=== PATIENT | female | born 1930 | race Caucasian/White ===

== ENCOUNTER 2016-09-23 15:21 | Inpatient (IN) | payer MEDICARE, BC ==
[~2016-09-23] VITALS: Ht 165.1 cm; Wt 73.9 kg
[~2016-09-23 15:21] MED LIST: AMLO10TA4 PO; ATOR20TA PO; CHOL20004 PO; HYDR-3326 PO; LISI10TA5 PO; METO50TA7 PO; PANT40TA2 PO; PROP150T2 PO; RIVA10TA PO; SITA50TA PO
[2016-09-23] MEDS ORDERED: LEVEMIR INSULIN (15:37)
[2016-09-23] MEDS ORDERED: SIMV40TA5 PO (15:37)
[2016-09-23] MEDS ORDERED: magnesium PO (15:37)
[2016-09-23] MEDS ORDERED: ALLO300T2 PO (15:37)
--- NOTE | 2016-09-23 15:40 | NUR ---
NEW ADMISSION TO ROOM 212. PATIENT ALERT AND ORIENTED IN NO ACUTE DISTRESS. NO C/O PAIN AT THIS TIME. ADMISSION ORDERS RECEIVED FROM DR. BLANCA.
[2016-09-23 15:52] LABS: BASOPHILS # (AUTO) 0.3 K/uL (0.0-0.2); BASOPHILS % (AUTO) 1.5 % (0.0-2.0); EOSINOPHILS % (AUTO) 0.1 % (0.0-7.0); HEMATOCRIT 38.8 % (37.0-47.0); HEMOGLOBIN 12.5 g/dL (12.0-16.0); LYMPHOCYTES # (AUTO) 0.6 K/uL (0.8-4.8); LYMPHOCYTES % (AUTO) 2.8 % (20.5-51.5); MEAN CORPUSCULAR HEMOGLOBIN 28.8 uug (27.0-31.0); MEAN CORPUSCULAR HGB CONC 32 g/dL (32.0-37.0); MEAN CORPUSCULAR VOLUME 89.4 fL (81.0-99.0); MONOCYTES # (AUTO) 0.5 K/uL (0.1-1.30); MONOCYTES % (AUTO) 2.4 % (0.0-11.0); NEUTROPHILS % (AUTO) 93.2 % (38.5-71.5); PLATELET COUNT (AUTO) 297 K/uL (150-450); RED BLOOD CELL COUNT(AUTO) 4.34 MIL/uL (4.20-5.40); RED CELL DISTRIBUTION WIDTH 16.2 % (11.5-14.5); WHITE BLOOD COUNT (AUTO) 20.4 K/uL (4.0-11.2)
[2016-09-23] MEDS ORDERED: CEFTRIAXONE 1 G VIAL IM SCH (16:00)
[2016-09-23 16:22] LABS: CALCIUM 8.4 mg/dL (8.5-10.1); POTASSIUM 4.1 mmol/L (3.5-5.1)
[2016-09-23 16:24] LABS: CREATININE 1.4 mg/dL (0.6-1.3)
[2016-09-23 16:26] LABS: ACANTHOCYTES 1+; ANISOCYTOSIS 1+; BAND % (MANUAL) 5 % (0-10); LYMPHOCYTES % (MANUAL) 3 % (20-40); MONOCYTES % (MANUAL) 3 % (2-10); NEUTROPHILS % (MANUAL) 89 % (42-75); PLATELET ESTIMATE ADEQUATE
[2016-09-23] MEDS ORDERED: IV NORMAL SALINE 1000 ML BAG IV ONE (16:30)
[2016-09-23] MEDS ORDERED: CEFTRIAXONE 1 G in IV DEXTROSE 5% 50 ML IV ONE (16:45)
[2016-09-23] MEDS ORDERED: CEFTRIAXONE 1 G VIAL ONE (17:02)
--- NOTE | 2016-09-23 17:20 | NUR ---
Urine collection endorsed to Cadd Instructor. Unable to collect in ER , patient refused during attempt
[2016-09-23 17:25] LABS: LACTIC ACID 2.1 mmol/L (0.4-2.0)
--- NOTE | 2016-09-23 17:25 | NUR ---
Pt. admitted to Med Surg , under care of . Dx : Leukocytosis/UTI Belongs List completed.
[2016-09-23 18:00] VITALS: BP 156/62
[2016-09-23] MEDS ORDERED: CEFTRIAXONE 1 G in IV DEXTROSE 5% 50 ML IV SCH (18:00)
[2016-09-23] MEDS ORDERED: IV D5/ 0.9% NACL 1,000 ML IV PRN (18:00)
[2016-09-23] MEDS: IV D5/ 0.9% NACL 1,000 ML IV PRN (19:09)
--- NOTE | 2016-09-23 19:39 | NUR ---
END OF SHIFT NOTE: PATIENT IN NO ACUTE DISTRESS THROUGHOUT SHIFT. DENIED PAIN. VSS. IVF RUNNING AT THIS TIME. HAD A BM . IVF RUNNING. FALL PRECAUTIONS IN PLACE. UNABLE TO COLLECT URINE ENDORSED TO RN AND SBAR REPORT GIVEN TO YOUSUF MART.
[2016-09-23 19:52] LABS: BILIRUBIN,DIRECT 0.1 mg/dL (0.0-0.2); BILIRUBIN,TOTAL 0.3 mg/dL (0.2-1.0)
[2016-09-23 20:00] VITALS: BP 132/42
[2016-09-23] MEDS ORDERED: SIMVASTATIN 40 MG TABLET PO SCH (21:00)
[2016-09-23] MEDS: RIVAROXABAN 15 MG TABLET PO SCH (23:51)
[2016-09-24] MEDS: MORPHINE SULFATE 2 MG/1 ML DISP.SYRIN IV PRN ×2 (00:09→09:36)
[2016-09-24] MEDS ORDERED: MORPHINE SULFATE 2 MG/1 ML DISP.SYRIN ONE (00:09)
[2016-09-24 04:07] VITALS: BP 141/55
[2016-09-24] MEDS: IV D5/ 0.9% NACL 1,000 ML IV PRN (07:43)
--- NOTE | 2016-09-24 08:00 | NUR ---
SEEN BY DR QUINN MADE AWARE OF LAB RESULTS SO WITH URINE, AND ELEVATED GLUCOSE WITH ORDER
[2016-09-24 08:08] LABS: BASOPHILS # (AUTO) 0.2 K/uL (0.0-0.2); BASOPHILS % (AUTO) 0.6 % (0.0-2.0); HEMOGLOBIN 11.6 g/dL (12.0-16.0); LYMPHOCYTES # (AUTO) 1.1 K/uL (0.8-4.8); LYMPHOCYTES % (AUTO) 4.2 % (20.5-51.5); MEAN CORPUSCULAR HEMOGLOBIN 29.7 uug (27.0-31.0); MEAN CORPUSCULAR HGB CONC 33 g/dL (32.0-37.0); MEAN CORPUSCULAR VOLUME 89.7 fL (81.0-99.0); MONOCYTES # (AUTO) 0.7 K/uL (0.1-1.30); MONOCYTES % (AUTO) 2.7 % (0.0-11.0); NEUTROPHILS # (AUTO) 24.4 K/uL (1.8-8.9); NEUTROPHILS % (AUTO) 92.5 % (38.5-71.5); PLATELET COUNT (AUTO) 311 K/uL (150-450); RED CELL DISTRIBUTION WIDTH 15.9 % (11.5-14.5); WHITE BLOOD COUNT (AUTO) 26.4 K/uL (4.0-11.2)
[2016-09-24 08:19] LABS: CALCIUM 7.5 mg/dL (8.5-10.1); POTASSIUM 3.2 mmol/L (3.5-5.1)
[2016-09-24 08:40] LABS: *BLOOD, URINE NEGATIVE (NEGATIVE); *CLARITY,URINE CLOUDY (CLEAR); *COLOR,URINE YELLOW (YELLOW); *KETONES,URINE TRACE (NEGATIVE); *UROBILINOGEN,URINE 0.2 E.U./dl (NORMAL); NITRITE, URINE NEGATIVE (NEGATIVE); UGLUCOSE NEGATIVE (NEGATIVE)
[2016-09-24 08:46] LABS: CREATININE 1.4 mg/dL (0.6-1.3)
[2016-09-24 08:54] LABS: *BILIRUBIN,URIN 1+ (NEGATIVE); *PROTEIN,URINE 3+ (NEGATIVE); LEUKOCYTE ESTERASE ,URINE TRACE (NEGATIVE)
[2016-09-24 08:56] LABS: ICTOTEST POSITIVE (NEGATIVE)
[2016-09-24 08:59] LABS: BACTERIA,URINE MA /HPF (NONE SEEN); RBC,URINE NONE SEEN /HPF (0-3); SQUAMOUS EPITHELIAL CELL,UR FEW /HPF (NONE SEEN)
[2016-09-24] MEDS ORDERED: DEXTROSE 50% 50 ML DISP.SYRIN IV PRN ×2 (09:00)
[2016-09-24] MEDS ORDERED: INSULIN REGULAR, HUMAN 300 UNIT/3 ML VIAL SQ PRN (09:00)
[2016-09-24] MEDS ORDERED: SITAGLIPTIN PHOSPHATE 50 MG TABLET PO SCH (09:00)
[2016-09-24] MEDS ORDERED: POTASSIUM CHLORIDE 10 MEQ CAPSULE.SA PO ONE (09:00)
[2016-09-24] MEDS ORDERED: INSULIN DETEMIR 300 UNIT/3 ML CARTRIDGE SQ SCH (09:00)
[2016-09-24] MEDS ORDERED: INSULIN REGULAR, HUMAN 300 UNITS/3 ML VIAL SQ PRN (09:00)
[2016-09-24] MEDS: MAGNESIUM OXIDE 250 MG TABLET PO SCH (09:30)
[2016-09-24] MEDS: PROPAFENONE HCL 150 MG TABLET PO SCH ×2 (09:31→17:32)
[2016-09-24] MEDS: METOPROLOL SUCCINATE XL 50 MG TAB.SR.24H PO SCH (09:31)
[2016-09-24] MEDS: CHOLECALCIFEROL 1,000 UNIT TABLET PO SCH (09:31)
[2016-09-24] MEDS: AMLODIPINE 10 MG TABLET PO SCH (09:31)
[2016-09-24] MEDS: LISINOPRIL 10 MG TABLET PO SCH (09:32)
[2016-09-24] MEDS: ONDANSETRON 4 MG/2 ML VIAL IV PRN ×2 (09:36→17:38)
[2016-09-24] MEDS: SITAGLIPTIN PHOSPHATE 50 MG TABLET PO SCH (09:47)
[2016-09-24] MEDS ORDERED: BLOOD SUGAR DIAGNOSTIC 1 EACH STRIP VI SCH (11:30)
[2016-09-24 11:47] VITALS: BP 141/53
[2016-09-24] MEDS: BLOOD SUGAR DIAGNOSTIC 1 EACH STRIP VI SCH ×3 (11:59→21:20)
[2016-09-24] MEDS: INSULIN REGULAR, HUMAN 300 UNIT/3 ML VIAL SQ PRN (12:02)
--- NOTE | 2016-09-24 12:29 | NUR ---
RESTING WITH EYES CLOSED NO SIGNS OF PAIN OR DISTRESS. REFUSED TO EAT LUNCH. CONTINUE WITH IVF AT 80ML/HR
--- NOTE | 2016-09-24 13:40 | NUR ---
CLINICAL PHARMACY NOTE: VANCOMYCIN DOSING Request for vancomycin dosing on 86 y/o female 5'5" 134lbs for sepsis Temp 98.2 BUN 35 Scr 1.4 WBC 26.4 also on Zosyn Give vancomycin 1gm ivpb today will dose by levels. Random vancomycin level ordered 24hours post dose. Will continue to monitor
[2016-09-24] MEDS ORDERED: IV NORMAL SALINE 250 ML IV ONE (13:49)
[2016-09-24] MEDS ORDERED: IOHEXOL 300MG/ML 100 ML INFUS..BTL ONE (13:49)
[2016-09-24] MEDS ORDERED: METRONIDAZOLE 500 MG/NS 100ML 500 MG in PREMIXED 1 EACH IV SCH (14:00)
[2016-09-24] MEDS: PIPERACILLIN/TAZOBACTAM/D5W 2.25 G in PREMIXED 1 EACH IV SCH ×2 (14:17→20:28)
[2016-09-24] MEDS ORDERED: VANCOMYCIN IV 1 G in PREMIXED 0 EACH IV ONE (15:00)
[2016-09-24 15:14] VITALS: BP 130/49
--- NOTE | 2016-09-24 16:43 | NUR ---
PATIENT GOING TO NUCLEAR MEDICINE FOR CT SCAN NOW
[2016-09-24] MEDS ORDERED: CEFTRIAXONE 1 G in IV DEXTROSE 5% 50 ML IV SCH (17:00)
[2016-09-24] MEDS: RIVAROXABAN 15 MG TABLET PO SCH (17:34)
[2016-09-24] MEDS ORDERED: RIVAROXABAN 15 MG TABLET PO SCH (18:00)
[2016-09-24] MEDS ORDERED: RIVAROXABAN 10 MG TABLET PO SCH (18:00)
[2016-09-24] MEDS ORDERED: ALLOPURINOL 300 MG TABLET PO SCH (18:00)
--- NOTE | 2016-09-24 18:23 | NUR ---
URINE NOTED CLOUDY WITH FOUL ODOR.
--- NOTE | 2016-09-24 19:25 | NUR ---
nsg: pt received awake. has severe generalized edema. on 2L O2 via nc saturating at 95%. f/c draining cloudy colored urine, with foul odor. HOB elevated 35 degrees. bue elevated on pillows. denies n /v and abd pain at this time. cont to monitor.
--- NOTE | 2016-09-24 20:30 | NUR ---
Dr. Govea, radiologist, called regarding result of ct abd/pelvis. per md, pt has diverticulitis and renal lesion, and to notify sweet potato disintegrator. will call Dr. Levy.
--- NOTE | 2016-09-24 20:40 | NUR ---
nsg: paged Dr. Levy to notify regarding ct abd/pelvis result and also, concern that pt is more edematous than this morning. awaiting call back.
[2016-09-24 20:43] VITALS: BP 130/52
[2016-09-24] MEDS ORDERED: ATORVASTATIN 20 MG TABLET PO SCH (21:00)
--- NOTE | 2016-09-25 | NUR ---
nsg: no change in condition.
[2016-09-25] MEDS: IV D5/ 0.9% NACL 1,000 ML IV PRN (01:49)
[2016-09-25] MEDS: PIPERACILLIN/TAZOBACTAM/D5W 2.25 G in PREMIXED 1 EACH IV SCH ×5 (03:20→19:30)
[2016-09-25 05:21] VITALS: BP 115/49
--- NOTE | 2016-09-25 05:51 | NUR ---
nsg: pt more edematous compared fr last night. stopped ivf and will notify md. unable to obtain blood for blood draw bec pt is severely edematous. will cont to monitor.
--- NOTE | 2016-09-25 05:55 | NUR ---
nsg: DR. Levy never called back. pt is severely edematous. will notify .
[2016-09-25] MEDS: BLOOD SUGAR DIAGNOSTIC 1 EACH STRIP VI SCH ×4 (06:30→20:57)
--- NOTE | 2016-09-25 07:45 | NUR ---
INFORMED THE PATIENT THAT HER BLOOD SUGAR RESULT CALLS FOR INSULIN COVERAGE AND THAT SHE NEEDED TO TRY AND EAT HER BREAKFAST BUT SHE STATED THAT SHE WAS NOT HUNGRY AND WILL NOT EAT SO I DID NOT GIVE HER THE DUE INSULIN FOR FEAR OF HYPOGLYCEMIA.
--- NOTE | 2016-09-25 08:15 | NUR ---
PATIENT REFUSED TO EAT HER BREAKFAST REQUESTED FOR JELLO AND TOOK COSMO TWO SPOONS OF THE JELLO AND REFUSED THE REST.
--- NOTE | 2016-09-25 08:30 | NUR ---
PATIENT HAS EDEMA OF THE ENTIRE BODY ESPECIALLY THE UPPER AND LOWE EXTREMITIES ELEVATED ON PILLOWS TO FACILITATE THE DRAINAGE OF THE EDEMA.SHE IS ON FIRST STEP MATTRASS NOTED REDNESS OF THE SACRAL AREA DR BLANCA NOTIFIED WITH ORDERS.PATIENT TURNED AND REPOSITIONED Q2H MADE COMFORTABLE.
[2016-09-25] MEDS: SITAGLIPTIN PHOSPHATE 50 MG TABLET PO SCH (08:51)
[2016-09-25] MEDS: METOPROLOL SUCCINATE XL 50 MG TAB.SR.24H PO SCH (08:51)
[2016-09-25] MEDS: AMLODIPINE 10 MG TABLET PO SCH (08:51)
[2016-09-25] MEDS: PROPAFENONE HCL 150 MG TABLET PO SCH ×2 (08:51→16:43)
[2016-09-25] MEDS: LISINOPRIL 10 MG TABLET PO SCH (08:58)
[2016-09-25] MEDS: CHOLECALCIFEROL 1,000 UNIT TABLET PO SCH (08:58)
[2016-09-25] MEDS: MAGNESIUM OXIDE 250 MG TABLET PO SCH (09:06)
[2016-09-25] MEDS: Z GUARD REMEDY PASTE 57 GM TUBE TOP SCH ×2 (09:30→19:35)
--- NOTE | 2016-09-25 11:10 | NUR ---
DR QUINN HERE TO SEE AND EXAMINE PATIENT AND HE IS AWARE OF GENERALISED EDEMA OF THE ENTIRE BODY ESPECIALLY BILATERAL UPPER AND LOWER EXTREMITIES WITH NEW ORDERS AND NOTED.
[2016-09-25] MEDS ORDERED: BUMETANIDE INJ 4 MG in IV DEXTROSE 5% 24 ML IV ONE (11:15)
[2016-09-25 11:33] VITALS: BP 135/48
[2016-09-25] MEDS: POTASSIUM CHLORIDE 50 ML IV SCH ×2 (11:37→12:49)
[2016-09-25] MEDS: INSULIN REGULAR, HUMAN 300 UNIT/3 ML VIAL SQ PRN ×2 (11:41→21:04)
--- NOTE | 2016-09-25 12:41 | NUR ---
RECEIVED RESULT FROM [email or web address] PATIENT IS POSITIVE FOR C DIFF IN STOOL PAGED DR QUINN AWAITING FOR RETURN CALL.PATIENT IS ALREADY ON ISOLATION AT THIS TIME.
[2016-09-25 15:41] VITALS: BP 123/51
[2016-09-25 15:45] VITALS: BP 123/51
--- NOTE | 2016-09-25 15:45 | NUR ---
DR JOSE MARTIN BROWN RETURNED CALL NOTIFIED HER OF POSITIVE C DIFF IN THE STOOL WITH NEW ORDERS AND NOTED.
--- NOTE | 2016-09-25 16:30 | NUR ---
MID LINE INSERTED TO HER LEFT UPPER ARM BY DR ZORAN KIM AND PATIENT TOLERATED PROCEDURE WELL REMAIN ON BUMEX DRIP ORDERED.
--- NOTE | 2016-09-25 16:37 | NUR ---
Discharge Plan: The patient might be needing group home care once medically cleared. She only has Medicare and no secondary insurance. She and her family are aware but she does not qualify for [facility] and will have a co-pay at the SNF. Spoke at length with her brother, Jarett [ ], and caregiver, Clover [ ] about the discharge and they both stated that they might hire an extra caregiver at home. Dr. Levy is aware and will look at different facilities that can accommodate her needs and work with her co-pay. CM/SW will follow-up.
[2016-09-25 17:03] LABS: BILIRUBIN,TOTAL 0.3 mg/dL (0.2-1.0); CALCIUM 7.4 mg/dL (8.5-10.1); MAGNESIUM 1.3 mg/dL (1.8-2.4); PHOSPHOROUS 3.1 mg/dL (2.5-4.9); POTASSIUM 3.4 mmol/L (3.5-5.1); TOTAL PROTEIN, SERUM 4.5 g/dL (6.4-8.2)
[2016-09-25 17:09] LABS: CREATININE 1.7 mg/dL (0.6-1.3)
[2016-09-25] MEDS ORDERED: VANCOMYCIN IV 1 G in PREMIXED 0 EACH IV ONE ×2 (17:15→18:30)
--- NOTE | 2016-09-25 17:15 | NUR ---
RECEIVED RESULT FROM THE LAB ALBUMIN LEVEL IS 1.[address] IN[address] JOSE MARTIN BROWN WITH NO NEW ORDERS AT THIS TIME.
[2016-09-25 17:16] LABS: ALBUMIN 1.2 g/dL (3.4-5.0)
--- NOTE | 2016-09-25 17:17 | NUR ---
CLINICAL PHARMACY NOTE: VANCOMYCIN DOSING Request for vancomycin dosing on 86 y/o female 5'5" 134lbs for sepsis Temp 98.2 BUN 36 Scr 1.7 WBC 26.4 (09/24) also on Zosyn Random: 10 @1700 09/25 today Will continue to dose by fall off levels as Scr increased and advanced age. Random drawn late today, dosed another 1gm vanco x 1 based off random level when received. Another random vancomycin level ordered 24hours post dose (due tomorrow 09/26 @1700). Will continue to monitor and re-dose as appropriate. Addendum: 09/25/16 at 1728 by LORENA JOE ADM PT ONLY HAS ONE IV LINE, IS SEVERELY EDEMATOUS AND ON BUMEX DRIP, ENDING 1829. RESCHEDULED VANCO FOR 1829 UNABLE TO ADMINISTER
[2016-09-25] MEDS: RIVAROXABAN 15 MG TABLET PO SCH (17:47)
[2016-09-25 19:00] VITALS: BP 136/45
--- NOTE | 2016-09-25 21:41 | NUR ---
Tarry small liquid stool noted, stool sample sent to lab for stool culture. Perianal care provided. Kept comfortable.
[2016-09-25] MEDS: METRONIDAZOLE 500 MG/NS 100ML 500 MG in PREMIXED 1 EACH IV SCH (23:09)
[2016-09-25] MEDS: MORPHINE SULFATE 2 MG/1 ML DISP.SYRIN IV PRN (23:13)
[2016-09-25] MEDS: ONDANSETRON 4 MG/2 ML VIAL IV PRN (23:13)
[2016-09-26] MEDS: PIPERACILLIN/TAZOBACTAM/D5W 2.25 G in PREMIXED 1 EACH IV SCH ×4 (01:41→19:51)
[2016-09-26 04:43] VITALS: BP 153/57
[2016-09-26] MEDS: METRONIDAZOLE 500 MG/NS 100ML 500 MG in PREMIXED 1 EACH IV SCH ×3 (05:01→21:16)
[2016-09-26 06:00] LABS: BILIRUBIN,TOTAL 0.4 mg/dL (0.2-1.0); CALCIUM 6.9 mg/dL (8.5-10.1); PHOSPHOROUS 3.1 mg/dL (2.5-4.9); POTASSIUM 2.9 mmol/L (3.5-5.1)
[2016-09-26 06:07] LABS: CREATININE 1.6 mg/dL (0.6-1.3)
[2016-09-26 06:08] LABS: MAGNESIUM 1.1 mg/dL (1.8-2.4)
[2016-09-26] MEDS: BLOOD SUGAR DIAGNOSTIC 1 EACH STRIP VI SCH ×4 (06:40→21:00)
[2016-09-26] MEDS: IV D5/ 0.9% NACL 1,000 ML IV PRN ×2 (06:50→19:00)
--- NOTE | 2016-09-26 07:00 | NUR ---
Kept comfortable. No acute resp distress.
[2016-09-26] MEDS: PROPAFENONE HCL 150 MG TABLET PO SCH ×2 (08:01→16:47)
[2016-09-26] MEDS: METOPROLOL SUCCINATE XL 50 MG TAB.SR.24H PO SCH (08:02)
[2016-09-26] MEDS: AMLODIPINE 10 MG TABLET PO SCH (08:02)
[2016-09-26] MEDS: CHOLECALCIFEROL 1,000 UNIT TABLET PO SCH (08:02)
[2016-09-26] MEDS: LISINOPRIL 10 MG TABLET PO SCH (08:02)
[2016-09-26] MEDS: Z GUARD REMEDY PASTE 57 GM TUBE TOP SCH ×2 (08:03→20:00)
[2016-09-26 08:27] LABS: HEMATOCRIT 30.8 % (37.0-47.0); HEMOGLOBIN 9.9 g/dL (12.0-16.0); MEAN CORPUSCULAR HEMOGLOBIN 29.5 uug (27.0-31.0); MEAN CORPUSCULAR VOLUME 91.8 fL (81.0-99.0); RED BLOOD CELL COUNT(AUTO) 3.36 MIL/uL (4.20-5.40); WHITE BLOOD COUNT (AUTO) 38.1 K/uL (4.0-11.2)
[2016-09-26 08:28] LABS: EOSINOPHILS % (AUTO) 0.1 % (0.0-7.0); LYMPHOCYTES # (AUTO) 0.7 K/uL (0.8-4.8); LYMPHOCYTES % (AUTO) 1.9 % (20.5-51.5); MEAN CORPUSCULAR HGB CONC 32 g/dL (32.0-37.0); MONOCYTES % (AUTO) 2.6 % (0.0-11.0); NEUTROPHILS # (AUTO) 36.4 K/uL (1.8-8.9); NEUTROPHILS % (AUTO) 95.4 % (38.5-71.5); PLATELET COUNT (AUTO) 270 K/uL (150-450); RED CELL DISTRIBUTION WIDTH 18.1 % (11.5-14.5)
--- NOTE | 2016-09-26 09:00 | NUR ---
Dr Levy notified of elevated WBC 38,000, K2.9, Albumin 1.0, H/H 9.9/30.8, MG 1.1 new orders received and carried out. Notified Dr Howe of elevated WBC 3800 Urine sent out and blood culture done as ordered
[2016-09-26] MEDS: POTASSIUM CHLORIDE 50 ML IV SCH ×8 (09:37→23:02)
--- NOTE | 2016-09-26 10:00 | NUR ---
Pt alert and oriented x 4. Clarified with pt code status on what she wants full code or no code secondary to computer charting states full code and kardex paper written DNR. Pt states that she wants to be full code.
[2016-09-26 10:16] LABS: BAND % (MANUAL) 6 % (0-10); LYMPHOCYTES % (MANUAL) 5 % (20-40); NEUTROPHILS % (MANUAL) 89 % (42-75)
[2016-09-26 10:19] LABS: ANISOCYTOSIS 1+; OVALOCYTES 1+; PLATELET ESTIMATE ADEQUATE; TARGET CELLS 1+
[2016-09-26] MEDS ORDERED: METOLAZONE 2.5 MG TABLET PO ONE (11:15)
[2016-09-26 12:00] VITALS: BP 105/35
[2016-09-26] MEDS ORDERED: BUMETANIDE INJ 3 MG in IV DEXTROSE 5% 48 ML IV ONE (12:00)
--- NOTE | 2016-09-26 12:00 | NUR ---
Spoke with Pharmacist about second K ordered by DR paulino. Plan and recommendation will be to finish giving first K40meq order, give MAG to help with cardiac function then Give plasmanate then GIVE BUMEX DRIP then recheck K then give the 2nd K40meq ordered by DR PAULINO.
[2016-09-26] MEDS: MAGNESIUM SULFATE/D5W 100 ML IV SCH ×2 (12:13→14:00)
[2016-09-26] MEDS: ALBUMIN HUMAN 25% 25 GM in PREMIXED 1 EACH IV SCH ×2 (12:15→17:02)
[2016-09-26] MEDS: VANCOMYCIN FOR PO/GT/NG USE PO SCH ×2 (12:30→17:11)
--- NOTE | 2016-09-26 12:39 | NUR ---
CLINICAL PHARMACY NOTE: VANCOMYCIN DOSING Subjective: Continue vancomycin dosing on 86 y/o female 5'5" 134lbs for sepsis Objective Temp 97.7 BUN 34 Scr 1.6 WBC 38.1 Plan: Will continue to dose by fall off levels as Scr increased and advanced age. Patient received vancomycin 1gm IVPB x1 yesterday at 1830 for vancomycin random level of 10 mcg/ml. Will check random vancomycin level ordered for today at 1700 for further dosing. Will continue to monitor and re-dose as appropriate. Addendum: 09/26/16 at 1814 by WILLIAM JUDGE RANDOM LEVEL 17 ORDER VANCOMYCIN 1GM X 1 IVPB RANDOM LEVEL TOMORROW EVENING
[2016-09-26 16:00] VITALS: BP 129/45
[2016-09-26] MEDS: INSULIN REGULAR, HUMAN 300 UNIT/3 ML VIAL SQ PRN ×2 (16:56→21:06)
[2016-09-26] MEDS: RIVAROXABAN 15 MG TABLET PO SCH (17:11)
[2016-09-26 17:40] LABS: CALCIUM 7.1 mg/dL (8.5-10.1)
[2016-09-26 17:45] LABS: CREATININE 1.9 mg/dL (0.6-1.3)
[2016-09-26] MEDS ORDERED: VANCOMYCIN IV 1 G in PREMIXED 0 EACH IV ONE (18:00)
--- NOTE | 2016-09-26 18:30 | NUR ---
Got 200 cc urine out from bumex drip. Repeat K 3.0. 1900 Report Given to Silvia from CCU. Notified of second set of 40 meq KCl bags to be still given and Vanco IV to finish.
--- NOTE | 2016-09-26 19:00 | NUR ---
Patient transferred to CCU-5 under [facility] status. Received patient; A/Ox4, cooperative, controlled a-fib on bedside monitor, hemodynamically stable, SpO2 and RR WNL on 2L O2 via nasal cannula. Elizondo in place and draining. On 1st step mattress. Patient settled in room, unit orientation provided. Call light within reach. SBAR received from Algersarah Gilman RN. Will continue plan of care
[2016-09-26 19:10] VITALS: BP 134/64
[2016-09-26 20:00] VITALS: BP 138/54
[2016-09-26] MEDS: ONDANSETRON 4 MG/2 ML VIAL IV PRN (21:30)
[2016-09-27] VITALS: BP 140/55
[2016-09-27] MEDS: VANCOMYCIN FOR PO/GT/NG USE PO SCH ×5 (00:26→23:55)
[2016-09-27] MEDS: ALBUMIN HUMAN 25% 25 GM in PREMIXED 1 EACH IV SCH ×2 (00:30→05:49)
--- NOTE | 2016-09-27 00:31 | NUR ---
Noted emesis x4, total <100 mL. First episode, dark brown in color, about 25 mL. Afterwards, emesis color was clear and thin
[2016-09-27] MEDS: PIPERACILLIN/TAZOBACTAM/D5W 2.25 G in PREMIXED 1 EACH IV SCH ×4 (02:08→20:35)
[2016-09-27 04:00] VITALS: BP 133/57
[2016-09-27] MEDS: ONDANSETRON 4 MG/2 ML VIAL IV PRN ×3 (04:38→20:36)
[2016-09-27] MEDS: MORPHINE SULFATE 2 MG/1 ML DISP.SYRIN IV PRN (04:39)
[2016-09-27] MEDS: METRONIDAZOLE 500 MG/NS 100ML 500 MG in PREMIXED 1 EACH IV SCH ×3 (05:46→22:04)
[2016-09-27 05:50] LABS: BASOPHILS % (AUTO) 0.1 % (0.0-2.0); EOSINOPHILS # (AUTO) 0.1 K/uL (0.0-0.7); EOSINOPHILS % (AUTO) 0.3 % (0.0-7.0); HEMATOCRIT 23.7 % (37.0-47.0); HEMOGLOBIN 7.8 g/dL (12.0-16.0); LYMPHOCYTES # (AUTO) 0.7 K/uL (0.8-4.8); MEAN CORPUSCULAR HEMOGLOBIN 29.8 uug (27.0-31.0); MEAN CORPUSCULAR HGB CONC 33 g/dL (32.0-37.0); MEAN CORPUSCULAR VOLUME 90.9 fL (81.0-99.0); MONOCYTES # (AUTO) 0.7 K/uL (0.1-1.30); MONOCYTES % (AUTO) 1.9 % (0.0-11.0); NEUTROPHILS # (AUTO) 33.6 K/uL (1.8-8.9); NEUTROPHILS % (AUTO) 95.7 % (38.5-71.5); PLATELET COUNT (AUTO) 184 K/uL (150-450); RED BLOOD CELL COUNT(AUTO) 2.61 MIL/uL (4.20-5.40); RED CELL DISTRIBUTION WIDTH 16.5 % (11.5-14.5)
[2016-09-27 05:51] LABS: WHITE BLOOD COUNT (AUTO) 35.1 K/uL (4.0-11.2)
[2016-09-27 05:55] LABS: ALBUMIN 2.7 g/dL (3.4-5.0); BILIRUBIN,TOTAL 0.6 mg/dL (0.2-1.0); CALCIUM 7.1 mg/dL (8.5-10.1); MAGNESIUM 1.4 mg/dL (1.8-2.4); PHOSPHOROUS 2.5 mg/dL (2.5-4.9); POTASSIUM 2.9 mmol/L (3.5-5.1); TOTAL PROTEIN, SERUM 4.7 g/dL (6.4-8.2)
[2016-09-27 05:56] LABS: CREATININE 1.9 mg/dL (0.6-1.3)
--- NOTE | 2016-09-27 06:00 | NUR ---
Patient refused PO Vancomycin due to nausea and vomiting after previous dose was given. Teaching provided of risks/benefits. Continues to refuse.
[2016-09-27 06:03] LABS: BAND % (MANUAL) 2 % (0-10); LYMPHOCYTES % (MANUAL) 3 % (20-40); MONOCYTES % (MANUAL) 2 % (2-10); NEUTROPHILS % (MANUAL) 92 % (42-75); PLATELET ESTIMATE ADEQUATE
[2016-09-27 06:05] LABS: ANISOCYTOSIS 1+; OVALOCYTES 1+; TARGET CELLS 1+
--- NOTE | 2016-09-27 06:05 | NUR ---
Dark brown emesis x2, approximately 15 mL each time.
--- NOTE | 2016-09-27 06:17 | NUR ---
Patient is resting in bed. Complains of abdominal pain and noted nausea/vomiting dark brown emesis. No other events throughout night. Hemodynamically stable, controlled A-fib. Weaned patient off supplemental O2, oxygen saturation WNL on room air, RR WNL. Afebrile. Elizondo draining well, total of 550 mL urinary output. No bowel movement. Contact isolation maintained. Skin care provided. Frequent turning and 1st step mattress. Needs attended to. Call light within reach.
[2016-09-27] MEDS: BLOOD SUGAR DIAGNOSTIC 1 EACH STRIP VI SCH ×4 (07:34→20:35)
[2016-09-27 08:00] VITALS: BP 139/56
[2016-09-27] MEDS: PROPAFENONE HCL 150 MG TABLET PO SCH ×2 (08:01→17:02)
[2016-09-27] MEDS: METOPROLOL SUCCINATE XL 50 MG TAB.SR.24H PO SCH (08:01)
[2016-09-27] MEDS: AMLODIPINE 10 MG TABLET PO SCH (08:01)
[2016-09-27] MEDS: LISINOPRIL 10 MG TABLET PO SCH (08:02)
[2016-09-27] MEDS: Z GUARD REMEDY PASTE 57 GM TUBE TOP SCH ×2 (08:03→20:35)
[2016-09-27] MEDS: CHOLECALCIFEROL 1,000 UNIT TABLET PO SCH (08:06)
[2016-09-27] MEDS ORDERED: MAGNESIUM SULFATE/D5W 100 ML IV SCH (09:15)
[2016-09-27] MEDS: POTASSIUM CHLORIDE 50 ML IV SCH ×4 (09:42→12:39)
[2016-09-27] MEDS: INSULIN REGULAR, HUMAN 300 UNIT/3 ML VIAL SQ PRN ×2 (11:37→17:06)
[2016-09-27 12:00] VITALS: BP 141/63
[2016-09-27] MEDS: IV D5/ 0.9% NACL 1,000 ML IV PRN (14:39)
--- NOTE | 2016-09-27 15:08 | NUR ---
Spoke with Dr. Levy on the telephone regarding pt's low blood count H/H for today. stated that no blood transfusion is needed at this time.
--- NOTE | 2016-09-27 15:35 | NUR ---
Full telephone SBAR report given to RN [place] 2nd floor.
--- NOTE | 2016-09-27 16:15 | NUR ---
Pt transferred to 2nd floor room 212-TD via bed with Resource RN and MASTER MERCHANDISER. athletic monitor applied during the trip. All belongings reviewed and returned with the pt. Pt stable and nad noted upon transfer.
[2016-09-27 16:20] VITALS: BP 127/49
--- NOTE | 2016-09-27 16:30 | NUR ---
PT is in no acute distress. Call light is within reach. BAM UE edema +4, Bam LE edema +4 Lung sounds diminished on lower lobes. IV on mid sternum 20 guauge intact. Mid line on left arm flushing well. Pt denies any Nausea and denies pain.
[2016-09-27] MEDS: RIVAROXABAN 15 MG TABLET PO SCH (17:02)
--- NOTE | 2016-09-27 20:00 | NUR ---
PATIENT AWAKE, ALERT,ORIENTED X2,AFEBRILE, SLIGHTLY NAUSEA NOTED,CONTINUE O2 AT 2L/M VIA N/C, URINE OUT PUT ADEQUATE,CLEAR, YELLOWISH ,TURN AND REPOSITION,ON FIRST STEP AIR MATTRESS,FAMILY AT BEDSIDE
[2016-09-27 20:15] VITALS: BP 147/57
--- NOTE | 2016-09-27 20:35 | NUR ---
ZOFRAN 4 MG IV ADMIN FOR C/O NAUSEA.
[2016-09-28 00:30] VITALS: BP 151/64
--- NOTE | 2016-09-28 00:30 | NUR ---
PATIENT REFUSED VANCOMYCIN PO DUE TO FEELING NAUSEA,VOMITING SMALL AMOUNT OF BROWNISH LIQUID , ZOFRAN 4 MG IV GIVEN ATC, NEEDED.HOB ELEVATED,CLOSELY MONITOR.
[2016-09-28] MEDS: PIPERACILLIN/TAZOBACTAM/D5W 2.25 G in PREMIXED 1 EACH IV SCH ×4 (01:02→19:53)
[2016-09-28 04:00] VITALS: BP 118/63
[2016-09-28] MEDS: ONDANSETRON 4 MG/2 ML VIAL IV PRN ×3 (04:43→17:05)
[2016-09-28] MEDS: PROPAFENONE HCL 150 MG TABLET PO SCH ×3 (04:53→21:50)
[2016-09-28 05:14] LABS: BASOPHILS # (AUTO) 0.1 K/uL (0.0-0.2); BASOPHILS % (AUTO) 0.2 % (0.0-2.0); EOSINOPHILS # (AUTO) 0.5 K/uL (0.0-0.7); EOSINOPHILS % (AUTO) 1.5 % (0.0-7.0); HEMATOCRIT 24.9 % (37.0-47.0); HEMOGLOBIN 8.4 g/dL (12.0-16.0); LYMPHOCYTES # (AUTO) 0.8 K/uL (0.8-4.8); LYMPHOCYTES % (AUTO) 2.3 % (20.5-51.5); MEAN CORPUSCULAR HEMOGLOBIN 30.1 uug (27.0-31.0); MEAN CORPUSCULAR HGB CONC 34 g/dL (32.0-37.0); MONOCYTES # (AUTO) 0.7 K/uL (0.1-1.30); MONOCYTES % (AUTO) 2.1 % (0.0-11.0); NEUTROPHILS # (AUTO) 30.8 K/uL (1.8-8.9); NEUTROPHILS % (AUTO) 93.9 % (38.5-71.5); PLATELET COUNT (AUTO) 189 K/uL (150-450); RED CELL DISTRIBUTION WIDTH 16.8 % (11.5-14.5)
[2016-09-28 05:18] LABS: WHITE BLOOD COUNT (AUTO) 32.9 K/uL (4.0-11.2)
--- NOTE | 2016-09-28 05:37 | NUR ---
PATIENT HAD EPISODE OF A FIB WITH RVR,RYTHMOL 150 MG PO ORDER SCHEDULED GIVEN,DR. HIGUERA NOTIFIED ,TO CONTINUE CLOSELY MONITOR.
[2016-09-28 05:40] LABS: BAND % (MANUAL) 3 % (0-10); LYMPHOCYTES % (MANUAL) 4 % (20-40); MONOCYTES % (MANUAL) 5 % (2-10); NEUTROPHILS % (MANUAL) 88 % (42-75)
[2016-09-28 05:41] LABS: ALBUMIN 2.4 g/dL (3.4-5.0); ANISOCYTOSIS 1+; BILIRUBIN,TOTAL 0.7 mg/dL (0.2-1.0); CALCIUM 7.6 mg/dL (8.5-10.1); MAGNESIUM 1.6 mg/dL (1.8-2.4); OVALOCYTES 1+; PHOSPHOROUS 2.5 mg/dL (2.5-4.9); PLATELET ESTIMATE ADEQUATE; POTASSIUM 3.1 mmol/L (3.5-5.1); TARGET CELLS 1+; TOTAL PROTEIN, SERUM 4.7 g/dL (6.4-8.2)
[2016-09-28 05:48] LABS: CREATININE 2.3 mg/dL (0.6-1.3)
--- NOTE | 2016-09-28 06:00 | NUR ---
PATIENT REMAINS ALERT,LETHARGIC,VERBALLY RESPONSE,GENERALIZED EDEMATOUS,TOTAL URINE OUT PUT 550 ML/12 HR SHIFT, AM LAB K=3.1,MG =1.6 REPLACEMENT PER MD ORDERED.
[2016-09-28] MEDS: METRONIDAZOLE 500 MG/NS 100ML 500 MG in PREMIXED 1 EACH IV SCH ×3 (06:10→21:49)
[2016-09-28] MEDS: MAGNESIUM SULFATE/D5W 100 ML IV SCH ×2 (06:10→08:01)
[2016-09-28] MEDS: VANCOMYCIN FOR PO/GT/NG USE PO SCH ×3 (06:11→17:00)
[2016-09-28] MEDS: BLOOD SUGAR DIAGNOSTIC 1 EACH STRIP VI SCH ×4 (06:12→21:04)
[2016-09-28] MEDS ORDERED: MAGNESIUM SULFATE/D5W 100 ML ONE (06:16)
[2016-09-28] MEDS ORDERED: POTASSIUM CHLORIDE 50 ML ONE (06:17)
[2016-09-28] MEDS: POTASSIUM CHLORIDE 50 ML IV SCH ×4 (07:01→11:06)
[2016-09-28 07:52] VITALS: BP 115/62
--- NOTE | 2016-09-28 08:10 | NUR ---
PATIENT RECEIVED IN ROOM RESTING ALERT AWAKE IN NO ACUTE DISTRESS. A. FIB, HR 106 ON DOWNSTREAM BIOMANUFACTURING TECHNICIAN. RESPIRATIONS EVEN AND UNLABORED. OXYGEN ON 3L/NC. HOB ELEVATED. C/O NAUSEA NO VOMITING NOTED. ZOFRAN GIVEN PRESCRIBED.
[2016-09-28] MEDS: METOPROLOL SUCCINATE XL 50 MG TAB.SR.24H PO SCH ×2 (08:24→09:00)
[2016-09-28] MEDS: CHOLECALCIFEROL 1,000 UNIT TABLET PO SCH ×2 (08:25→09:00)
[2016-09-28] MEDS: LISINOPRIL 10 MG TABLET PO SCH ×2 (08:25→09:00)
[2016-09-28] MEDS: AMLODIPINE 10 MG TABLET PO SCH ×2 (08:26→09:00)
[2016-09-28] MEDS: Z GUARD REMEDY PASTE 57 GM TUBE TOP SCH ×2 (08:37→20:41)
[2016-09-28] MEDS ORDERED: POTASSIUM PHOSPHATE MM 5 MMOL in IV DEXTROSE 5% 100 ML IV SCH (08:45)
[2016-09-28] MEDS ORDERED: MAGNESIUM SULFATE/D5W 100 ML IV SCH (08:45)
--- NOTE | 2016-09-28 08:55 | NUR ---
PATIENT SEEN BY DR. QUINN. DETAILED REPORT GIVEN. REPORTED PATIENT CONTINUES WITH C/O NAUSEA. NEW ORDERS RECEIVED TO HOLD PO MEDS AT THIS TIME.
--- NOTE | 2016-09-28 11:20 | NUR ---
PATIENT HAS X1 EPISODE OF VOMITING, HR DROPPED TO 40s NON SUSTAINED. PATIENT MEDICATED WITH ZOFRAN Q6HR PRN. HOB ELEVATED.
[2016-09-28 11:30] VITALS: BP 147/69
--- NOTE | 2016-09-28 12:11 | NUR ---
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 PT NOTED TO HAVE MULTIPLE CO-MORBIDITIES INCLUDING ACUTE RENAL FAILURE WITH GENERALIZED EDEMA, POOR ORAL INTAKE, SEPSIS, IMMOBILITY, C-DIF INFECTION WITH INCONTINENCE OF LOOSE STOOL. FURTHER SKIN BREAKDOWN MAY BE UNAVOIDABLE. PT ON FIRST STEP MATTRESS. ALL SKIN PROTECTION MEASURES IN PLACE. ALL SKIN AND WOUND RECOMMENDATIONS DISCUSSED WITH NURSING STAFF. IN AGREEMENT WITH PLAN OF CARE. Addendum: 09/28/16 at 1215 by EUN RETANA RN Amended: Links added. Addendum: 09/28/16 at 1216 by EUN RETANA RN SOME STAINING OF SKIN NOTED TO SACRAL/BUTTOCKS AREAS.
[2016-09-28] MEDS: INSULIN REGULAR, HUMAN 300 UNIT/3 ML VIAL SQ PRN (12:22)
--- NOTE | 2016-09-28 12:48 | NUR ---
PATIENT HAD AN EPISODE OF VOMITING AFTER VANCO PO GIVEN.
--- NOTE | 2016-09-28 12:49 | NUR ---
PATIENT PRESENTS WITH STAGE II ULCERS TO SACRUM AND RT BUTTOCK NOTED UPON ASSESSMENT. DR. QUINN NOTIFIED. NEW ORDERS FOR WOUND AND DIETARY CONSULT RECEIVED. Addendum: 09/28/16 at 1252 by TONNY KIMBALL RN INTERVENTION AT 0855
[2016-09-28 15:21] VITALS: BP 129/52
[2016-09-28] MEDS: RIVAROXABAN 15 MG TABLET PO SCH (17:01)
--- NOTE | 2016-09-28 18:20 | NUR ---
END OF SHIFT NOTE: PATIENT IN NO ACUTE DISTRESS THROUGHOUT SHIFT. DENIED PAIN. VSS. CONTROLLED A. FIB ON DRUG ABUSE RESISTANCE EDUCATION OFFICER. RESPIRATIONS EVEN AND UNLABORED. OXYGEN ON 2.5L/NC. PATIENT HAD X4 EPISODES OF VOMITING, KEPT NPO AND MEDICATED FOR NAUSEA ORDERED. NO BM TODAY. CONTINUES IN CONTACT ISOLATION FOR C-DIFF. WOUND TREATMENT DONE ORDERED. TURNED AND REPOSITIONED EVERY 2 HOURS AND PRN. DVT PUMPS AND FIRST STEP MATTRESS IN PLACE. NEEDS MET BY STAFF.
[2016-09-28 19:00] VITALS: BP 133/58
--- NOTE | 2016-09-28 19:15 | NUR ---
SPOKE TO DR. EUCEDA. DETAILED REPORT GIVEN OF PATIENT VOMITING EVEN AFTER ZOFRAN GIVEN ORDERED AND UNABLE TO TAKE ANYTHING PO, STATED WILL FOLLOW UP WITH DR. SAMANTHA MAYA.
[2016-09-28] MEDS: IV D5/ 0.9% NACL 1,000 ML IV PRN (20:40)
--- NOTE | 2016-09-28 21:00 | NUR ---
PATIENT AWAKE,ALERT,STILL FEELING NAUSEA EVEN ZOFRAN IV CONTINUE GIVEN,KEPT NPO, HOB ELEVATED, ASPIRATION PRECAUTION,MOUTH CARE GIVEN,NSR ON MONITOR,BP 133/58,ALL EXTREMITIES EDEMATOUS CLOSELY MONITOR URINE OUT PUT.NO SOB,CONT O2 AT 2L/M VIA N/C.
--- NOTE | 2016-09-28 21:05 | NUR ---
blood sugar 134,insulin not given due to patient not eating.
[2016-09-29 01:03] VITALS: BP 147/52
[2016-09-29] MEDS: PIPERACILLIN/TAZOBACTAM/D5W 2.25 G in PREMIXED 1 EACH IV SCH ×4 (01:30→20:47)
[2016-09-29 04:00] VITALS: BP 144/47
--- NOTE | 2016-09-29 05:52 | NUR ---
patient has large loose black tar stool,sent for repeat c-diff,patient remains feeling nausea,with small amount of emesis,greenish color,Zofran iv given.pt. has poor urine out put, will be notified.
[2016-09-29] MEDS: VANCOMYCIN FOR PO/GT/NG USE PO SCH ×4 (06:00→18:27)
[2016-09-29] MEDS: ONDANSETRON 4 MG/2 ML VIAL IV PRN ×2 (06:02→11:50)
[2016-09-29 06:23] LABS: BASOPHILS % (AUTO) 0.1 % (0.0-2.0); EOSINOPHILS # (AUTO) 0.1 K/uL (0.0-0.7); EOSINOPHILS % (AUTO) 0.6 % (0.0-7.0); HEMATOCRIT 24.8 % (37.0-47.0); HEMOGLOBIN 8.1 g/dL (12.0-16.0); LYMPHOCYTES # (AUTO) 0.9 K/uL (0.8-4.8); LYMPHOCYTES % (AUTO) 4.1 % (20.5-51.5); MEAN CORPUSCULAR HEMOGLOBIN 29.7 uug (27.0-31.0); MEAN CORPUSCULAR HGB CONC 33 g/dL (32.0-37.0); MEAN CORPUSCULAR VOLUME 90.7 fL (81.0-99.0); MONOCYTES # (AUTO) 0.8 K/uL (0.1-1.30); MONOCYTES % (AUTO) 3.8 % (0.0-11.0); NEUTROPHILS # (AUTO) 19.4 K/uL (1.8-8.9); NEUTROPHILS % (AUTO) 91.4 % (38.5-71.5); PLATELET COUNT (AUTO) 189 K/uL (150-450); RED BLOOD CELL COUNT(AUTO) 2.73 MIL/uL (4.20-5.40); RED CELL DISTRIBUTION WIDTH 17.2 % (11.5-14.5); WHITE BLOOD COUNT (AUTO) 21.2 K/uL (4.0-11.2)
[2016-09-29] MEDS: METRONIDAZOLE 500 MG/NS 100ML 500 MG in PREMIXED 1 EACH IV SCH ×3 (06:31→20:47)
[2016-09-29] MEDS: BLOOD SUGAR DIAGNOSTIC 1 EACH STRIP VI SCH ×4 (06:31→21:48)
[2016-09-29 07:04] LABS: ALBUMIN 1.9 g/dL (3.4-5.0); BILIRUBIN,TOTAL 0.5 mg/dL (0.2-1.0); CALCIUM 7.4 mg/dL (8.5-10.1); PHOSPHOROUS 2.4 mg/dL (2.5-4.9); POTASSIUM 3.4 mmol/L (3.5-5.1); TOTAL PROTEIN, SERUM 4.2 g/dL (6.4-8.2)
[2016-09-29 07:11] LABS: CREATININE 2.7 mg/dL (0.6-1.3)
--- NOTE | 2016-09-29 07:30 | NUR ---
PATIENT RECEIVED FROM MOVIE PRODUCER. PATIENT ASLEEP INTERMITTENTLY, ABLE TO AROUSE BUT SLEEPY. NO ACUTE DISTRESS NOTED. PATIENT HR 66 CONTROLLED ON TELE MONITOR. RESPIRATIONS EVEN AND UNLABORED, ON 3L/NC. LAUGHLIN CATHETER INTACT, URINE YELLOW AND CLEAR. IV FLUIDS RUNNING. FALL AND SAFETY MEASURES MAINTAINED.
[2016-09-29 07:32] VITALS: BP 129/52
[2016-09-29] MEDS: INSULIN REGULAR, HUMAN 300 UNIT/3 ML VIAL SQ PRN (07:56)
[2016-09-29] MEDS: AMLODIPINE 10 MG TABLET PO SCH (09:00)
[2016-09-29] MEDS: CHOLECALCIFEROL 1,000 UNIT TABLET PO SCH (09:00)
[2016-09-29] MEDS: PANTOPRAZOLE SODIUM 40 MG VIAL IV SCH ×2 (10:14→20:46)
[2016-09-29 11:27] VITALS: BP 132/48
[2016-09-29] MEDS: PROPAFENONE HCL 150 MG TABLET PO SCH ×2 (12:16→18:24)
[2016-09-29] MEDS: METOPROLOL SUCCINATE XL 50 MG TAB.SR.24H PO SCH (12:16)
[2016-09-29] MEDS: Z GUARD REMEDY PASTE 57 GM TUBE TOP SCH ×2 (12:17→20:48)
[2016-09-29] MEDS ORDERED: NEUTRA PHOS PACKET PO ONE (13:45)
--- NOTE | 2016-09-29 14:36 | NUR ---
PATIENT HAS NO EPISODES OF EMESIS AT THIS TIME. ABLE TO TOLERATE SMALL PORTIONS OF JELLO AND FLUIDS. NO COMPLAINTS OF PAIN, WILL CONTINUE TO MONITOR.
[2016-09-29 15:09] VITALS: BP 133/48
[2016-09-29] MEDS ORDERED: RIVAROXABAN 15 MG TABLET PO SCH (18:00)
--- NOTE | 2016-09-29 18:41 | NUR ---
END OF SHIFT: NO EPISODES OF VOMITING DURING SHIFT, DENIES NAUSEA AT THIS TIME. NO COMPLAINTS OF PAIN, VS STABLE. AAOx4, HR 60s ON TELE MONITOR, O2 3L/NC. PATIENT CONTINUES WITH DIARRHEA x4, LOOSE STOOLS. CONTACT ISOLATION MAINTAINED. LAUGHLIN CATHETER IN PLACE. TREATMENT TO SACRUM AND RIGHT BUTTOCKS ORDERED, MEPILEX IN PLACE. IV TO LEFT UPPER ARM, IVF RUNNING, NO REDNESS OR SWELLING, INTACT. TURNED AND REPOSITIONED Q2H PRN. HEELS ELEVATED ON PILLOWS DVT PUMPS AND 1ST STEP MATTRESS IN PLACE. SAFETY MEASURES MAINTAINED.
[2016-09-29 19:00] VITALS: BP 137/50
[2016-09-29] MEDS: IV D5/ 0.9% NACL 1,000 ML IV PRN (19:08)
[2016-09-30] VITALS: BP 121/44
--- NOTE | 2016-09-30 | NUR ---
SHIFT NOTE: 2000: PT AWAKE AND AAOX4, GOOD ROM,TRIES TO HELP IN POSITION CHANGE. V/SS AFEBRILE, NSR ON MONITOR DENIES ANY PAIN OR DISCOMFORT. CLEAR DIET, FALL AND ASPIRATION PRECAUTION. HAD ONE BM AT 2300. ON CONTACT ISOLATION FOR C.DIFF. STOOL COLOR GREEN/LOOSE STOOL. HAS STAGE 2 OH. ULCER ON SACRAL AREA. PM CARE,JOCELIN CARE, BACK AND SKIN CARE DONE. NEW MEPILEX DRESSING APPLIED. LAUGHLIN CARE DONE. 4+ EDEMA ON UPPER EXT. RIGHT > LEFT. NO SKIN BREAKDOWN NOTED ON EXT. ARMS ELEVATED ON PILLOWS. SCDs ON. NO ACUTE DISTRESS,CONTINUE TO MONITOR.
[2016-09-30] MEDS: VANCOMYCIN FOR PO/GT/NG USE PO SCH ×5 (00:39→23:40)
[2016-09-30] MEDS: PIPERACILLIN/TAZOBACTAM/D5W 2.25 G in PREMIXED 1 EACH IV SCH ×4 (01:14→20:36)
[2016-09-30 04:00] VITALS: BP 120/45
[2016-09-30] MEDS: METRONIDAZOLE 500 MG/NS 100ML 500 MG in PREMIXED 1 EACH IV SCH ×3 (06:32→22:16)
--- NOTE | 2016-09-30 06:42 | NUR ---
No changes. had uneventful night. no acute distress.
[2016-09-30 06:50] LABS: ALBUMIN 1.6 g/dL (3.4-5.0); BILIRUBIN,TOTAL 0.5 mg/dL (0.2-1.0); CALCIUM 7.1 mg/dL (8.5-10.1); MAGNESIUM 1.8 mg/dL (1.8-2.4); PHOSPHOROUS 3.5 mg/dL (2.5-4.9); POTASSIUM 3.6 mmol/L (3.5-5.1); TOTAL PROTEIN, SERUM 3.9 g/dL (6.4-8.2)
[2016-09-30 06:55] LABS: CREATININE 3.1 mg/dL (0.6-1.3)
[2016-09-30 07:29] VITALS: BP 114/45
[2016-09-30] MEDS: BLOOD SUGAR DIAGNOSTIC 1 EACH STRIP VI SCH ×4 (07:38→22:30)
[2016-09-30] MEDS: PANTOPRAZOLE SODIUM 40 MG VIAL IV SCH ×2 (08:01→20:36)
[2016-09-30] MEDS: CHOLECALCIFEROL 1,000 UNIT TABLET PO SCH (08:01)
[2016-09-30] MEDS: PROPAFENONE HCL 150 MG TABLET PO SCH ×2 (08:02→16:33)
[2016-09-30] MEDS: AMLODIPINE 10 MG TABLET PO SCH (08:02)
[2016-09-30] MEDS: METOPROLOL SUCCINATE XL 50 MG TAB.SR.24H PO SCH (08:02)
[2016-09-30] MEDS: Z GUARD REMEDY PASTE 57 GM TUBE TOP SCH ×2 (08:03→20:36)
[2016-09-30 09:03] LABS: BASOPHILS % (AUTO) 0.1 % (0.0-2.0); EOSINOPHILS # (AUTO) 0.2 K/uL (0.0-0.7); EOSINOPHILS % (AUTO) 1.4 % (0.0-7.0); HEMATOCRIT 24.5 % (37.0-47.0); HEMOGLOBIN 8.2 g/dL (12.0-16.0); LYMPHOCYTES # (AUTO) 0.8 K/uL (0.8-4.8); LYMPHOCYTES % (AUTO) 6.1 % (20.5-51.5); MEAN CORPUSCULAR HEMOGLOBIN 30.3 uug (27.0-31.0); MEAN CORPUSCULAR HGB CONC 34 g/dL (32.0-37.0); MEAN CORPUSCULAR VOLUME 90.3 fL (81.0-99.0); MONOCYTES # (AUTO) 0.8 K/uL (0.1-1.30); MONOCYTES % (AUTO) 5.8 % (0.0-11.0); NEUTROPHILS # (AUTO) 11.5 K/uL (1.8-8.9); NEUTROPHILS % (AUTO) 86.6 % (38.5-71.5); PLATELET COUNT (AUTO) 161 K/uL (150-450); RED BLOOD CELL COUNT(AUTO) 2.72 MIL/uL (4.20-5.40); RED CELL DISTRIBUTION WIDTH 17.2 % (11.5-14.5); WHITE BLOOD COUNT (AUTO) 13.3 K/uL (4.0-11.2)
--- NOTE | 2016-09-30 09:20 | NUR ---
Dr. Levy called to be informed of cross contamination results informed to him by charge operator. Awaiting call back. Patient redrawn. Addendum: 09/30/16 at 1430 by GRICEL ROBLERO RN and called to be informed of new results.
[2016-09-30 11:34] LABS: ANISOCYTOSIS 1+; EOSINOPHILS % (MANUAL) 3 % (0-8); LYMPHOCYTES % (MANUAL) 7 % (20-40); MONOCYTES % (MANUAL) 8 % (2-10); NEUTROPHILS % (MANUAL) 82 % (42-75); OVALOCYTES 1+; PLATELET ESTIMATE ADEQUATE
[2016-09-30 11:35] LABS: HYPOCHROMASIA 1+
[2016-09-30 11:37] LABS: TARGET CELLS 1+
[2016-09-30 11:43] VITALS: BP 117/54
[2016-09-30] MEDS: IV D5/ 0.9% NACL 1,000 ML IV PRN (12:16)
--- NOTE | 2016-09-30 14:23 | NUR ---
Dr. Carmona in the room and at this time she updated pt's of current condition including DNR status. As stated by pt's he will bring a copy of legal Advanced Directives.
--- NOTE | 2016-09-30 14:26 | NUR ---
Patient seen by ID. services.
[2016-09-30 15:06] VITALS: BP 108/50
--- NOTE | 2016-09-30 15:30 | NUR ---
A call back from Dr. Levy and informed of repeat HBG and HCt. results. No transfusion needed at this time as ordered.
[2016-09-30] MEDS ORDERED: RIVAROXABAN 15 MG TABLET PO SCH (18:00)
[2016-09-30 19:00] VITALS: BP 123/43
[2016-09-30] MEDS: MORPHINE SULFATE 2 MG/1 ML DISP.SYRIN IV PRN (20:33)
--- NOTE | 2016-09-30 22:00 | NUR ---
Patient in bed awake & alert no SOB denies chest pain, generalized edema noted. Complaining of back pain. 1st step mattress in use. Turned & repositioned. medicated w/ Morphine IVP. Effective result noted. Sinus oliver on the monitor.
[2016-10-01] VITALS (19 sets, daily range): BP systolic 104–131; BP diastolic 42–65
[2016-10-01] MEDS: PIPERACILLIN/TAZOBACTAM/D5W 2.25 G in PREMIXED 1 EACH IV SCH ×4 (00:31→20:50)
[2016-10-01] MEDS: METRONIDAZOLE 500 MG/NS 100ML 500 MG in PREMIXED 1 EACH IV SCH ×3 (05:21→22:25)
[2016-10-01] MEDS: VANCOMYCIN FOR PO/GT/NG USE PO SCH ×3 (05:21→18:13)
[2016-10-01] MEDS: MORPHINE SULFATE 2 MG/1 ML DISP.SYRIN IV PRN ×3 (05:48→23:04)
[2016-10-01] MEDS: IV D5/ 0.9% NACL 1,000 ML IV PRN (05:53)
[2016-10-01] MEDS: BLOOD SUGAR DIAGNOSTIC 1 EACH STRIP VI SCH ×4 (06:03→22:23)
[2016-10-01 06:18] LABS: BASOPHILS % (AUTO) 0.1 % (0.0-2.0); EOSINOPHILS # (AUTO) 0.1 K/uL (0.0-0.7); HEMATOCRIT 22.7 % (37.0-47.0); LYMPHOCYTES # (AUTO) 0.7 K/uL (0.8-4.8); LYMPHOCYTES % (AUTO) 6.8 % (20.5-51.5); MEAN CORPUSCULAR HEMOGLOBIN 29.2 uug (27.0-31.0); MEAN CORPUSCULAR HGB CONC 32 g/dL (32.0-37.0); MEAN CORPUSCULAR VOLUME 90.6 fL (81.0-99.0); MONOCYTES # (AUTO) 0.5 K/uL (0.1-1.30); MONOCYTES % (AUTO) 5.1 % (0.0-11.0); NEUTROPHILS # (AUTO) 9.2 K/uL (1.8-8.9); PLATELET COUNT (AUTO) 129 K/uL (150-450); RED CELL DISTRIBUTION WIDTH 17.7 % (11.5-14.5); WHITE BLOOD COUNT (AUTO) 10.5 K/uL (4.0-11.2)
[2016-10-01 06:23] LABS: HEMOGLOBIN 7.3 g/dL (12.0-16.0)
--- NOTE | 2016-10-01 06:49 | NUR ---
Patient's today H/H is 7.3 & 22.7. Epic show operations supervisor MD notified. Repeat CBC was ordered. Edger Operator current in patient's room. Blood specimen to be drawn peripherally. Vital signs are WNL.
[2016-10-01 07:20] LABS: BILIRUBIN,TOTAL 0.4 mg/dL (0.2-1.0); CALCIUM 7.3 mg/dL (8.5-10.1); MAGNESIUM 1.7 mg/dL (1.8-2.4); PHOSPHOROUS 4.1 mg/dL (2.5-4.9); POTASSIUM 3.3 mmol/L (3.5-5.1); TOTAL PROTEIN, SERUM 3.8 g/dL (6.4-8.2)
[2016-10-01 07:37] LABS: CREATININE 3.6 mg/dL (0.6-1.3)
[2016-10-01 07:39] LABS: ALBUMIN 1.5 g/dL (3.4-5.0)
--- NOTE | 2016-10-01 08:00 | NUR ---
SPOKE WITH REGARDING LOW MAGNISIUM,LOW H/H.NEW ORDERS RECEIVED.
[2016-10-01] MEDS ORDERED: MAGNESIUM SULFATE/D5W 100 ML IV SCH (09:00)
[2016-10-01 10:06] LABS: BAND % (MANUAL) 1 % (0-10); EOSINOPHILS % (MANUAL) 1 % (0-8); LYMPHOCYTES % (MANUAL) 7 % (20-40); MONOCYTES % (MANUAL) 5 % (2-10); NEUTROPHILS % (MANUAL) 86 % (42-75)
[2016-10-01 10:07] LABS: ANISOCYTOSIS 1+; HYPOCHROMASIA 1+; OVALOCYTES 1+; PLATELET ESTIMATE ADEQUATE
[2016-10-01 10:08] LABS: TARGET CELLS 1+
[2016-10-01] MEDS: POTASSIUM CHLORIDE 50 ML IV SCH ×2 (11:18→12:31)
[2016-10-01] MEDS: METOPROLOL SUCCINATE XL 50 MG TAB.SR.24H PO SCH (11:22)
[2016-10-01] MEDS: AMLODIPINE 10 MG TABLET PO SCH (11:22)
[2016-10-01] MEDS: CHOLECALCIFEROL 1,000 UNIT TABLET PO SCH (11:22)
[2016-10-01] MEDS: PANTOPRAZOLE SODIUM 40 MG VIAL IV SCH ×2 (11:22→20:45)
[2016-10-01] MEDS: PROPAFENONE HCL 150 MG TABLET PO SCH ×2 (11:23→18:12)
[2016-10-01] MEDS: Z GUARD REMEDY PASTE 57 GM TUBE TOP SCH ×2 (11:23→20:45)
--- NOTE | 2016-10-01 16:00 | NUR ---
pT REMAINS AWAKE,ALERT.1 UNIT OF BLOOD WAS TRANSFUSED.PT TOLERATED WELL.NO SOB NOTED.WILL CONTINUE TO MONITOR.
--- NOTE | 2016-10-01 16:30 | NUR ---
2ND UNIT OF PRBC STARTED.WILL CONTINUE TO MONITOR.
--- NOTE | 2016-10-01 20:00 | NUR ---
2 nd unit of prbc going on, patient tolerated well, vital signs remains stable. patient c/o can not breath,o2 sat 96% on o2 3l/n,urine out put in last 12 hour was [address] Levy was notified,orders Lasix 40 mg iv.
[2016-10-01] MEDS ORDERED: FUROSEMIDE 40 MG/4 ML VIAL IV ONE (20:15)
[2016-10-01] MEDS: INSULIN REGULAR, HUMAN 300 UNIT/3 ML VIAL SQ PRN (22:24)
[2016-10-02] VITALS (26 sets, daily range): BP systolic 90–153; BP diastolic 41–95
[2016-10-02] MEDS: VANCOMYCIN FOR PO/GT/NG USE PO SCH ×4 (00:45→17:04)
[2016-10-02] MEDS: PIPERACILLIN/TAZOBACTAM/D5W 2.25 G in PREMIXED 1 EACH IV SCH ×4 (02:10→19:14)
[2016-10-02] MEDS: MORPHINE SULFATE 2 MG/1 ML DISP.SYRIN IV PRN ×2 (02:39→08:59)
[2016-10-02] MEDS: METRONIDAZOLE 500 MG/NS 100ML 500 MG in PREMIXED 1 EACH IV SCH ×3 (05:41→21:40)
--- NOTE | 2016-10-02 06:00 | NUR ---
PATIENT TURN AND REPOSITION,SR/SB ON TELE MONITOR,ALERT,ORIENTED,LOW URINE OUT PUT/SHIFT.
--- NOTE | 2016-10-02 07:30 | NUR ---
SBAR REPORT REC.PT.IN BED A/A/OX2,DENIES ANY PAIN @ TIME,NO S/S OF DISTRESS.
[2016-10-02] MEDS: BLOOD SUGAR DIAGNOSTIC 1 EACH STRIP VI SCH ×4 (07:43→21:39)
[2016-10-02 07:54] LABS: BASOPHILS % (AUTO) 0.1 % (0.0-2.0); EOSINOPHILS # (AUTO) 0.1 K/uL (0.0-0.7); HEMATOCRIT 33.3 % (37.0-47.0); HEMOGLOBIN 11.3 g/dL (12.0-16.0); LYMPHOCYTES # (AUTO) 0.7 K/uL (0.8-4.8); LYMPHOCYTES % (AUTO) 4.6 % (20.5-51.5); MEAN CORPUSCULAR HEMOGLOBIN 30.1 uug (27.0-31.0); MEAN CORPUSCULAR HGB CONC 34 g/dL (32.0-37.0); MEAN CORPUSCULAR VOLUME 89.2 fL (81.0-99.0); MONOCYTES # (AUTO) 0.6 K/uL (0.1-1.30); NEUTROPHILS # (AUTO) 12.8 K/uL (1.8-8.9); NEUTROPHILS % (AUTO) 90.3 % (38.5-71.5); PLATELET COUNT (AUTO) 122 K/uL (150-450); RED BLOOD CELL COUNT(AUTO) 3.73 MIL/uL (4.20-5.40); RED CELL DISTRIBUTION WIDTH 17.3 % (11.5-14.5); WHITE BLOOD COUNT (AUTO) 14.2 K/uL (4.0-11.2)
[2016-10-02 08:17] LABS: ALBUMIN 1.6 g/dL (3.4-5.0); BILIRUBIN,TOTAL 0.8 mg/dL (0.2-1.0); CALCIUM 7.5 mg/dL (8.5-10.1); MAGNESIUM 1.9 mg/dL (1.8-2.4); PHOSPHOROUS 4.7 mg/dL (2.5-4.9); POTASSIUM 3.3 mmol/L (3.5-5.1); TOTAL PROTEIN, SERUM 4.2 g/dL (6.4-8.2)
[2016-10-02 08:30] LABS: CREATININE 3.9 mg/dL (0.6-1.3)
[2016-10-02] MEDS: CHOLECALCIFEROL 1,000 UNIT TABLET PO SCH (08:30)
[2016-10-02] MEDS: ONDANSETRON 4 MG/2 ML VIAL IV PRN (08:30)
[2016-10-02] MEDS: PANTOPRAZOLE SODIUM 40 MG VIAL IV SCH ×2 (08:30→19:16)
[2016-10-02] MEDS: PROPAFENONE HCL 150 MG TABLET PO SCH ×2 (08:30→17:00)
[2016-10-02] MEDS: METOPROLOL SUCCINATE XL 50 MG TAB.SR.24H PO SCH (08:31)
[2016-10-02] MEDS: AMLODIPINE 10 MG TABLET PO SCH (08:31)
[2016-10-02] MEDS: Z GUARD REMEDY PASTE 57 GM TUBE TOP SCH ×2 (08:32→21:39)
--- NOTE | 2016-10-02 10:00 | NUR ---
PT.WAS SEEN BY WITH NEW ORDERS.
[2016-10-02] MEDS: POTASSIUM CHLORIDE 50 ML IV SCH ×3 (10:22→22:52)
[2016-10-02] MEDS ORDERED: SODIUM BICARBONATE 8.4% 50 MEQ/50 ML DISP.SYRIN IV ONE ×3 (11:12→22:21)
[2016-10-02] MEDS ORDERED: CALCIUM CHLORIDE 1 GM/10 ML DISP.SYRIN IV ONE (11:12)
[2016-10-02] MEDS ORDERED: IV NORMAL SALINE 1000 ML BAG IV ONE (11:13)
[2016-10-02] MEDS: INSULIN REGULAR, HUMAN 300 UNIT/3 ML VIAL SQ PRN (11:41)
--- NOTE | 2016-10-02 12:09 | NUR ---
08:32 Spoke to the patient's step-son, Cas Arboleda [[phone]; [phone]], about the patient's Code Status. He is aware that she is currently Full Code because her verbalized that he wants her to be Full Code. Informed him that we can not change the Code Status unless we have her signed Advanced Directives. He understood and he will be calling the patient's caregiver, Clover, to see if she can help locate the signed Advanced Directives. He will also try to call her PCP to see if they have it in file. CM/SW will follow-up.
--- NOTE | 2016-10-02 15:10 | NUR ---
FAMILY AT BEDSIDE UPDATED WITH PT.CONDITION.
--- NOTE | 2016-10-02 15:15 | NUR ---
PT.WATCHING TV ,NO S/S OF DISTRESS OR PAIN NOTED.
--- NOTE | 2016-10-02 16:25 | NUR ---
PT.WATCHING TV ,NO S/S OF DISTRESS OR PAIN NOTED.
[2016-10-02] MEDS ORDERED: ETOMIDATE 20 MG/10 ML VIAL IV ONE (18:00)
--- NOTE | 2016-10-02 18:03 | NUR ---
ON FREELANCE RECRUITER NOTED THAT PT WENT TO BRADYCARDIA RATE OF 31/PT UNRESPONSIVE ,NO PALPABLE PULSE,CPR STARTED WITH AMBU BAGIN THE PT.CODE BLUE WAS CALL.[SEE CODE BLUE RECORD]
--- NOTE | 2016-10-02 18:05 | NUR ---
Gertrudis blue called to pt room 212.. Upon arrival with Richard CHAPMAN and ER , pt laying supine, with back board, chest compressions by Antron C.N.A, and rescue breathing with 15 Lpm via BVM by Skyler MART.. CPR stopped and checking for pulses corotid by Rod CHAPMAN and femoral by ER , pulse present, weak and oliver.. Very little spontaneous movement noticed, visible effort to breath by pt, shallow breathing, continued to assist pt breathing with BVM.. Pt intubated in rm 212 with ETT 7.5 by .. Good color change to CO2 detector, good breath sounds bilaterally.. ETT temporarily secured 22 at the lip with tape.. Pt immediately transferred to CCU by Hans MART, Jamee KAYN, Rod CHAPMAN and .. With pt on cardiac cath lab radiology technologist, and O2 from E-cylinder with BVM via ETT.. In CCU ETT secured with [place] Fast.. Vent: Marlow with settings: A/C 20, Vt 550, FiO2 100% placed on pt by Richard CHAPMAN see charting.. Post intubation xray ordered to confirm placement, transfer of care and report given to PM RT shift..
--- NOTE | 2016-10-02 18:30 | NUR ---
transferred from 212 [facility] patient post code blue for severe bradycardi, unresponsiveness and hypotension. dr Cotton in attendance. report received from Jocelyn MART. PLaced on external pacer. while waiting for vasopressors. place on dopamine drip and levophed drip.
--- NOTE | 2016-10-02 18:30 | NUR ---
PT.WAS TRANSFER TO CCU#2. AND FAMILY NOTIFIED.
--- NOTE | 2016-10-02 19:14 | NUR ---
Pt received orally intubated with a 7.5 ETT, secured at 22 cm at the lip with [place] Fast. Pt on Marlow vent with settings of AC 20, VT 550, FiO2 100%, SpO2 100% at this time. Post intubation ABG to be done @ 1930. Suctioned and lavaged pt with moderate amount of pale-whitish secretions. Ambu-bag at bedside. Vent alarms are set, functioning and audible. Will continue to monitor pt throughout shift.
[2016-10-02] MEDS: NOREPINEPHRINE BITARTRATE 16 MG in IV DEXTROSE 5% 500 ML IV PRN (19:19)
--- NOTE | 2016-10-02 19:23 | NUR ---
report given to Luis
[2016-10-02] MEDS: DOPamine IV DRIP 800 MG in IV DEXTROSE 5% 250 ML IV PRN (19:35)
[2016-10-02 19:47] LABS: ABG BASE EXCESS -13.7 mmol/L; ABG HCO3 11.6 mmol/L; ABG PCO2 25.7 mmHg (35.0-45.0); ABG PH 7.271 (7.350-7.450); ABG SITE RIGHT RADIAL; ABG TOTAL HEMOGLOBIN 11.2 G/dL (12.0-16.0); COHb 0.7 % (0.5-1.5); MetHb 0.3 % (0.0-1.5); O2Hb 98.2 % (94.0-97.0); VENT MODE VENT - A/C; VT, ABG 550 mL
--- NOTE | 2016-10-02 20:00 | NUR ---
Titrated FiO2 to 70% at this time, per ABG results. BRITTNY Storm notified and aware. Saturation is 100%. Post intubation ABG results reported to BRITTNY Storm, results crossed over to and can be viewed on [employer].
--- NOTE | 2016-10-02 20:00 | NUR ---
S/P Code Blue for symptomatic oliver. Intubated, on vent. Comfortable on current vent settings. External pacemaker intact, pacing well. On low dose Dopamine and Levophed. Completed NS liter bolus. Was restless, attempting to pull out ETT thus required bilateral mittens, circ checks adequate. Seen and evaluated by Joel Oconnor.
--- NOTE | 2016-10-02 20:30 | NUR ---
Family called in for update, appreciative of care and info.
[2016-10-02 21:40] LABS: BASOPHILS # (AUTO) 0.1 K/uL (0.0-0.2); BASOPHILS % (AUTO) 0.5 % (0.0-2.0); EOSINOPHILS % (AUTO) 0.2 % (0.0-7.0); HEMATOCRIT 34.4 % (37.0-47.0); HEMOGLOBIN 11.5 g/dL (12.0-16.0); LYMPHOCYTES # (AUTO) 0.4 K/uL (0.8-4.8); LYMPHOCYTES % (AUTO) 2.1 % (20.5-51.5); MEAN CORPUSCULAR HEMOGLOBIN 29.5 uug (27.0-31.0); MEAN CORPUSCULAR HGB CONC 33 g/dL (32.0-37.0); MEAN CORPUSCULAR VOLUME 88.4 fL (81.0-99.0); MONOCYTES # (AUTO) 0.1 K/uL (0.1-1.30); MONOCYTES % (AUTO) 0.3 % (0.0-11.0); NEUTROPHILS # (AUTO) 19.8 K/uL (1.8-8.9); NEUTROPHILS % (AUTO) 96.9 % (38.5-71.5); PLATELET COUNT (AUTO) 110 K/uL (150-450); RED BLOOD CELL COUNT(AUTO) 3.89 MIL/uL (4.20-5.40); RED CELL DISTRIBUTION WIDTH 17.4 % (11.5-14.5); WHITE BLOOD COUNT (AUTO) 20.4 K/uL (4.0-11.2)
--- NOTE | 2016-10-02 21:45 | NUR ---
Dr. Lee (call center director for Dr. Arvizu) called for pulmonary consult. ABG results reported, new orders received and carried out. Bicarb IVP 100 mEq given and placed on Bicarb drip.
[2016-10-02 21:47] LABS: CALCIUM 8.6 mg/dL (8.5-10.1); POTASSIUM 3.4 mmol/L (3.5-5.1)
[2016-10-02 21:51] LABS: CREATININE 4.2 mg/dL (0.6-1.3)
[2016-10-02 22:27] LABS: BAND % (MANUAL) 12 % (0-10); LYMPHOCYTES % (MANUAL) 1 % (20-40); MONOCYTES % (MANUAL) 2 % (2-10); NEUTROPHILS % (MANUAL) 85 % (42-75)
[2016-10-02 22:28] LABS: ANISOCYTOSIS 1+; OVALOCYTES FEW; PLATELET ESTIMATE SLIGHT DECREASED
--- NOTE | 2016-10-02 22:30 | NUR ---
Dr. Jay called for post code blue lab values; condition report given and new orders received. requested cardiology consult be called.
[2016-10-02] MEDS: SODIUM BICARBONATE 8.4% 100 MEQ in IV D5W 1000ML 1,000 ML IV PRN (22:49)
--- NOTE | 2016-10-02 23:00 | NUR ---
Dr. Light's exchange called for cardiology consult. Spoke to MD about pt condition and events that led to CCU transfer.
--- NOTE | 2016-10-02 23:45 | NUR ---
EKGs and rhythm strips sent to Dr. Light via text. plans to insert temporary transvenous pacer at bedside.
[2016-10-03] VITALS (37 sets, daily range): BP systolic 71–158; BP diastolic 38–88
--- NOTE | 2016-10-03 00:01 | NUR ---
Spoke with on phone for pacer insertion consent, witnessed by TRACIERIlir Londono. Dr. Light here and also spoke with Mr. Carson. Consented to said procedure.
[2016-10-03] MEDS: POTASSIUM CHLORIDE 50 ML IV SCH (00:17)
[2016-10-03] MEDS ORDERED: MIDAZOLAM HCL 2 MG/2 ML VIAL ONE ×2 (00:28→13:30)
[2016-10-03] MEDS ORDERED: MIDAZOLAM HCL 2 MG/2 ML VIAL IV PRN (00:30)
[2016-10-03] MEDS: PIPERACILLIN/TAZOBACTAM/D5W 2.25 G in PREMIXED 1 EACH IV SCH ×4 (02:00→19:01)
--- NOTE | 2016-10-03 02:00 | NUR ---
Successful insertion of transvenous pacer by Dr. Light at bedside. External pacer pads removed. Vasoactive drips weaned off and pt monitored closely.
--- NOTE | 2016-10-03 05:00 | NUR ---
Total bath/skin care rendered, procedure fairly tolerated well. Pt has wakeful moments, reaching for ETT; next time around is lethargic. Mittens maintained, circulation checks adequate. Rhythm Sinus oliver above 40. BP stable off vasoactive drips. Please see CCU flowsheet for trends and clinical data.
[2016-10-03 05:23] LABS: BASOPHILS % (AUTO) 0.1 % (0.0-2.0); EOSINOPHILS % (AUTO) 0.1 % (0.0-7.0); HEMATOCRIT 31.3 % (37.0-47.0); HEMOGLOBIN 10.5 g/dL (12.0-16.0); LYMPHOCYTES # (AUTO) 0.4 K/uL (0.8-4.8); MEAN CORPUSCULAR HEMOGLOBIN 29.9 uug (27.0-31.0); MEAN CORPUSCULAR HGB CONC 34 g/dL (32.0-37.0); MONOCYTES # (AUTO) 0.3 K/uL (0.1-1.30); MONOCYTES % (AUTO) 1.7 % (0.0-11.0); NEUTROPHILS # (AUTO) 19.4 K/uL (1.8-8.9); NEUTROPHILS % (AUTO) 96.1 % (38.5-71.5); PLATELET COUNT (AUTO) 72 K/uL (150-450); RED BLOOD CELL COUNT(AUTO) 3.51 MIL/uL (4.20-5.40); RED CELL DISTRIBUTION WIDTH 17.2 % (11.5-14.5); WHITE BLOOD COUNT (AUTO) 20.1 K/uL (4.0-11.2)
[2016-10-03 05:37] LABS: BILIRUBIN,TOTAL 0.6 mg/dL (0.2-1.0); CALCIUM 8.2 mg/dL (8.5-10.1); MAGNESIUM 1.8 mg/dL (1.8-2.4); PHOSPHOROUS 4.1 mg/dL (2.5-4.9); POTASSIUM 3.7 mmol/L (3.5-5.1); TOTAL PROTEIN, SERUM 3.7 g/dL (6.4-8.2)
[2016-10-03 05:38] LABS: CREATININE 4.1 mg/dL (0.6-1.3)
[2016-10-03 05:39] LABS: ALBUMIN 1.4 g/dL (3.4-5.0)
[2016-10-03 05:46] LABS: BAND % (MANUAL) 3 % (0-10); LYMPHOCYTES % (MANUAL) 5 % (20-40); MONOCYTES % (MANUAL) 6 % (2-10); NEUTROPHILS % (MANUAL) 85 % (42-75)
[2016-10-03 05:49] LABS: PLATELET ESTIMATE DECRE
[2016-10-03 05:50] LABS: ANISOCYTOSIS 1+
[2016-10-03] MEDS: VANCOMYCIN FOR PO/GT/NG USE PO SCH ×5 (06:00→23:18)
[2016-10-03] MEDS: METRONIDAZOLE 500 MG/NS 100ML 500 MG in PREMIXED 1 EACH IV SCH ×3 (06:07→21:23)
--- NOTE | 2016-10-03 07:15 | NUR ---
report received from Bailee. Patient 86 yr old female who was admitted on 09/23/16 for abd pain to [facility] , transferred to CCU post code blue on 10/02/16. Patient is awake, orally intubated. tv 550, ac 20 fio2 60%. has a transvenous pacer set at 40 ma 5 sensitivity 1. patient own rhythm is atrial fib rate 45/min. off pressors since 2am. main has no urine output. is receiving nahco3 drip at 75ml/hr. is hypothermic t 89/f. warming blanket applied. Addendum: 10/03/16 at 1054 by KEON BENITEZ RN Amended: Links added.
[2016-10-03] MEDS: CHOLECALCIFEROL 1,000 UNIT TABLET PO SCH (09:00)
[2016-10-03] MEDS: PROPAFENONE HCL 150 MG TABLET PO SCH ×2 (09:00→17:00)
[2016-10-03] MEDS: AMLODIPINE 10 MG TABLET PO SCH (09:00)
--- NOTE | 2016-10-03 09:00 | NUR ---
all po meds held . patient is intubated. will ask physician for ngt placement Addendum: 10/03/16 at 1643 by KEON BENITEZ RN Amended: Links added. Addendum: 10/03/16 at 1648 by KEON BENITEZ RN Amended: Links added. Addendum: 10/03/16 at 1649 by KEON BENITEZ RN Amended: Links added.
[2016-10-03] MEDS: PANTOPRAZOLE SODIUM 40 MG VIAL IV SCH ×2 (09:39→21:23)
[2016-10-03] MEDS: Z GUARD REMEDY PASTE 57 GM TUBE TOP SCH ×2 (09:39→21:25)
--- NOTE | 2016-10-03 09:50 | NUR ---
2 units humulin R given sq for bs 141, sliding scale changed to q6hrs. patient intubated and not eating. Addendum: 10/03/16 at 1648 by KEON BENITEZ RN Amended: Links added. Addendum: 10/03/16 at 1649 by KEON BENITEZ RN Amended: Links added.
[2016-10-03] MEDS: BLOOD SUGAR DIAGNOSTIC 1 EACH STRIP VI SCH ×4 (09:51→23:28)
[2016-10-03] MEDS: INSULIN REGULAR, HUMAN 300 UNIT/3 ML VIAL SQ PRN ×2 (09:55→12:16)
--- NOTE | 2016-10-03 11:30 | NUR ---
seen by dr gray. condition update given Addendum: 10/03/16 at 1525 by KEON BENITEZ RN Amended: Hermelinda gutiérrez. Addendum: 10/03/16 at 1526 by KEON BENITEZ RN Amended: Hermelinda gutiérrez.
--- NOTE | 2016-10-03 11:35 | NUR ---
PT RECEIVED ON ESPARZA VENT, CURRENT SETTINGS ARE AC 20, Vt 550, 35% FIO2. 7.5 ETT IS PATENT AND SECURED WITH ETT CARMONA AT APPROX 22CM AT THE LIP. DOING WELL ON CURRENT VENT SETTINGS WITH NO SOB NOTED. HAS MINIMAL AMOUNT OF SECRETIONS. BVM AT BEDSIDE. ALARMS ARE ON AND AUDIBLE. WILL CONTINUE TO MONITOR.
[2016-10-03] MEDS ORDERED: EPHEDRINE SULFATE 50 MG/ML AMPUL MC ONE (11:42)
[2016-10-03] MEDS ORDERED: IRR NORMAL SALINE IRRIGATION 1,000 ML BOTTLE IR ONE (11:42)
[2016-10-03] MEDS ORDERED: IV NORMAL SALINE 1000 ML BAG IV ONE (11:43)
--- NOTE | 2016-10-03 12:00 | NUR ---
seen by dr paulino. orders received Addendum: 10/03/16 at 1526 by KEON BENITEZ RN Amended: Links added.
--- NOTE | 2016-10-03 12:10 | NUR ---
2 units humulin R given sq for bs 134 Addendum: 10/03/16 at 1649 by KEON BENITEZ RN Amended: Links added.
[2016-10-03] MEDS ORDERED: BACITRACIN 50,000 UNITS VIAL ONE (12:53)
[2016-10-03] MEDS ORDERED: LIDOCAINE HCL 1% 20 ML VIAL ONE (12:53)
[2016-10-03] MEDS ORDERED: IOPAMIDOL 15 ML VIAL IT ONE (12:54)
--- NOTE | 2016-10-03 13:20 | NUR ---
to or for insertion of permanent pacer by Dr Dang Addendum: 10/03/16 at 1338 by KEON BENITEZ RN Amended: Links added.
[2016-10-03] MEDS: ALBUMIN HUMAN 25% 25 GM in PREMIXED 1 EACH IV SCH ×3 (13:25→23:22)
[2016-10-03] MEDS ORDERED: FENTANYL CITRATE 100 MCG/2 ML AMPUL ONE (13:30)
--- NOTE | 2016-10-03 13:50 | NUR ---
seen by dr bass. orders received. Addendum: 10/03/16 at 1641 by KEON BENITEZ RN Amended: Links added. Addendum: 10/03/16 at 1643 by KEON BENITEZ RN Amended: Hermelinda added. Addendum: 10/03/16 at 1648 by KEON BENITEZ RN Amended: Hermelinda added. Addendum: 10/03/16 at 1649 by KEON BENITEZ RN Amended: Hermelinda added.
[2016-10-03] MEDS ORDERED: BUMETANIDE INJ 8 MG in IV DEXTROSE 5% 48 ML IV ONE (14:30)
--- NOTE | 2016-10-03 16:30 | NUR ---
report received from Diana TAIL PULLER, patient is post permanent pacer insertion with the following setting ST Radha/ DDD 70/MIN. Patient is awake and responsive, Anesthesiologist reported unable to insert ngt secondary to bleeding. recovery phase times 1 hr per TAIL PULLER. sodium bicarb drip infusing at 75ml/hr. Bumex drip started . remains anuric. Cherry sump tube inserted orally. auscultated by 2 RNS and kub was ordered to confirm ogt placement Addendum: 10/03/16 at 1639 by KEON BENITEZ RN Amended: Links added.
[2016-10-03] MEDS: SODIUM BICARBONATE 8.4% 100 MEQ in IV D5W 1000ML 1,000 ML IV PRN (16:52)
--- NOTE | 2016-10-03 17:45 | NUR ---
Spoke with Dr. Lee (marketing analytics specialist) on the telephone. ABG results reported to the doctor. New orders received and carried out.
[2016-10-03] MEDS ORDERED: SODIUM BICARBONATE 8.4% 50 MEQ/50 ML DISP.SYRIN IV ONE (18:15)
[2016-10-03] MEDS: DOPamine IV DRIP 800 MG in IV DEXTROSE 5% 250 ML IV PRN (18:21)
--- NOTE | 2016-10-03 18:35 | NUR ---
started on dopamine drip for persistent hypotension at 2mcg/kg/min Addendum: 10/03/16 at 1835 by KEON BENITEZ RN Amended: Links added.
[2016-10-03] MEDS: IV NORMAL SALINE 250 ML IV PRN (18:55)
--- NOTE | 2016-10-03 19:10 | NUR ---
RECEIVED ON CONTINUOUS VENT AC 20 VT 550 FIO2 60%.ETT 7.5 SECURED AT 22 CM LIPLINE. SUCTION SMALL AMOUNT THIN WHITE SECRETIONS WITH BLOOD TINGE. ORAL CARE DONE. VENT CHECKED. ALARMS WORKING WELL AND AUDIBLE. BVM AT BEDSIDE.NO DISTRESS NOTED AT THIS TIME. WILL CONTINUE TO MONITOR Addendum: 10/03/16 at 2140 by OSIRIS SIFUENTES RT CORRECTION FIO2 35%.
--- NOTE | 2016-10-03 19:15 | NUR ---
bijal report given to Kevin RN Addendum: 10/03/16 at 2007 by KEON BENITEZ RN Amended: Links added.
[2016-10-03 20:47] LABS: ABG BASE EXCESS -7.7 mmol/L; ABG HCO3 14.5 mmol/L; ABG PCO2 21.3 mmHg (35.0-45.0); ABG PH 7.452 (7.350-7.450); ABG PO2 250.5 mmHg (75.0-100.0); ABG SITE RIGHT RADIAL; COHb 0.8 % (0.5-1.5); MetHb 0.3 % (0.0-1.5); O2Hb 98.5 % (94.0-97.0); VENT MODE VENT - A/C; VT, ABG 550 mL
[2016-10-03 20:47] LABS: ABG BASE EXCESS -12.2 mmol/L; ABG HCO3 12.6 mmol/L; ABG PCO2 25.5 mmHg (35.0-45.0); ABG PH 7.312 (7.350-7.450); ABG PO2 106.8 mmHg (75.0-100.0); ABG SITE RIGHT RADIAL; ABG TOTAL HEMOGLOBIN 9.5 G/dL (12.0-16.0); COHb 0.5 % (0.5-1.5); MetHb 0.5 % (0.0-1.5); O2Hb 96.2 % (94.0-97.0); VENT MODE VENT - A/C; VT, ABG 550 mL
[2016-10-03] MEDS: DEXTROSE 50% 50 ML DISP.SYRIN IV PRN (23:30)
[2016-10-04] VITALS (36 sets, daily range): BP systolic 60–142; BP diastolic 23–81
[2016-10-04] MEDS: PIPERACILLIN/TAZOBACTAM/D5W 2.25 G in PREMIXED 1 EACH IV SCH ×2 (01:59→06:52)
[2016-10-04] MEDS: SODIUM BICARBONATE 8.4% 100 MEQ in IV D5W 1000ML 1,000 ML IV PRN ×2 (03:57→17:34)
[2016-10-04] MEDS: MORPHINE SULFATE 2 MG/1 ML DISP.SYRIN IV PRN ×3 (04:19→14:23)
[2016-10-04] MEDS: ALBUMIN HUMAN 25% 25 GM in PREMIXED 1 EACH IV SCH (06:00)
[2016-10-04] MEDS: METRONIDAZOLE 500 MG/NS 100ML 500 MG in PREMIXED 1 EACH IV SCH (06:11)
[2016-10-04] MEDS: VANCOMYCIN FOR PO/GT/NG USE PO SCH ×3 (06:11→17:51)
[2016-10-04] MEDS: BLOOD SUGAR DIAGNOSTIC 1 EACH STRIP VI SCH ×3 (06:13→18:01)
--- NOTE | 2016-10-04 07:15 | NUR ---
report received from Laureen, Patient 86 yr old was transferred from [facility] to [facility] on 10/02/16 post code blue for bradycardia, hypotension and resp failure. Patient is s/p pacer insertion 10/03/16. remains intubated. ett to vent ac20, tv550, fio2 35%. on sodium bicarb drip at 75ml/hr via right ij cordis line. IV tko via right chest line. midline saline and right foot iv saline lock. remains anuric and edematous Addendum: 10/04/16 at 1557 by KEON BENITEZ RN Amended: Links added.
--- NOTE | 2016-10-04 07:30 | NUR ---
central line dressing done on right IJ cordis line and christina midline catheter. Addendum: 10/04/16 at 1534 by KEON BENITEZ RN Amended: Links added.
[2016-10-04 07:53] LABS: CALCIUM 7.7 mg/dL (8.5-10.1); MAGNESIUM 1.4 mg/dL (1.8-2.4); PHOSPHOROUS 4.2 mg/dL (2.5-4.9); POTASSIUM 3.5 mmol/L (3.5-5.1)
[2016-10-04 08:08] LABS: CREATININE 4.3 mg/dL (0.6-1.3)
[2016-10-04 08:22] LABS: ABG BASE EXCESS -10.7 mmol/L; ABG HCO3 13.2 mmol/L; ABG PCO2 22.4 mmHg (35.0-45.0); ABG PH 7.389 (7.350-7.450); ABG PO2 93.8 mmHg (75.0-100.0); ABG SITE RIGHT RADIAL; ABG TOTAL HEMOGLOBIN 6.7 G/dL (12.0-16.0); COHb 2.2 % (0.5-1.5); MetHb 0.8 % (0.0-1.5); O2Hb 93.4 % (94.0-97.0); VENT MODE VENT - A/C; VT, ABG 550 mL
[2016-10-04] MEDS: PANTOPRAZOLE SODIUM 40 MG VIAL IV SCH ×2 (08:44→20:58)
[2016-10-04] MEDS: AMLODIPINE 10 MG TABLET PO SCH (08:46)
[2016-10-04] MEDS: Z GUARD REMEDY PASTE 57 GM TUBE TOP SCH ×2 (08:46→20:58)
[2016-10-04] MEDS: CHOLECALCIFEROL 1,000 UNIT TABLET PO SCH (09:10)
[2016-10-04] MEDS: PROPAFENONE HCL 150 MG TABLET PO SCH ×2 (09:11→17:49)
[2016-10-04 09:27] LABS: WHITE BLOOD COUNT (AUTO) 24.2 K/uL (4.0-11.2)
[2016-10-04 09:31] LABS: HEMOGLOBIN 7.7 g/dL (12.0-16.0); RED BLOOD CELL COUNT(AUTO) 2.47 MIL/uL (4.20-5.40)
[2016-10-04 09:32] LABS: BASOPHILS % (AUTO) 0.4 % (0.0-2.0); EOSINOPHILS % (AUTO) 0.1 % (0.0-7.0); HEMATOCRIT 21.8 % (37.0-47.0); LYMPHOCYTES # (AUTO) 1.1 K/uL (0.8-4.8); LYMPHOCYTES % (AUTO) 4.5 % (20.5-51.5); MEAN CORPUSCULAR HEMOGLOBIN 31.3 uug (27.0-31.0); MEAN CORPUSCULAR HGB CONC 36 g/dL (32.0-37.0); MEAN CORPUSCULAR VOLUME 88.2 fL (81.0-99.0); MONOCYTES # (AUTO) 0.2 K/uL (0.1-1.30); MONOCYTES % (AUTO) 0.9 % (0.0-11.0); NEUTROPHILS # (AUTO) 22.8 K/uL (1.8-8.9); NEUTROPHILS % (AUTO) 94.1 % (38.5-71.5); PLATELET COUNT (AUTO) 60 K/uL (150-450); RED CELL DISTRIBUTION WIDTH 17.1 % (11.5-14.5)
[2016-10-04 09:33] LABS: BASOPHILS # (AUTO) 0.1 K/uL (0.0-0.2)
[2016-10-04 09:48] LABS: BAND % (MANUAL) 8 % (0-10); LYMPHOCYTES % (MANUAL) 6 % (20-40); METAMYELOCYTES % 1 % (0-1); MONOCYTES % (MANUAL) 1 % (2-10); MYELOCYTES % 1 % (0-0); NEUTROPHILS % (MANUAL) 83 % (42-75)
[2016-10-04 09:49] LABS: PLATELET ESTIMATE DECREASED
[2016-10-04 09:50] LABS: ANISOCYTOSIS 1+
[2016-10-04 09:53] LABS: TARGET CELLS 1+
--- NOTE | 2016-10-04 10:20 | NUR ---
seen by dr martinez with new orders. Addendum: 10/04/16 at 1532 by KEON BENITEZ RN Amended: Hermelinda added. Addendum: 10/04/16 at 1534 by KEON BENITEZ RN Amended: Hermelinda gutiérrez.
--- NOTE | 2016-10-04 10:44 | NUR ---
Received the patient 's DPOAHC from her friend and placed a copy in her chart. She added that the patient's step-daughter, Sharon House [[phone]], is also very concerned about the patient and is local but has her own in critical care so she is not physically able to visit. The DPOAHC states that the patient's main decision maker is her Keaton and her first alternative is her brother, Jarett [ ]. Updated the patient's RN, Abeba.
--- NOTE | 2016-10-04 12:00 | NUR ---
seen by dr dhaliwal with new orders. Addendum: 10/04/16 at 1506 by KEON BENITEZ RN Amended: Hermelinda added. Addendum: 10/04/16 at 1516 by KEON BENITEZ RN Amended: Hermelinda added. Addendum: 10/04/16 at 1532 by KEON BENITEZ RN Amended: Hermelinda added. Addendum: 10/04/16 at 1534 by KEON BENITEZ RN Amended: Hermelinda added.
--- NOTE | 2016-10-04 12:21 | NUR ---
Clinical Pharmacy Note: Vancomycin Dosing per Pharmacy Subjective: Vancomycin IV to start on this patient for worsening of sepsis (per ID note). Objective: BUN 41/Scr 4.3 (not HD WBC 24.2 Temperature 97.1 Assessment/Plan: Due to increased srcr & advanced age, will dose by fall off level. Will give vancomycin 1gm IVPB x1 dose today. Will check srcr in am & decide when to order next vancomycin random level for further dosing (if patient starts dialysis, will dose per dialysis protocol. No HD access yet). Will follow daily.
--- NOTE | 2016-10-04 12:30 | NUR ---
no insulin coverage for accucheck bs 69 Addendum: 10/04/16 at 1237 by KEON BENITEZ RN Amended: Links added.
[2016-10-04] MEDS: MICAFUNGIN SODIUM 100 MG in IV NORMAL SALINE 100 ML IV SCH (13:16)
[2016-10-04] MEDS: METRONIDAZOLE IV SCH ×2 (13:20→23:31)
[2016-10-04] MEDS: PREMIXED IV SCH ×2 (13:20→23:31)
[2016-10-04] MEDS: [UNRECOGNIZED DRUG - OTHER] IV SCH ×2 (13:20→23:31)
--- NOTE | 2016-10-04 13:45 | NUR ---
PT REMAINS ON CMV WITH ETT SECURED AND AIRWAY PATENT. PT APPEARS COMFORTABLE TOLERATING CURRENT VENT SETTINGS FINE WITH NO DISTRESS. ORAL CARE DONE.
[2016-10-04] MEDS: POLYVINYL ALCOHOL OPHT DROPS 15 ML BOTTLE EACHEYE PRN (13:58)
--- NOTE | 2016-10-04 13:59 | NUR ---
eye gtts to both eyes for dryness and redness right more than left Addendum: 10/04/16 at 1400 by KEON BENITEZ RN Amended: Links added.
[2016-10-04] MEDS ORDERED: VANCOMYCIN IV 1 G in PREMIXED 0 EACH IV ONE (14:00)
[2016-10-04] MEDS ORDERED: MEROPENEM 500 MG in IV NORMAL SALINE 50 ML IV SCH (16:00)
[2016-10-04] MEDS ORDERED: HEPARIN SODIUM,PORCINE 10,000 UNITS/10 ML VIAL INJ PRN (17:15)
--- NOTE | 2016-10-04 17:30 | NUR ---
patient had a 1 minute episode of grand mal seizure that involved whole body from head to toe but more on the right side. dr almanza was called and got orders for felipe Addendum: 10/04/16 at 1951 by KEON BENITEZ RN Amended: Links added. Addendum: 10/04/16 at 1953 by KEON BENITEZ RN Amended: Links added.
[2016-10-04] MEDS ORDERED: DOSING BY PHARMACY-MD TO SPECIFY MED/ROUTE XX PRN (17:45)
[2016-10-04] MEDS: LORAZEPAM 2 MG/1 ML VIAL IV PRN (17:48)
[2016-10-04] MEDS ORDERED: LEVETIRACETAM IV 500 MG in IV DEXTROSE 5% 100 ML IV SCH (18:00)
--- NOTE | 2016-10-04 18:09 | NUR ---
A call to Dr. Teagan Johns to report PT of 32.7 and INR of 3.17. Orders to call attending physician and notify him that of coagulation results.
--- NOTE | 2016-10-04 18:10 | NUR ---
tameka 77,no insulin coverage. Addendum: 10/04/16 at 4 by KEON BENITEZ RN Amended: Links added.
--- NOTE | 2016-10-04 18:15 | NUR ---
Dr. Zabala called and message left to Dr. Claudio Choi who's currently on air talent. Awaiting call back.
[2016-10-04] MEDS: IV NORMAL SALINE 250 ML IV PRN (18:17)
--- NOTE | 2016-10-04 19:15 | NUR ---
report given to Ciara MART
--- NOTE | 2016-10-04 19:50 | NUR ---
Pt rec'd on Marlow settings A/C 20, VT 550 and FIO2-35%. 7.5 ETT is patent and secure at approx. 22cm at the lip. Pt to be monitored throughout the shift and PRN SX. Marlow alarm parameters have been checked and remain audible. Oral care has been done.
--- NOTE | 2016-10-04 20:30 | NUR ---
Dialysis line inserted by Dr. Sanchez using sterile technique with guided US. Line at rt femoral with good blood return. VS stable.
[2016-10-04] MEDS: DOPamine IV DRIP 800 MG in IV DEXTROSE 5% 250 ML IV PRN (20:58)
[2016-10-04] MEDS ORDERED: NOREPINEPHRINE BITARTRATE 4 MG/4 ML VIAL IV ONE ×2 (21:19)
--- NOTE | 2016-10-04 21:30 | NUR ---
SBP went down to 40-60's/20's (DBP). Started w/ Dopamine 5mcg/kg/min as standing PRN order. Dr. Yu at the bedside and ordered to changed to Levophed.
--- NOTE | 2016-10-04 21:40 | NUR ---
Started with Levophed 16/mg/500ml of D5 started with 0.5mcg/min with low BP of 63/23. Pt was initially on Dopamine for few minutes but Dr. Yu changed it to Levophed.VS stable except for BP, pt has a pacemaker rate of 70's.
--- NOTE | 2016-10-04 21:40 | NUR ---
Started first unit of PRBC witnessed by AlejandraRN and hanged bby combat systems operator mine warfare Rosey Soriano. Dialysis started around 2114 (Rosey,combat systems operator mine warfare). VS stable BP is elevated, continue w/ Levophed increased to 1mcg/min.
[2016-10-04] MEDS: NOREPINEPHRINE BITARTRATE 16 MG in IV DEXTROSE 5% 500 ML IV PRN (21:41)
--- NOTE | 2016-10-04 22:05 | NUR ---
Started 2nd unit of PRBC , 1st unit completed around 2200. Dialysis is still on going. BP 116/48's. VS taken , PRBC was witnessed by AlejandraRN, blood hanged by BRITTNY Curriemultimedia assistant RN.
[2016-10-05] VITALS (97 sets, daily range): BP systolic 73–181; BP diastolic 21–102
--- NOTE | 2016-10-05 | NUR ---
Rendered bedbath, changed all linen, no BM noted.Oral care done.Pt was responsive nodding for yes and moving her head to side for no.She's more alert , trying to say something (moving her mouth).
[2016-10-05] MEDS: VANCOMYCIN FOR PO/GT/NG USE PO SCH ×5 (01:20→23:43)
--- NOTE | 2016-10-05 02:00 | NUR ---
Had a BM black tarry stool. NGT draining to reddish black secretions.
--- NOTE | 2016-10-05 04:15 | NUR ---
Had a grandmal seizures for 45 secs., given ativan 1mg/IV. Had another BM black/greenish color stool.Cleaned and changed chux,diapers/linen.
[2016-10-05] MEDS: LORAZEPAM 2 MG/1 ML VIAL IV PRN (04:18)
[2016-10-05 05:06] LABS: *OCCULT BLOOD STOOL POSITIVE (NEGATIVE)
[2016-10-05 05:12] LABS: EOSINOPHILS # (AUTO) 0.1 K/uL (0.0-0.7); HEMOGLOBIN 9.4 g/dL (12.0-16.0)
--- NOTE | 2016-10-05 05:13 | NUR ---
Pt remains on Marlow with no changes made to ventilator settings. No resp. distress noted throughout the shift. Pt routinely sx'd and appeared to tolerate continuous mechanical ventilator settings well. Marlow alarm parameters checked and remain audible. 7.5 ETT remains patent and secure at approx. 22cm now at the right lip.
--- NOTE | 2016-10-05 05:30 | NUR ---
Pt had another BM, liquidy black greenish color stool, large amount. Cleaned and changed linens/chux and diapers.
[2016-10-05 05:32] LABS: BASOPHILS # (AUTO) 0.1 K/uL (0.0-0.2); BASOPHILS % (AUTO) 0.3 % (0.0-2.0); EOSINOPHILS % (AUTO) 0.2 % (0.0-7.0); HEMATOCRIT 27.7 % (37.0-47.0); LYMPHOCYTES # (AUTO) 0.7 K/uL (0.8-4.8); LYMPHOCYTES % (AUTO) 2.7 % (20.5-51.5); MEAN CORPUSCULAR HEMOGLOBIN 29.1 uug (27.0-31.0); MEAN CORPUSCULAR HGB CONC 34 g/dL (32.0-37.0); MEAN CORPUSCULAR VOLUME 86.4 fL (81.0-99.0); MONOCYTES # (AUTO) 0.7 K/uL (0.1-1.30); MONOCYTES % (AUTO) 2.5 % (0.0-11.0); NEUTROPHILS # (AUTO) 24.9 K/uL (1.8-8.9); NEUTROPHILS % (AUTO) 94.3 % (38.5-71.5); RED BLOOD CELL COUNT(AUTO) 3.21 MIL/uL (4.20-5.40); RED CELL DISTRIBUTION WIDTH 15.9 % (11.5-14.5); WHITE BLOOD COUNT (AUTO) 26.5 K/uL (4.0-11.2)
[2016-10-05] MEDS: METRONIDAZOLE IV SCH ×3 (05:40→22:03)
[2016-10-05] MEDS: PREMIXED IV SCH ×3 (05:40→22:03)
[2016-10-05] MEDS: [UNRECOGNIZED DRUG - OTHER] IV SCH ×3 (05:40→22:03)
[2016-10-05 05:47] LABS: PLATELET COUNT (AUTO) 25 K/uL (150-450)
[2016-10-05 05:51] LABS: BAND % (MANUAL) 11 % (0-10); LYMPHOCYTES % (MANUAL) 4 % (20-40); MONOCYTES % (MANUAL) 5 % (2-10); NEUTROPHILS % (MANUAL) 78 % (42-75)
[2016-10-05] MEDS: BLOOD SUGAR DIAGNOSTIC 1 EACH STRIP VI SCH ×5 (05:52→23:52)
[2016-10-05 05:53] LABS: ANISOCYTOSIS 1+; PLATELET ESTIMATE MARKED DECREASED; TARGET CELLS 1+
[2016-10-05 05:58] LABS: ALBUMIN 2.1 g/dL (3.4-5.0); BILIRUBIN,TOTAL 1.3 mg/dL (0.2-1.0); MAGNESIUM 1.4 mg/dL (1.8-2.4); PHOSPHOROUS 2.8 mg/dL (2.5-4.9); POTASSIUM 3.3 mmol/L (3.5-5.1); TOTAL PROTEIN, SERUM 3.6 g/dL (6.4-8.2)
[2016-10-05 06:09] LABS: CREATININE 3.5 mg/dL (0.6-1.3)
--- NOTE | 2016-10-05 06:55 | NUR ---
Called [facility] and reported critical lab value and made them aware of the black tarry/greenish stool large amount including 300ml of NGT drainage (reddish black) no new orders obtained. mentioned that they will be here soon.
--- NOTE | 2016-10-05 07:10 | NUR ---
Update report to BRITTNY Us
--- NOTE | 2016-10-05 07:15 | NUR ---
report received from Robyn MART. patient 86 yr old female. patient remains orally intubated . ett to vent tv550, ac20 fio2 35%. has inspiratory rhonci, no bowel sound. on levophed drip at 4 mcg/min. has multiple IV antibiotics. ogt intact now draining blood tinged brown drainage. vascath for hemodialysis via right femoral catheter. mian intact 150 ml times 12hrs.
[2016-10-05] MEDS ORDERED: DOSING BY PHARMACY-MD TO SPECIFY MED/ROUTE XX PRN (08:00)
[2016-10-05] MEDS: SODIUM BICARBONATE 8.4% 100 MEQ in IV D5W 1000ML 1,000 ML IV PRN (09:45)
[2016-10-05] MEDS: PANTOPRAZOLE SODIUM 40 MG VIAL IV SCH ×2 (09:48→20:02)
[2016-10-05] MEDS: AMLODIPINE 10 MG TABLET PO SCH (09:49)
[2016-10-05] MEDS: CHOLECALCIFEROL 1,000 UNIT TABLET PO SCH (09:50)
[2016-10-05] MEDS: Z GUARD REMEDY PASTE 57 GM TUBE TOP SCH ×2 (09:51→20:02)
[2016-10-05] MEDS: PROPAFENONE HCL 150 MG TABLET PO SCH ×2 (09:56→16:16)
--- NOTE | 2016-10-05 11:00 | NUR ---
seen by dr martinez. orders received. Addendum: 10/05/16 at 1419 by KEON BENITEZ RN Amended: Hermelinda added. Addendum: 10/05/16 at 1420 by KEON BENITEZ RN Amended: Hermelinda added.
--- NOTE | 2016-10-05 11:47 | NUR ---
RESPIRATORY RATE WAS DROPPED TO 14 AND VT DECREASED TO [address] OROZCO. BRITTNY HERBERT MADE AWARE OF THE CHANGE.
--- NOTE | 2016-10-05 11:48 | NUR ---
Clinical Pharmacy Note: Vancomycin Dosing per Pharmacy Subjective: Vancomycin IV to continue on this dialysis patient for worsening of sepsis (per ID note). Objective: BUN 31/Scr 3.5 WBC 26.5 Temperature 97.5 Vancomycin random level: 25 (pre-HD level) Assessment/Plan: HD has been schedule for today per HD nurse. Since vancomycin pre-HD level is 25 mcg/ml, no dose shall be due today post HD as per vancomycin dosing protocol for dialysis patient. Will continue to dose per dialysis protocol. Will follow daily.
[2016-10-05 11:59] LABS: ABG BASE EXCESS -3.8 mmol/L; ABG HCO3 17.2 mmol/L; ABG PCO2 20.3 mmHg (35.0-45.0); ABG PH 7.545 (7.350-7.450); ABG PO2 93.4 mmHg (75.0-100.0); ABG SITE RIGHT RADIAL; ABG TOTAL HEMOGLOBIN 10.2 G/dL (12.0-16.0); MetHb 0.3 % (0.0-1.5); O2Hb 96.2 % (94.0-97.0); VENT MODE VENT - A/C; VT, ABG 550 mL
--- NOTE | 2016-10-05 12:15 | NUR ---
seen by dr miller. updated with recent events. awaiting for culture results Addendum: 10/05/16 at 1420 by KEON BENITEZ RN Amended: Links added.
[2016-10-05] MEDS: MICAFUNGIN SODIUM 100 MG in IV NORMAL SALINE 100 ML IV SCH (12:40)
[2016-10-05] MEDS: NOREPINEPHRINE BITARTRATE 16 MG in IV DEXTROSE 5% 500 ML IV PRN (12:42)
--- NOTE | 2016-10-05 13:14 | NUR ---
tameka bs 81, no insulin coverage Addendum: 10/05/16 at 1314 by KEON BENITEZ RN Amended: Links added.
--- NOTE | 2016-10-05 17:00 | NUR ---
hemodialysis started @. levophed titrade up to be able to take fluids out Addendum: 10/05/16 at 1748 by KEON BENITEZ RN Amended: Links added. Addendum: 10/05/16 at 1750 by KEON BENITEZ RN Amended: Links added.
--- NOTE | 2016-10-05 17:30 | NUR ---
sonia bs 87, no insulin coverage Addendum: 10/05/16 at 1750 by KEON BENITEZ RN Amended: Links added.
[2016-10-05] MEDS: IV NORMAL SALINE 250 ML IV PRN (17:42)
--- NOTE | 2016-10-05 18:00 | NUR ---
seen by dr dhaliwal. aware of past events including patient's mental status (more awake) 2 episodes of grand mal seizures, gi bleeding, lower and upper and low platelets. orders received. Addendum: 10/05/16 at 1858 by KEON BENITEZ RN Amended: Links added.
--- NOTE | 2016-10-05 19:30 | NUR ---
Dialysis procedure just completed. Total 1.2L pulled out by kst operator. Pt intubated on vent, comfortable on current settings. Pt's eyes barely open to touch, looks around, does not follow commands. Still on Levophed, actively titrating down to keep SBP >=100 infusing via cordis right IJ. NS tko for IVPBs at right upper chest IV site. NG [place] sump to low suction with bloody drainage. Scant urine output. Flexiseal intact with bloody output. Anasarca, weepy extremities. Nursing comfort measures observed. Kept clean and dry. Please see CCU flowsheet for full assessment and clinical data.
--- NOTE | 2016-10-05 19:30 | NUR ---
report given to Bailee Addendum: 10/05/16 at 1945 by KEON BENITEZ RN Amended: Links added.
--- NOTE | 2016-10-05 19:37 | NUR ---
Pt received on Marlow vent with current settings of AC 14, VT 500, FiO2 35%. No changes made to vent settings, pt tolerating settings well. Pt is orally intubated with a 7.5 ETT, secured with [place] Fast at approximately 22cm at the lip. ETT is patent. Suctioned pt with small amount of pink-tinged secretions. Oral care done. Vent alarm parameters checked, functioning and audible. Will continue to monitor pt throughout shift.
[2016-10-05] MEDS: MORPHINE SULFATE 2 MG/1 ML DISP.SYRIN IV PRN ×2 (19:55→23:43)
[2016-10-05] MEDS: POLYVINYL ALCOHOL OPHT DROPS 15 ML BOTTLE EACHEYE PRN (20:00)
[2016-10-05] MEDS: LEVETIRACETAM IV 500 MG in IV DEXTROSE 5% 100 ML IV SCH (20:02)
[2016-10-05] MEDS: CEFEPIME HCL 0.5 G in IV DEXTROSE 5% 50 ML IV SCH (20:44)
--- NOTE | 2016-10-05 22:00 | NUR ---
Started on transfusion of plateletpheresis. Seen and evaluated by Dr. Yu, condition update given and no new orders received.
[2016-10-05] MEDS: DEXTROSE 50% 50 ML DISP.SYRIN IV PRN (23:54)
[2016-10-06] VITALS (96 sets, daily range): BP systolic 35–169; BP diastolic 17–100
--- NOTE | 2016-10-06 00:01 | NUR ---
Platelet transfusion completed with no adverse effects.
[2016-10-06] MEDS: POLYVINYL ALCOHOL OPHT DROPS 15 ML BOTTLE EACHEYE PRN (00:11)
--- NOTE | 2016-10-06 00:45 | NUR ---
Midnight accucheck showed blood glucose 52. D50 1 amp IVP given per protocol and BS repeat accuchek up to 131. Will continue to monitor.
[2016-10-06] MEDS: MORPHINE SULFATE 2 MG/1 ML DISP.SYRIN IV PRN ×2 (04:47→22:58)
[2016-10-06 05:15] LABS: BASOPHILS # (AUTO) 0.3 K/uL (0.0-0.2); BASOPHILS % (AUTO) 1.1 % (0.0-2.0); EOSINOPHILS # (AUTO) 0.2 K/uL (0.0-0.7); EOSINOPHILS % (AUTO) 0.8 % (0.0-7.0); HEMATOCRIT 23.6 % (37.0-47.0); HEMOGLOBIN 7.9 g/dL (12.0-16.0); LYMPHOCYTES # (AUTO) 0.9 K/uL (0.8-4.8); LYMPHOCYTES % (AUTO) 3.8 % (20.5-51.5); MEAN CORPUSCULAR HEMOGLOBIN 29.3 uug (27.0-31.0); MEAN CORPUSCULAR HGB CONC 34 g/dL (32.0-37.0); MONOCYTES # (AUTO) 0.5 K/uL (0.1-1.30); NEUTROPHILS # (AUTO) 21.8 K/uL (1.8-8.9); NEUTROPHILS % (AUTO) 92.3 % (38.5-71.5); PLATELET COUNT (AUTO) 79 K/uL (150-450); RED BLOOD CELL COUNT(AUTO) 2.72 MIL/uL (4.20-5.40); RED CELL DISTRIBUTION WIDTH 16.2 % (11.5-14.5); WHITE BLOOD COUNT (AUTO) 23.7 K/uL (4.0-11.2)
[2016-10-06 05:20] LABS: CALCIUM 6.8 mg/dL (8.5-10.1); MAGNESIUM 1.3 mg/dL (1.8-2.4); POTASSIUM 3.1 mmol/L (3.5-5.1)
[2016-10-06 05:22] LABS: CREATININE 3.4 mg/dL (0.6-1.3)
[2016-10-06] MEDS: VANCOMYCIN FOR PO/GT/NG USE PO SCH ×3 (05:25→18:10)
[2016-10-06] MEDS: PREMIXED IV SCH ×3 (05:25→22:46)
[2016-10-06] MEDS: [UNRECOGNIZED DRUG - OTHER] IV SCH ×3 (05:25→22:46)
[2016-10-06] MEDS: METRONIDAZOLE IV SCH ×3 (05:25→22:46)
[2016-10-06 05:28] LABS: BAND % (MANUAL) 4 % (0-10); LYMPHOCYTES % (MANUAL) 7 % (20-40); MONOCYTES % (MANUAL) 6 % (2-10); NEUTROPHILS % (MANUAL) 82 % (42-75); PLATELET ESTIMATE DECREASED
[2016-10-06 05:29] LABS: ANISOCYTOSIS 1+; TARGET CELLS 1+
--- NOTE | 2016-10-06 06:00 | NUR ---
Pt medicated with Morphine q 4hr through the night for max comfort. Levophed titrating up and down, currently at 4 mcg/min. Otherwise, gen.condition unchanged. Please see CCU flowsheet for trends and clinical data.
[2016-10-06] MEDS: BLOOD SUGAR DIAGNOSTIC 1 EACH STRIP VI SCH ×3 (06:09→18:10)
--- NOTE | 2016-10-06 06:30 | NUR ---
Maintained on contact precautions pending final results of all cultures.
--- NOTE | 2016-10-06 06:50 | NUR ---
No seizure episode this shift. Will continue to monitor closely.
--- NOTE | 2016-10-06 07:00 | NUR ---
PT RECEIVED ON ESPARZA VENT AT THIS TIME WITH SETTINGS OFF AC 14, VT 500, 35% WITH ET-TUBE 7.5 AT 22CM LEFT LIP LINE SECURED WITH ANCHOR FAST. PT CUFF WAS CHECKED WITH GROUND WATER CONTRACTOR. PT HAS NO TX ORDER. PT HME WAS CHANGED. PT ORAL CARE WAS DONE. PT WAS SUCTION WITH SCANT AMOUNT OF RED TING SECRETION. PT AT THIS TIME IS TOLERATING VENT WELL. HAS NO DISTRESS NOTED. PT VENT ALARMS ON AND AUDIBLE, AMBU-BAG AT BED SIDE. ABG WILL BE DONE AT 0900. WILL CONTINUE TO MONITOR PT THROUGHOUT SHIFT.
--- NOTE | 2016-10-06 07:57 | NUR ---
paged doctor bettiemandian for abnormal labs, notify of hypoglycemia, and low hemoglobin. pending call back.
[2016-10-06] MEDS: PANTOPRAZOLE SODIUM 40 MG VIAL IV SCH ×2 (08:48→22:47)
[2016-10-06] MEDS: CHOLECALCIFEROL 1,000 UNIT TABLET PO SCH (08:49)
[2016-10-06] MEDS: PROPAFENONE HCL 150 MG TABLET PO SCH ×2 (08:49→18:09)
[2016-10-06] MEDS: Z GUARD REMEDY PASTE 57 GM TUBE TOP SCH ×2 (08:50→21:04)
[2016-10-06] MEDS: AMLODIPINE 10 MG TABLET PO SCH (09:00)
--- NOTE | 2016-10-06 09:00 | NUR ---
PT ABG WAS DONE AND DUE TO RESULTS FIO2 WAS TITRATED DOWN TOP 30% PER MD ORDER TO KEEP SPO2 >94% WILL CONTINUE TO MONITOR PT RN AWARE OF CHANGES.
[2016-10-06] MEDS: POTASSIUM CHLORIDE 50 ML IV SCH ×4 (09:02→12:11)
[2016-10-06] MEDS: MAGNESIUM SULFATE/D5W 100 ML IV SCH ×3 (09:04→12:11)
[2016-10-06] MEDS: SODIUM CHLORIDE 4 MEQ/ML VIAL 77 MEQ in IV 10% DEXTROSE 1,000 ML IV PRN (09:18)
[2016-10-06 09:20] LABS: ABG BASE EXCESS -3.6 mmol/L; ABG HCO3 18.9 mmol/L; ABG PCO2 28.2 mmHg (35.0-45.0); ABG PH 7.445 (7.350-7.450); ABG PO2 114.6 mmHg (75.0-100.0); ABG SITE RIGHT RADIAL; VENT MODE VENT - A/C; VT, ABG 500 mL
[2016-10-06] MEDS: NOREPINEPHRINE BITARTRATE 16 MG in IV DEXTROSE 5% 500 ML IV PRN (12:14)
[2016-10-06] MEDS: MICAFUNGIN SODIUM 100 MG in IV NORMAL SALINE 100 ML IV SCH (12:39)
--- NOTE | 2016-10-06 14:12 | NUR ---
Clinical Pharmacy Note: Vancomycin Dosing per Pharmacy Subjective: Vancomycin IV to continue on this dialysis patient for worsening of sepsis (per ID note). Objective: BUN 32/Scr 3.4 WBC 23.7 Temperature 98 Vancomycin random level: 21 (pre-HD level) Assessment/Plan: HD has been scheduled again for today per HD medical scheduler. Since vancomycin pre-HD level today is 21 mcg/ml, no dose shall be due today post HD as per vancomycin dosing protocol for dialysis patient. Will continue to dose per dialysis protocol. Will follow daily.
--- NOTE | 2016-10-06 15:05 | NUR ---
PT AT THIS TIME TOLERATING VENT WELL NO DISTRESS NOTE NO CHANGES MADE. PT CARE TRANSFER TO RT MASOOD AND RT KAREEM.
--- NOTE | 2016-10-06 15:15 | NUR ---
DOCTOR OROZCO IN THE UNIT ROUNDING ON PATIENT.
--- NOTE | 2016-10-06 16:00 | NUR ---
DOCTOR OROZCO IN UNIT ROUNDING ON PATIENT. Addendum: 10/06/16 at 1944 by EAN TINSLEY RN WRONG TIME
--- NOTE | 2016-10-06 17:35 | NUR ---
IRRIGATED RECTAL BAG LARGE BLOOD CLOTS REMOVED AND 100ML BAG OF BLOODY LIQUID REMOVED FROM RECTAL TUBE.
--- NOTE | 2016-10-06 17:37 | NUR ---
ON OGT CHANGED CANISTER WITH YELLOW AND RED THICK FLUID 300ML WAS IN CANISTER.
--- NOTE | 2016-10-06 18:00 | NUR ---
DOCTOR CHAVEZ IN UNIT ROUNDING ON PATIENT.
--- NOTE | 2016-10-06 19:52 | NUR ---
Received on Marlow ventilator with the following settings of AC 14, VT 500, FiO2 30%. No changes made to vent settings at this time, pt tolerating settings well. Pt is orally intubated with a 7.5 ETT, secured with [place] Fast at approximately 22cm at the lip. Suctioned pt with small amount of red-tinged secretions. Oral care done. Ambu-bag at bedside. Vent alarms functioning and audible. Will continue to monitor pt throughout shift.
--- NOTE | 2016-10-06 20:45 | NUR ---
HD started. 2nd unit of blood to be given while dialyzed.
--- NOTE | 2016-10-06 21:02 | NUR ---
IV medications due at 2100 to be given after dialysis completed
[2016-10-06] MEDS: CEFEPIME HCL 0.5 G in IV DEXTROSE 5% 50 ML IV SCH (22:45)
[2016-10-06] MEDS: LEVETIRACETAM IV 500 MG in IV DEXTROSE 5% 100 ML IV SCH (22:45)
--- NOTE | 2016-10-06 23:22 | NUR ---
Seizure activity noted, 2322 lasting less than 1 minute. Ativan given as ordered.
[2016-10-06] MEDS: LORAZEPAM 2 MG/1 ML VIAL IV PRN (23:24)
[2016-10-07] VITALS (99 sets, daily range): BP systolic 75–148; BP diastolic 35–100
[2016-10-07] MEDS: BLOOD SUGAR DIAGNOSTIC 1 EACH STRIP VI SCH ×4 (00:42→18:54)
[2016-10-07] MEDS: VANCOMYCIN FOR PO/GT/NG USE PO SCH ×4 (00:42→18:48)
[2016-10-07 05:14] LABS: BILIRUBIN,TOTAL 1.8 mg/dL (0.2-1.0); CALCIUM 6.6 mg/dL (8.5-10.1); MAGNESIUM 1.7 mg/dL (1.8-2.4); PHOSPHOROUS 2.9 mg/dL (2.5-4.9); POTASSIUM 3.6 mmol/L (3.5-5.1); TOTAL PROTEIN, SERUM 3.1 g/dL (6.4-8.2)
[2016-10-07 05:15] LABS: BASOPHILS % (AUTO) 0.1 % (0.0-2.0); EOSINOPHILS # (AUTO) 0.2 K/uL (0.0-0.7); HEMOGLOBIN 10.2 g/dL (12.0-16.0); LYMPHOCYTES # (AUTO) 1.1 K/uL (0.8-4.8); MEAN CORPUSCULAR HGB CONC 35 g/dL (32.0-37.0); MONOCYTES # (AUTO) 0.6 K/uL (0.1-1.30); NEUTROPHILS # (AUTO) 23.1 K/uL (1.8-8.9); NEUTROPHILS % (AUTO) 92.4 % (38.5-71.5)
[2016-10-07 05:17] LABS: EOSINOPHILS % (AUTO) 0.8 % (0.0-7.0); HEMATOCRIT 29.1 % (37.0-47.0); LYMPHOCYTES % (AUTO) 4.2 % (20.5-51.5); MEAN CORPUSCULAR HEMOGLOBIN 30.2 uug (27.0-31.0); MONOCYTES % (AUTO) 2.5 % (0.0-11.0); RED BLOOD CELL COUNT(AUTO) 3.39 MIL/uL (4.20-5.40); RED CELL DISTRIBUTION WIDTH 15.1 % (11.5-14.5)
[2016-10-07 05:19] LABS: ALBUMIN 1.5 g/dL (3.4-5.0); CREATININE 3.3 mg/dL (0.6-1.3)
[2016-10-07 05:36] LABS: PLATELET COUNT (AUTO) 29 K/uL (150-450)
[2016-10-07 05:50] LABS: BAND % (MANUAL) 7 % (0-10); EOSINOPHILS % (MANUAL) 1 % (0-8); LYMPHOCYTES % (MANUAL) 5 % (20-40); MONOCYTES % (MANUAL) 2 % (2-10); NEUTROPHILS % (MANUAL) 84 % (42-75)
[2016-10-07 05:52] LABS: ANISOCYTOSIS 1+; PLATELET ESTIMATE MARKED DECREASED; TARGET CELLS 1+
--- NOTE | 2016-10-07 05:55 | NUR ---
Pt remains on Marlow vent with current settings, no changes made. No respiratory distress noted throughout shift. Suctioned pt routinely with small to moderate amount of pale/pink tinged secretions. Changed HME and suction stacy. Vent alarms are audible and functioning.
[2016-10-07] MEDS: [UNRECOGNIZED DRUG - OTHER] IV SCH ×3 (06:09→21:26)
[2016-10-07] MEDS: METRONIDAZOLE IV SCH ×3 (06:09→21:26)
[2016-10-07] MEDS: PREMIXED IV SCH ×3 (06:09→21:26)
--- NOTE | 2016-10-07 07:14 | NUR ---
Pt received laying in bed, semi-Lockett's position, eyes open, unable to communicate, grimaces with stimuli.. Pt orally intubated, ETT 7.5 approx 21 @ lip, ETT moved to right.. ETT secured with [place] fast, repositioned [place] fast to relieve pressure from lower lip, reddening noted, nurse notfied.. No skin breakdown / irritation visible under/around anchor fast pads.. Continuous mechanical ventilation, Vent: Marlow with settings: A/C 14, Vt 500, FiO2 30%, tolerating well at this time, no changes made.. Vent alarms on / audible and functioning normally at this time, lowered high PIP alarm to 40.. Oral care done.. No S.O.B at this time, will continue to monitor..
[2016-10-07] MEDS: AMLODIPINE 10 MG TABLET PO SCH (08:15)
[2016-10-07] MEDS: PANTOPRAZOLE SODIUM 40 MG VIAL IV SCH ×2 (08:28→21:04)
[2016-10-07] MEDS: Z GUARD REMEDY PASTE 57 GM TUBE TOP SCH ×2 (08:28→21:06)
[2016-10-07] MEDS: CHOLECALCIFEROL 1,000 UNIT TABLET PO SCH (08:28)
[2016-10-07] MEDS: PROPAFENONE HCL 150 MG TABLET PO SCH ×3 (08:28→18:48)
[2016-10-07] MEDS ORDERED: MAGNESIUM SULFATE/D5W 100 ML IV SCH (09:00)
[2016-10-07 10:20] LABS: ABG BASE EXCESS -3.9 mmol/L; ABG HCO3 19.1 mmol/L; ABG PCO2 27.6 mmHg (35.0-45.0); ABG PH 7.457 (7.350-7.450); ABG PO2 99.7 mmHg (75.0-100.0); ABG SITE RIGHT RADIAL; ABG TOTAL HEMOGLOBIN 9.8 G/dL (12.0-16.0); COHb 1.5 % (0.5-1.5); MetHb 0.3 % (0.0-1.5); O2Hb 95.9 % (94.0-97.0); VENT MODE VENT - A/C; VT, ABG 500 mL
[2016-10-07] MEDS: MICAFUNGIN SODIUM 100 MG in IV NORMAL SALINE 100 ML IV SCH (13:15)
--- NOTE | 2016-10-07 17:29 | NUR ---
Clinical Pharmacy Note: Vancomycin Dosing per Pharmacy Subjective: Vancomycin IV to continue on this dialysis patient for worsening of sepsis (per ID note). Objective: BUN 27/Scr 3.3 WBC 25 Temperature 98 Assessment/Plan: No HD scheduled today per HD supplier diversity director. No dose will be given today. HD ordered for tomorrow, Pre-HD level ordered with tomorrow am labs. Will check for HD session tomorrow and if level ok, re-dose after HD. Will continue to dose per dialysis protocol. Will follow daily.
--- NOTE | 2016-10-07 19:05 | NUR ---
Pt received in semi carmona position, orally intubated and receiving continuous mechanical ventilation. Pt is responsive to verbal stimuli. Pt is orally intubated with a 7.5 ETT secured at 22cm lip line. ETT secured with AnchorFast. No skin deterioration noted around placement of AnchoFast. Pt is on Marlow vent with settings of A/C-14, VT-500, FIO2-30%. Tolerating vent settings well. SpO2-99% No respiratory distress noted. Vent alarm parameters checked, on and audible. ETT moved to Left side of mouth. Skin tear noted on inside of bottom lip, Left side. RN Chad aware. Oral care done. HME changed. Vent plugged into red emergency outlet. Bag/valve/mask at bedside.
[2016-10-07] MEDS: CEFEPIME HCL 0.5 G in IV DEXTROSE 5% 50 ML IV SCH (21:05)
[2016-10-07] MEDS: LEVETIRACETAM IV 500 MG in IV DEXTROSE 5% 100 ML IV SCH (21:05)
[2016-10-08] VITALS (62 sets, daily range): BP systolic 83–150; BP diastolic 40–95
[2016-10-08] MEDS: VANCOMYCIN FOR PO/GT/NG USE PO SCH ×5 (00:02→23:25)
[2016-10-08] MEDS: BLOOD SUGAR DIAGNOSTIC 1 EACH STRIP VI SCH ×5 (00:03→23:30)
[2016-10-08] MEDS: SODIUM CHLORIDE 4 MEQ/ML VIAL 77 MEQ in IV 10% DEXTROSE 1,000 ML IV PRN (01:19)
[2016-10-08 05:09] LABS: BILIRUBIN,TOTAL 1.7 mg/dL (0.2-1.0); CALCIUM 6.7 mg/dL (8.5-10.1); MAGNESIUM 1.8 mg/dL (1.8-2.4); PHOSPHOROUS 3.4 mg/dL (2.5-4.9); POTASSIUM 3.4 mmol/L (3.5-5.1); TOTAL PROTEIN, SERUM 3.4 g/dL (6.4-8.2)
[2016-10-08 05:16] LABS: EOSINOPHILS # (AUTO) 0.2 K/uL (0.0-0.7); EOSINOPHILS % (AUTO) 1.4 % (0.0-7.0); HEMOGLOBIN 7.9 g/dL (12.0-16.0); LYMPHOCYTES # (AUTO) 1.1 K/uL (0.8-4.8); LYMPHOCYTES % (AUTO) 8.7 % (20.5-51.5); MEAN CORPUSCULAR HEMOGLOBIN 29.4 uug (27.0-31.0); MEAN CORPUSCULAR HGB CONC 34 g/dL (32.0-37.0); MEAN CORPUSCULAR VOLUME 85.8 fL (81.0-99.0); MONOCYTES # (AUTO) 0.5 K/uL (0.1-1.30); MONOCYTES % (AUTO) 4.2 % (0.0-11.0); NEUTROPHILS # (AUTO) 11.3 K/uL (1.8-8.9); NEUTROPHILS % (AUTO) 85.7 % (38.5-71.5); RED BLOOD CELL COUNT(AUTO) 2.68 MIL/uL (4.20-5.40); RED CELL DISTRIBUTION WIDTH 15.3 % (11.5-14.5); WHITE BLOOD COUNT (AUTO) 13.1 K/uL (4.0-11.2)
[2016-10-08 05:27] LABS: CREATININE 3.4 mg/dL (0.6-1.3)
[2016-10-08 05:29] LABS: ALBUMIN 1.5 g/dL (3.4-5.0)
[2016-10-08 05:41] LABS: PLATELET COUNT (AUTO) 19 K/uL (150-450)
[2016-10-08 05:44] LABS: BAND % (MANUAL) 6 % (0-10); EOSINOPHILS % (MANUAL) 2 % (0-8); LYMPHOCYTES % (MANUAL) 10 % (20-40); MONOCYTES % (MANUAL) 3 % (2-10); NEUTROPHILS % (MANUAL) 77 % (42-75)
[2016-10-08 05:55] LABS: ANISOCYTOSIS 2+; PLATELET ESTIMATE MARKED DECREASED; TARGET CELLS 1+
[2016-10-08] MEDS: [UNRECOGNIZED DRUG - OTHER] IV SCH ×3 (06:05→22:13)
[2016-10-08] MEDS: METRONIDAZOLE IV SCH ×3 (06:05→22:13)
[2016-10-08] MEDS: PREMIXED IV SCH ×3 (06:05→22:13)
--- NOTE | 2016-10-08 07:30 | NUR ---
Pt.sleeping ,no s/s of distress.
--- NOTE | 2016-10-08 08:01 | NUR ---
RECEIVED PATIENT LAYING IN BED, IN SEMI-MARTINEZ'S POSITION. PATIENT IS ORALLY INTUBATED WITH A 7.5 ETT (SECURED AT 22 CM LIP LINE) AND IS ON THE ESPARZA VENTILATOR. ETT IS SECURED WITH THE ANCHORFAST. NO SKIN BREAKDOWN NOTED AROUND PLACEMENT OF THE ANCHORFAST. PATIENT IS ON THE FOLLOWING SETTINGS: AC 14, VT 500, AND FIO2 30%. SPO2 IS AT 99% AT THIS TIME. TOLERATING VENTILATOR SETTINGS WELL WITH NO SOB NOTED. ALARMS ARE ON AND AUDIBLE. AMBU BAG AT BEDSIDE. VENT IS PLUGGED INTO THE RED OUTLET. ETT IS ON MIDDLE OF THE MOUTH. SKIN TEAR NOTED INSIDE BOTTOM LIP, BOTH RIGHT AND LEFT SIDE. BRITTNY RIVAS IS AWARE. CHANGED HME. ABG IS TO BE DRAWN AT 0900. WILL CONTINUE TO MONITOR PATIENT.
[2016-10-08] MEDS: PANTOPRAZOLE SODIUM 40 MG VIAL IV SCH ×2 (08:41→20:49)
[2016-10-08] MEDS: AMLODIPINE 10 MG TABLET PO SCH (08:42)
[2016-10-08] MEDS: PROPAFENONE HCL 150 MG TABLET PO SCH ×2 (08:43→17:50)
[2016-10-08] MEDS: CHOLECALCIFEROL 1,000 UNIT TABLET PO SCH (08:43)
[2016-10-08] MEDS: Z GUARD REMEDY PASTE 57 GM TUBE TOP SCH ×2 (08:43→20:49)
--- NOTE | 2016-10-08 09:05 | NUR ---
Pt.was seen by .
[2016-10-08 09:36] LABS: ABG BASE EXCESS -4.7 mmol/L; ABG HCO3 18.6 mmol/L; ABG PCO2 27.7 mmHg (35.0-45.0); ABG PH 7.445 (7.350-7.450); ABG PO2 86.3 mmHg (75.0-100.0); ABG SITE RIGHT RADIAL; COHb 1.9 % (0.5-1.5); MetHb 0.4 % (0.0-1.5); O2Hb 93.7 % (94.0-97.0); VENT MODE VENT - A/C; VT, ABG 500 mL
--- NOTE | 2016-10-08 10:17 | NUR ---
Pt.was seen by .
[2016-10-08] MEDS: NOREPINEPHRINE BITARTRATE 16 MG in IV DEXTROSE 5% 500 ML IV PRN (10:42)
[2016-10-08] MEDS ORDERED: ALBUMIN HUMAN 25% 100 ML IV ONE (11:30)
--- NOTE | 2016-10-08 11:40 | NUR ---
Pt.was seen by with new orders. was paged.
[2016-10-08] MEDS: MICAFUNGIN SODIUM 100 MG in IV NORMAL SALINE 100 ML IV SCH (12:58)
--- NOTE | 2016-10-08 14:30 | NUR ---
OG tube was advance 8 inch as ordered per GAGE Olsen ordered to conf.placement.
[2016-10-08] MEDS ORDERED: VANCOMYCIN IV 1 G in PREMIXED 0 EACH IV ONE (15:30)
--- NOTE | 2016-10-08 16:04 | NUR ---
Clinical Pharmacy Note: Vancomycin Dosing per Pharmacy Subjective: Vancomycin IV to continue on this dialysis patient for worsening of sepsis (per ID note). Objective: BUN 28/Scr 3.4 WBC 13.1 Temperature 98.4 Pre-HD Level: 18 (today w am labs) Assessment/Plan: HD scheduled and given today, based on pre-HD level will dose another 1gm x 1 due after HD at 1530. Will check for HD session tomorrow and if level ok, re-dose after HD. Will continue to dose per dialysis protocol. Will follow daily.
--- NOTE | 2016-10-08 18:27 | NUR ---
Nutritional Risk High Diagnosis ABD PAIN Pertinent Medical Surgical History ISCHEMIC STROKE HTN AFIB ANGINA CAD PNA GI BLEED RENAL FAILURE DM SYSTEMIC LUPUS ERYTHEMATOSUS Subjective Information LOW PLT LEVELS, SPOKE TO RN ESTEVAN-STARTING TF- NOVASOURCE RENAL, AT RISK FOR DUMPING SYNDROME SINCE W/O NUTRITION FOR 10 DAYS Flagyl, SSI, cefipime, D5% sodium bicarb @ 75mls/hr, levophed Pertinent Labs 10/08: WBC-13.1 (H), H/H-7.9/23.0 (L/L), K+3.4 (L), BUN/Cr-28/3.4 (H/H), BG-115 (H), Ca-6.7 (L)ALB-1.5 (L) Intake and Output 3208/1210 Height (Feet) 5 feet Height (Inches) 5.00 inches Patient Height 65 in Weight (Pounds) 171 pounds (WT FLUCTUATIONS NOTED W/ HD) Skin Breakdown Yes Skin Integrity Comment David: 11: Partial Thickness Loss [place] Body Weight 125 lb % [place] Body Weight 126% Body Mass Index 29.3 Weight Status WNL Difficulty With Chewing/Swallowing Prior to Admission No Food Allergies No Food Intolerances No Usual Diet At Home 2gm NA Usual Appetite poor Cultural/Ethnic/Mormon Considerations DWAYNE Method Of Calculation 56 KG IBW Calories/Kcals/Kg 30-35 Kcals Calculated 4728-4261 Protein - g/kg 1.2-1.5 Protein Calculated 67-84 Fluid ml/kg 25-30 Fluid Calculated 1101-7453 Abdominal Distention No Gastrointestinal Symptoms None Last BM ON FLEXISEAL Chewing/Swallowing NPO Nutrition Tolerance Comments NPO Nutrition Problem #1 Inadequate nutritional intake Nutrition Intervention/Recommendation #1 Start TF NOVASOURCE RENAL @ 10 CCS/ HR AND INCREASE AFTER 12 HRS BY 15 MLS Q6 TO REACH GOAL VOLUME OF 45 CCS TO PROVIDED 2160 KCAL Etiology #1 CURRENT CLINICAL CONDITION Signs/Symptoms #1 WAS NPO SINCE 10/03 Nutrition Problem #2 Altered skin Nutrition Intervention/Recommendation #2 Provide nutrition supporT Etiology #2 bedridden. Poor nutrition vs other Signs/Symptoms #2 stage 2 on sacrum Expected Outcomes/Goals Start nutrition support within 1-2 days Wound healing with evidence at least weekly No significant wt changes Addendum: 10/08/16 at [address] Amended: Links added.
--- NOTE | 2016-10-08 19:10 | NUR ---
Pt.was seen by ADAIR FERRERA MD,no changes in pt.condition.
--- NOTE | 2016-10-08 20:00 | NUR ---
Awake, alert. Intubated on vent and appears comfortable on current vent settings. No weaning since intubated 6 days ago. Off pressors and maintaining stable paced rhythm and VS. Had dialysis today and 2.5L was pulled out. Still NPO. Await confirmation of OG tube placement per KUB so feeding can be started. Please see CCU flowsheet for full assessment and clinical data.
--- NOTE | 2016-10-08 20:10 | NUR ---
and caregiver at bedside for visit. Pt alert and interacting with family. Condition update given; family appreciative of care and info.
[2016-10-08] MEDS: LEVETIRACETAM IV 500 MG in IV DEXTROSE 5% 100 ML IV SCH (20:47)
[2016-10-08] MEDS: POLYVINYL ALCOHOL OPHT DROPS 15 ML BOTTLE EACHEYE PRN (20:50)
--- NOTE | 2016-10-08 21:00 | NUR ---
KUB shows OG tube in stomach. Tube feeding Renal Novasource started at 10 ml/hr to run for 12 hours as ordered; goal 45 ml/hr. Aspiration precautions observed at all times.
[2016-10-08] MEDS: CEFEPIME HCL 0.5 G in IV DEXTROSE 5% 50 ML IV SCH (21:07)
[2016-10-08] MEDS: NOVASOURCE RENAL 1000 ML LIQUID GT PRN (21:08)
[2016-10-08] MEDS: INSULIN REGULAR, HUMAN 300 UNIT/3 ML VIAL SQ PRN (23:32)
--- NOTE | 2016-10-08 23:40 | NUR ---
Received pt orally intubated with 7.5 ETT ~21cm at lip line, on Marlow vent with the following settings of AC-14, Vt-500, FIO2-30%. No s/s of respiratory distress noted. Airway care done, pt responded to physical stimuli. Resus. bag at bedside. Vent and alarms on and audible.
[2016-10-09] VITALS (26 sets, daily range): BP systolic 95–129; BP diastolic 37–75
[2016-10-09] MEDS: SODIUM CHLORIDE 4 MEQ/ML VIAL 77 MEQ in IV 10% DEXTROSE 1,000 ML IV PRN (01:44)
--- NOTE | 2016-10-09 03:00 | NUR ---
Pt tolerating tube feeding thus far. Aspiration precautions maintained. Has been sleeping at periodic intervals. VS and rhythm stable.
[2016-10-09] MEDS: [UNRECOGNIZED DRUG - OTHER] IV SCH ×3 (05:34→21:44)
[2016-10-09] MEDS: VANCOMYCIN FOR PO/GT/NG USE PO SCH ×4 (05:34→23:17)
[2016-10-09] MEDS: METRONIDAZOLE IV SCH ×3 (05:34→21:44)
[2016-10-09] MEDS: PREMIXED IV SCH ×3 (05:34→21:44)
[2016-10-09 05:50] LABS: CALCIUM 7.2 mg/dL (8.5-10.1); MAGNESIUM 1.5 mg/dL (1.8-2.4); PHOSPHOROUS 2.5 mg/dL (2.5-4.9)
[2016-10-09] MEDS: BLOOD SUGAR DIAGNOSTIC 1 EACH STRIP VI SCH ×3 (05:57→17:21)
[2016-10-09] MEDS: POLYVINYL ALCOHOL OPHT DROPS 15 ML BOTTLE EACHEYE PRN (05:58)
[2016-10-09 06:17] LABS: CREATININE 2.6 mg/dL (0.6-1.3); POTASSIUM 2.7 mmol/L (3.5-5.1)
[2016-10-09 07:38] LABS: BASOPHILS % (AUTO) 0.5 % (0.0-2.0); EOSINOPHILS # (AUTO) 0.1 K/uL (0.0-0.7); EOSINOPHILS % (AUTO) 0.9 % (0.0-7.0); LYMPHOCYTES # (AUTO) 0.9 K/uL (0.8-4.8); LYMPHOCYTES % (AUTO) 11.3 % (20.5-51.5); MEAN CORPUSCULAR HEMOGLOBIN 30.1 uug (27.0-31.0); MEAN CORPUSCULAR HGB CONC 35 g/dL (32.0-37.0); MEAN CORPUSCULAR VOLUME 87.3 fL (81.0-99.0); MONOCYTES # (AUTO) 0.3 K/uL (0.1-1.30); MONOCYTES % (AUTO) 3.6 % (0.0-11.0); NEUTROPHILS # (AUTO) 6.9 K/uL (1.8-8.9); NEUTROPHILS % (AUTO) 83.7 % (38.5-71.5); RED CELL DISTRIBUTION WIDTH 15.3 % (11.5-14.5); WHITE BLOOD COUNT (AUTO) 8.2 K/uL (4.0-11.2)
[2016-10-09 07:44] LABS: HEMOGLOBIN 7.4 g/dL (12.0-16.0); RED BLOOD CELL COUNT(AUTO) 2.44 MIL/uL (4.20-5.40)
[2016-10-09 07:45] LABS: HEMATOCRIT 21.3 % (37.0-47.0); PLATELET COUNT (AUTO) 8 K/uL (150-450)
[2016-10-09 07:51] LABS: LYMPHOCYTES % (MANUAL) 15 % (20-40); MONOCYTES % (MANUAL) 5 % (2-10); NEUTROPHILS % (MANUAL) 80 % (42-75); PLATELET ESTIMATE MARKED DECREASED
[2016-10-09 07:53] LABS: ANISOCYTOSIS 2+; HYPOCHROMASIA 2+
[2016-10-09 07:54] LABS: OVALOCYTES 1+; TARGET CELLS 1+
[2016-10-09 08:03] LABS: ABG BASE EXCESS -2.1 mmol/L; ABG HCO3 20.5 mmol/L; ABG PH 7.498 (7.350-7.450); ABG PO2 113.5 mmHg (75.0-100.0); ABG SITE RIGHT RADIAL; ABG TOTAL HEMOGLOBIN 8.2 G/dL (12.0-16.0); COHb 1.6 % (0.5-1.5); MetHb 0.2 % (0.0-1.5); O2Hb 96.2 % (94.0-97.0); VENT MODE VENT - A/C; VT, ABG 500 mL
[2016-10-09] MEDS: PANTOPRAZOLE SODIUM 40 MG VIAL IV SCH ×2 (08:31→20:41)
[2016-10-09] MEDS: CHOLECALCIFEROL 1,000 UNIT TABLET PO SCH (08:31)
[2016-10-09] MEDS: PROPAFENONE HCL 150 MG TABLET PO SCH ×2 (08:31→17:15)
[2016-10-09] MEDS: Z GUARD REMEDY PASTE 57 GM TUBE TOP SCH ×2 (08:32→20:41)
[2016-10-09] MEDS ORDERED: MAGNESIUM SULFATE/D5W 100 ML IV SCH (08:45)
--- NOTE | 2016-10-09 09:00 | NUR ---
Tube feeding increase to 25cc/hr as ordered.
[2016-10-09] MEDS: POTASSIUM CHLORIDE 50 ML IV SCH ×4 (09:04→12:47)
--- NOTE | 2016-10-09 09:10 | NUR ---
Dr. Arvizu int he unit to see patient, full report given orders to decrease Vent rate to 12 received RT. notified.
--- NOTE | 2016-10-09 09:44 | NUR ---
RECEIVED PT STABLE ON VENT ESPARZA WITH SETTINGS OF AC 14,VT 500 AND FIO2 30%. O2 SATURATION IS 96 TO 100%. ORAL CARE DONE. ATTEMPTED TO MOVE ET TUBE TO THE LEFT SIDE BUT NOTICED THAT SHE HAD A SORE ON THAT SIDE SO IT WAS MOVED BACK CLOSE TO THE ORIGINAL PLACE ON THE RIGHT SIDE. ABG DRAWN WITH RESULT HANDED TO GRICEL BRICEÑO.
--- NOTE | 2016-10-09 09:48 | NUR ---
DECREASED RESPIRATORY RATE TO [address] OROZCO.
--- NOTE | 2016-10-09 10:30 | NUR ---
Dr. Marquis in the unit to see patient, full report given. No orders received.
[2016-10-09] MEDS: INSULIN REGULAR, HUMAN 300 UNIT/3 ML VIAL SQ PRN ×2 (12:12→17:24)
[2016-10-09] MEDS: MICAFUNGIN SODIUM 100 MG in IV NORMAL SALINE 100 ML IV SCH (12:54)
--- NOTE | 2016-10-09 15:00 | NUR ---
Tube feeding rate increased to 40cc/hr as ordered.
--- NOTE | 2016-10-09 15:02 | NUR ---
Dr. samuel in the unit to see patient, full report given.
--- NOTE | 2016-10-09 15:04 | NUR ---
Cas AGUIRRE Infectious disease in the unit to see patient, full report given.
--- NOTE | 2016-10-09 15:37 | NUR ---
Clinical Pharmacy Note: Vancomycin Dosing per Pharmacy Subjective: Vancomycin IV to continue on this dialysis patient for worsening of sepsis (per ID note). Objective: BUN 20/Scr 2.6 WBC 8.2 Temperature 97.4 Assessment/Plan: HD not scheduled, per HD atomic physics teacher, will be due for tomorrow. No dose given today, pre-HD level ordered with tomorrow am labs Will check for HD session tomorrow and if level ok, re-dose after HD. Will continue to dose per dialysis protocol. Will follow daily.
--- NOTE | 2016-10-09 16:51 | NUR ---
PM care provided patient tolerating it poorly rectal tube noted with tarry sediments, of which primary MD is aware.
--- NOTE | 2016-10-09 19:44 | NUR ---
Pt rec'd on Marlow settings AC 12, VT 500, FIO2-30%. 7.5 ETT patent and secure at approx. 22cm at the right lip. No resp. distress noted at this time. Pt to be monitored throughout the shift. Oral care done. Marlow alarm parameters have been checked and remain audible. BVM at bedside.
--- NOTE | 2016-10-09 20:00 | NUR ---
Comfortable on current vent settings. Resp easy and regular. Minimal wean today with rate decreased to 12/min. Minimal secretions with suctioning. Stable rhythm and VS. Tube feeding well tolerated. Aspiration precautions observed at all times with HOB up. Nursing comfort measures observed. No family visits this pm. Please see CCU flowsheet for full assessment and clinical data.
[2016-10-09] MEDS: LEVETIRACETAM IV 500 MG in IV DEXTROSE 5% 100 ML IV SCH (20:41)
[2016-10-09] MEDS: CEFEPIME HCL 0.5 G in IV DEXTROSE 5% 50 ML IV SCH (21:03)
[2016-10-09] MEDS: NOVASOURCE RENAL 1000 ML LIQUID GT PRN (21:03)
--- NOTE | 2016-10-09 22:00 | NUR ---
Tube feeding was advanced to 45 ml/hr (at goal rate) at 2100 and pt continues to tolerate feeding well. Will continue to monitor.
[2016-10-10] VITALS (22 sets, daily range): BP systolic 91–139; BP diastolic 31–74
[2016-10-10] MEDS: BLOOD SUGAR DIAGNOSTIC 1 EACH STRIP VI SCH ×5 (00:06→23:48)
[2016-10-10] MEDS: INSULIN REGULAR, HUMAN 300 UNIT/3 ML VIAL SQ PRN ×5 (00:08→23:51)
[2016-10-10] MEDS: [UNRECOGNIZED DRUG - OTHER] IV SCH ×3 (05:30→22:00)
[2016-10-10] MEDS: METRONIDAZOLE IV SCH ×3 (05:30→22:00)
[2016-10-10] MEDS: PREMIXED IV SCH ×3 (05:30→22:00)
[2016-10-10] MEDS: VANCOMYCIN FOR PO/GT/NG USE PO SCH ×4 (05:30→23:47)
--- NOTE | 2016-10-10 05:40 | NUR ---
PT STILL ON CONT ESPARZA VENT WITH 7.5 ET/TUBE IN PLACE AND 22CM LIP LINE WITH CURRENT VENT SETTINGS, A/C 12, VT 500ML, 30%, PT DOES ASSIST AT TIMES, IS SEMI RESPONSIVE, SUCTIONED LIGHT PALE YELL TINGE SECRETIONS,, WITH GOOD COUGH EFFORT, CHANGE HME AND UMANA ,WITH ORAL CARE DONE, NO VENT CHANGES MADE AT THIS TIME, ALL ALARMS OK, AMBU BAG AT BEDSIDE, ABG TO BE DONE ON DAY SHIFT, WITH ADEQUATE VENTILATION. Ameya MARTINEZ RCP Addendum: 10/10/16 at 0543 by WILLIAM MARTINEZ RT Amended: Links added.
[2016-10-10] MEDS: POLYVINYL ALCOHOL OPHT DROPS 15 ML BOTTLE EACHEYE PRN (05:59)
--- NOTE | 2016-10-10 06:00 | NUR ---
Uneventful, stable night. Continues to tolerate tube feedings well. Remains hemodynamically stable. Lab and CXR results pending. Nursing comfort measures maintained. Please see CCU flowsheet for trends and clinical data. No family inquiries this shift.
--- NOTE | 2016-10-10 06:10 | NUR ---
it analyst here for dialysis procedure.
[2016-10-10 07:17] LABS: BASOPHILS % (AUTO) 0.1 % (0.0-2.0); EOSINOPHILS # (AUTO) 0.1 K/uL (0.0-0.7); EOSINOPHILS % (AUTO) 0.9 % (0.0-7.0); HEMOGLOBIN 8.4 g/dL (12.0-16.0); LYMPHOCYTES # (AUTO) 1.1 K/uL (0.8-4.8); LYMPHOCYTES % (AUTO) 8.6 % (20.5-51.5); MEAN CORPUSCULAR HEMOGLOBIN 29.8 uug (27.0-31.0); MEAN CORPUSCULAR HGB CONC 34 g/dL (32.0-37.0); MONOCYTES # (AUTO) 0.4 K/uL (0.1-1.30); MONOCYTES % (AUTO) 3.3 % (0.0-11.0); NEUTROPHILS # (AUTO) 10.9 K/uL (1.8-8.9); NEUTROPHILS % (AUTO) 87.1 % (38.5-71.5); RED CELL DISTRIBUTION WIDTH 15.5 % (11.5-14.5)
[2016-10-10] MEDS ORDERED: ALBUMIN HUMAN 25% 100 ML IV ONE (07:30)
[2016-10-10] MEDS ORDERED: ALBUMIN HUMAN 25% 50 ML IV ONE (07:30)
[2016-10-10 07:32] LABS: ALBUMIN 1.7 g/dL (3.4-5.0); BILIRUBIN,TOTAL 2.7 mg/dL (0.2-1.0); CALCIUM 7.5 mg/dL (8.5-10.1); MAGNESIUM 1.7 mg/dL (1.8-2.4); PHOSPHOROUS 2.5 mg/dL (2.5-4.9); POTASSIUM 3.2 mmol/L (3.5-5.1); TOTAL PROTEIN, SERUM 3.7 g/dL (6.4-8.2)
[2016-10-10 07:34] LABS: CREATININE 2.7 mg/dL (0.6-1.3)
--- NOTE | 2016-10-10 07:34 | NUR ---
At this time albumin 25% total of 100cc administered by grease worker Manda. Medications handed to him. current blood pressure 129/46 after 500 cc/of normal saline bolus given by him as reported.
[2016-10-10 07:38] LABS: RED BLOOD CELL COUNT(AUTO) 2.81 MIL/uL (4.20-5.40); WHITE BLOOD COUNT (AUTO) 12.5 K/uL (4.0-11.2)
[2016-10-10 07:39] LABS: HEMATOCRIT 24.5 % (37.0-47.0); PLATELET COUNT (AUTO) 65 K/uL (150-450)
[2016-10-10] MEDS: PANTOPRAZOLE SODIUM 40 MG VIAL IV SCH ×2 (08:15→20:39)
[2016-10-10] MEDS: PROPAFENONE HCL 150 MG TABLET PO SCH ×2 (08:16→17:41)
[2016-10-10] MEDS: CHOLECALCIFEROL 1,000 UNIT TABLET PO SCH (08:16)
[2016-10-10] MEDS: Z GUARD REMEDY PASTE 57 GM TUBE TOP SCH ×2 (08:18→20:39)
--- NOTE | 2016-10-10 08:30 | NUR ---
Pt received in semi carmona position, orally intubated and receiving continuous mechanical ventilation. Pt is orally intubated with a 7.5 ETT secured at 22cm lip line. ETT secured with AnchorFast. No skin deterioration noted around placement of AnchoFast. Pt is on Marlow vent with settings of A/C-12, VT-500, FIO2-30%. Tolerating vent settings well. SpO2-99% No respiratory distress noted. Vent alarm parameters checked, on and audible. ETT left in Center of mouth due to cuts on both sides of bottom lip. Oral care done. HME changed. Vent plugged into red emergency outlet. Bag/valve/mask at bedside.
--- NOTE | 2016-10-10 08:46 | NUR ---
VIVIENNE drawn and results reported to BRITTNY Lopez.
[2016-10-10 08:50] LABS: ABG BASE EXCESS 1.3 mmol/L; ABG HCO3 24.1 mmol/L; ABG PCO2 30.6 mmHg (35.0-45.0); ABG PH 7.515 (7.350-7.450); ABG PO2 120.4 mmHg (75.0-100.0); ABG SITE LEFT RADIAL; ABG TOTAL HEMOGLOBIN 7.5 G/dL (12.0-16.0); COHb 2.2 % (0.5-1.5); MetHb 0.7 % (0.0-1.5); O2Hb 95.7 % (94.0-97.0); VENT MODE VENT - A/C; VT, ABG 500 mL
[2016-10-10 10:07] LABS: BAND % (MANUAL) 10 % (0-10); EOSINOPHILS % (MANUAL) 1 % (0-8); LYMPHOCYTES % (MANUAL) 4 % (20-40); METAMYELOCYTES % 1 % (0-1); MONOCYTES % (MANUAL) 3 % (2-10); MYELOCYTES % 1 % (0-0); NEUTROPHILS % (MANUAL) 80 % (42-75)
[2016-10-10 10:10] LABS: ANISOCYTOSIS 1+
[2016-10-10 10:11] LABS: OVALOCYTES 1+; TARGET CELLS 1+
[2016-10-10] MEDS: MICAFUNGIN SODIUM 100 MG in IV NORMAL SALINE 100 ML IV SCH (12:46)
--- NOTE | 2016-10-10 16:22 | NUR ---
Clinical Pharmacy Note: Vancomycin Dosing per Pharmacy Subjective: Vancomycin IV to continue on this dialysis patient for worsening of sepsis (per ID note). Objective: BUN 22/Scr 2.7 WBC 12.5 Temperature 97.6 pre-HD level: 21 Assessment/Plan: HD in am today, due to pre-HD level, no dose was given today. Will check for HD order and order pre-HD level as appropriate. Will continue to dose per dialysis protocol. Will follow daily.
[2016-10-10] MEDS: SODIUM CHLORIDE 4 MEQ/ML VIAL 77 MEQ in IV 10% DEXTROSE 1,000 ML IV PRN (18:15)
--- NOTE | 2016-10-10 19:40 | NUR ---
RECEIVED PATIENT ON CONTINUOUS VENT AC 12 VT 500 FIO2 30%. ETT 7.5 SECURED AT 22 CM LIPLINE. SUCTION SMALL AMOUNT THICK WHITE SECRETIONS. ORAL CARE DONE. VENT CHECKED, ALARMS WORKING WELL AND AUDIBLE. NO VENT CHANGES MADE AT THIS TIME. WILL CONTINUE TO MONITOR.
[2016-10-10] MEDS: CEFEPIME HCL 0.5 G in IV DEXTROSE 5% 50 ML IV SCH (20:38)
[2016-10-10] MEDS: LEVETIRACETAM IV 500 MG in IV DEXTROSE 5% 100 ML IV SCH (20:39)
--- NOTE | 2016-10-10 21:00 | NUR ---
ETT SECURED VIA ANCHORFAST MIDLINE. LEFT LOWER LIP AND RIGHT LOWER LIP WITH CUTS. NO REDNESS OR SKIN TEAR NOTED AROUND ANCHORFAST.
[2016-10-11] VITALS (24 sets, daily range): BP systolic 90–129; BP diastolic 35–75
[2016-10-11] MEDS: VANCOMYCIN FOR PO/GT/NG USE PO SCH ×4 (05:46→23:46)
[2016-10-11] MEDS: METRONIDAZOLE IV SCH ×3 (05:47→21:02)
[2016-10-11] MEDS: BLOOD SUGAR DIAGNOSTIC 1 EACH STRIP VI SCH ×4 (05:47→23:52)
[2016-10-11] MEDS: PREMIXED IV SCH ×3 (05:47→21:02)
[2016-10-11] MEDS: [UNRECOGNIZED DRUG - OTHER] IV SCH ×3 (05:47→21:02)
[2016-10-11] MEDS: INSULIN REGULAR, HUMAN 300 UNIT/3 ML VIAL SQ PRN ×4 (05:49→23:56)
[2016-10-11 06:19] LABS: ALBUMIN 1.8 g/dL (3.4-5.0); BILIRUBIN,TOTAL 3.1 mg/dL (0.2-1.0); CALCIUM 7.3 mg/dL (8.5-10.1); MAGNESIUM 1.5 mg/dL (1.8-2.4); PHOSPHOROUS 1.8 mg/dL (2.5-4.9); TOTAL PROTEIN, SERUM 3.7 g/dL (6.4-8.2)
[2016-10-11 06:20] LABS: CREATININE 2.1 mg/dL (0.6-1.3)
[2016-10-11 06:22] LABS: POTASSIUM 2.8 mmol/L (3.5-5.1)
--- NOTE | 2016-10-11 07:00 | NUR ---
PT REC'D ORALLY INTUBATED 7.5 ETT SECURED WITH A TUBE CARMONA AT APPROX 22 LIP-LINE. ETT CUFF IS INFLATED, NO LEAK DETECTED USING MINIMAL OCCLUDING VOLUME TECH. PT ON CONT VENT SUPPORT WITH WEANING ORDERS FOR THIS AM. CURRENT VENT PARAMETERS AC12 500VT PEEP0 30%FiO2 TOLERATED WELL AT THIS TIME. 0700 ORDER FOR WEANING SIMV4/PS10 WITH ABG'S TO FOLLOWING IN 2HRS. DIMINISHED TI EQUAL BS. NOTED. LAVAGE/SXN'ING PRN WITH SM/MOD THICK YELLOWING PALE SECRETIONS TO NOTE. BVM AT BEDSIDE. VENT ALARMS CHECKED AND RESET. CONT TO MONITOR AND REPORT ANY CHANGES IN CONDITION.
[2016-10-11] MEDS ORDERED: POTASSIUM CHLORIDE 20 MEQ POWDER PACKET PO ONE (07:30)
[2016-10-11 07:41] LABS: BASOPHILS % (AUTO) 0.1 % (0.0-2.0); EOSINOPHILS # (AUTO) 0.1 K/uL (0.0-0.7); EOSINOPHILS % (AUTO) 0.8 % (0.0-7.0); LYMPHOCYTES # (AUTO) 0.7 K/uL (0.8-4.8); MEAN CORPUSCULAR HEMOGLOBIN 30.4 uug (27.0-31.0); MEAN CORPUSCULAR HGB CONC 34 g/dL (32.0-37.0); MEAN CORPUSCULAR VOLUME 88.4 fL (81.0-99.0); MONOCYTES # (AUTO) 0.2 K/uL (0.1-1.30); MONOCYTES % (AUTO) 2.3 % (0.0-11.0); NEUTROPHILS # (AUTO) 9.3 K/uL (1.8-8.9); NEUTROPHILS % (AUTO) 89.8 % (38.5-71.5); RED CELL DISTRIBUTION WIDTH 15.5 % (11.5-14.5); WHITE BLOOD COUNT (AUTO) 10.3 K/uL (4.0-11.2)
[2016-10-11 07:42] LABS: HEMATOCRIT 20.6 % (37.0-47.0)
[2016-10-11 07:45] LABS: HEMOGLOBIN 7.1 g/dL (12.0-16.0); RED BLOOD CELL COUNT(AUTO) 2.33 MIL/uL (4.20-5.40)
[2016-10-11 07:46] LABS: PLATELET COUNT (AUTO) 7 K/uL (150-450)
[2016-10-11] MEDS: Z GUARD REMEDY PASTE 57 GM TUBE TOP SCH ×2 (08:00→21:03)
[2016-10-11] MEDS: PANTOPRAZOLE SODIUM 40 MG VIAL IV SCH ×2 (08:00→21:05)
[2016-10-11] MEDS: CHOLECALCIFEROL 1,000 UNIT TABLET PO SCH (08:00)
[2016-10-11] MEDS: PROPAFENONE HCL 150 MG TABLET PO SCH ×2 (08:00→17:22)
--- NOTE | 2016-10-11 08:55 | NUR ---
At this time patient placed back to A/C 12, TV 500, and FIO2 of 30%. due to tachypnea and distress noted. ABG's done at this time.
--- NOTE | 2016-10-11 09:00 | NUR ---
FOLLOWING ABG DRAW, PT PLACED BACK TO PREVIOUS SETTINGS PER MD ORDER FOR DISTRESS. RR>30BPM AT THIS TIME.
[2016-10-11 09:06] LABS: ABG BASE EXCESS -0.9 mmol/L; ABG HCO3 22.2 mmol/L; ABG PCO2 30.2 mmHg (35.0-45.0); ABG PH 7.484 (7.350-7.450); ABG PO2 119.7 mmHg (75.0-100.0); ABG SITE RIGHT RADIAL; ABG TOTAL HEMOGLOBIN 7.8 G/dL (12.0-16.0); COHb 1.8 % (0.5-1.5); MetHb 0.2 % (0.0-1.5); O2Hb 96.4 % (94.0-97.0); VENT MODE VENT - SIMV4/PS10; VT, ABG 500 mL
--- NOTE | 2016-10-11 09:38 | NUR ---
Dr. Zabala in the unit to see patient, full report given and also reminded of critical labs. also informed of pt's DPOA attempts to communicate with him and arrange meeting to discuss comfort measures.
[2016-10-11 09:46] LABS: BAND % (MANUAL) 7 % (0-10); EOSINOPHILS % (MANUAL) 1 % (0-8); LYMPHOCYTES % (MANUAL) 6 % (20-40); MONOCYTES % (MANUAL) 1 % (2-10); NEUTROPHILS % (MANUAL) 85 % (42-75)
--- NOTE | 2016-10-11 09:47 | NUR ---
Dr. Zabala also called out of state DPOA Me, Cas Carson and have a long conversation updating him of plan of care and pt's current condition.
[2016-10-11 09:48] LABS: PLATELET ESTIMATE MARKED DECREASED
[2016-10-11 09:49] LABS: ANISOCYTOSIS 1+
[2016-10-11 09:50] LABS: OVALOCYTES 1+; TARGET CELLS 1+
--- NOTE | 2016-10-11 11:00 | NUR ---
Both Cardiology and Pulmonary Md in the unit to see patient; report given. see orders.
[2016-10-11] MEDS: LOPERAMIDE HCL 2 MG CAPSULE GT PRN ×2 (11:49→23:44)
--- NOTE | 2016-10-11 12:04 | NUR ---
Infectious disease services in the unit to see patient, report given.
[2016-10-11] MEDS ORDERED: NEUTRA PHOS PACKET GT ONE (12:45)
[2016-10-11] MEDS ORDERED: MAGNESIUM SULFATE/D5W 100 ML IV SCH (12:45)
[2016-10-11] MEDS: MICAFUNGIN SODIUM 100 MG in IV NORMAL SALINE 100 ML IV SCH (12:46)
--- NOTE | 2016-10-11 16:30 | NUR ---
Clinical Pharmacy Note: Vancomycin Dosing per Pharmacy Subjective: Vancomycin IV to continue on this dialysis patient for worsening of sepsis (per ID note). Objective: BUN 14/Scr 2.1 WBC 10.3 Temperature 98.8 Assessment/Plan: No HD today per dialysis center(Plan on it tomorrow) No dose was given today. Will check for HD order and order pre-HD level as appropriate. Will continue to dose per dialysis protocol. Will follow daily.
--- NOTE | 2016-10-11 18:28 | NUR ---
Nutritional Risk High Diagnosis ABD PAIN Pertinent Medical Surgical History ISCHEMIC STROKE HTN AFIB ANGINA CAD PNA GI BLEED RENAL FAILURE DM SYSTEMIC LUPUS ERYTHEMATOSUS Subjective Information LOW PLT LEVELS AND H/H, CONTINUES TO BE ON VENT SUPPORT,NO HD TODAY SCHEDULED FOR TOMORROW, NO OUTPUT FROM LAST HD-TOLERATING TF- TF INTAKE FOR LAST 3 DAYS-608 MLS WHICH IS 56% OF GOAL VOLUME. Flagyl, SSI, cefipime, D5% sodium bicarb @ 75mls/HR Pertinent Labs 10/11:H/H-7.1/20.6 (L/L), K+ 2.8 (L), Cr-2.1 (H), BG-192 (H) Ca-7.3 (L), PHOS-1.8 (L),ALB-1.8 (L) 10/08: WBC-13.1 (H), H/H-7.9/23.0 (L/L), K+3.4 (L), BUN/Cr-28/3.4 (H/H), BG-115 (H), Ca-6.7 (L)ALB-1.5 (L) Intake and Output 595 MLS ON 10/10 Height (Feet) 5 feet Height (Inches) 5.00 inches Patient Height 65 in Weight (Pounds) 168 pounds (WT FLUCTUATIONS NOTED W/ HD) Skin Breakdown Yes Skin Integrity Comment David: 11: Partial Thickness Loss Hampton Body Weight 125 lb % Hampton Body Weight 134 Body Mass Index 28.0 No Food Allergies No Food Intolerances No Usual Diet At Home 2gm NA Method Of Calculation 56 KG IBW Calories/Kcals/Kg 30-35 Kcals Calculated 2738-3051 Protein - g/kg 1.2-1.5 Protein Calculated 67-84 Fluid ml/kg 25-30 Fluid Calculated 6627-6653 Abdominal Distention No Gastrointestinal Symptoms None Last BM ON FLEXISEAL-CDIFF Chewing/Swallowing NPO Nutrition Tolerance Comments NPO Nutrition Problem #1 Inadequate nutritional intake Nutrition Intervention/Recommendation #1 TOLERATE TF AT GOAL RATE Etiology #1 CURRENT CLINICAL CONDITION Signs/Symptoms #1 AVERAGE TF INTAKE FOR LAST 3 DAYS HAS BEEN 56% OF THE GOAL Nutrition Problem #2 Altered skin Nutrition Intervention/Recommendation #2 Provide nutrition support Etiology #2 bedridden. Poor nutrition vs other Signs/Symptoms #2 stage 2 on sacrum Expected Outcomes/Goals Tolerate TF at goal rate Wound healing with evidence at least weekly No significant wt changes Addendum: 10/11/16 at [address] Amended: Links added.
--- NOTE | 2016-10-11 20:08 | NUR ---
Pt received on Marlow vent with settings of AC 12, VT 500, FiO2 30%. Pt is orally intubated with a 7.5 ETT, secured with Embarrass Fast at approximately 22cm at the lip, ETT cuff is inflated. Suctioned and lavaged pt with small amount of pale secretions. Oral care done. Ambu-bag at bedside. Vent alarm parameters set, functioning and audible. Will continue to monitor pt throughout shift.
[2016-10-11] MEDS: LEVETIRACETAM IV 500 MG in IV DEXTROSE 5% 100 ML IV SCH (21:03)
[2016-10-11] MEDS: CEFEPIME HCL 0.5 G in IV DEXTROSE 5% 50 ML IV SCH (21:03)
[2016-10-12] VITALS (30 sets, daily range): BP systolic 91–185; BP diastolic 44–101
[2016-10-12 05:27] LABS: ALBUMIN 1.6 g/dL (3.4-5.0); BILIRUBIN,TOTAL 2.8 mg/dL (0.2-1.0); CALCIUM 7.1 mg/dL (8.5-10.1); MAGNESIUM 1.8 mg/dL (1.8-2.4); PHOSPHOROUS 1.8 mg/dL (2.5-4.9); TOTAL PROTEIN, SERUM 3.6 g/dL (6.4-8.2)
[2016-10-12 05:37] LABS: EOSINOPHILS # (AUTO) 0.1 K/uL (0.0-0.7); EOSINOPHILS % (AUTO) 0.7 % (0.0-7.0); HEMATOCRIT 22.9 % (37.0-47.0); HEMOGLOBIN 7.9 g/dL (12.0-16.0); LYMPHOCYTES # (AUTO) 1.3 K/uL (0.8-4.8); LYMPHOCYTES % (AUTO) 9.6 % (20.5-51.5); MEAN CORPUSCULAR HGB CONC 34 g/dL (32.0-37.0); MEAN CORPUSCULAR VOLUME 87.5 fL (81.0-99.0); MONOCYTES # (AUTO) 0.8 K/uL (0.1-1.30); MONOCYTES % (AUTO) 5.6 % (0.0-11.0); NEUTROPHILS # (AUTO) 11.7 K/uL (1.8-8.9); NEUTROPHILS % (AUTO) 84.1 % (38.5-71.5); RED BLOOD CELL COUNT(AUTO) 2.62 MIL/uL (4.20-5.40); RED CELL DISTRIBUTION WIDTH 15.5 % (11.5-14.5); WHITE BLOOD COUNT (AUTO) 13.9 K/uL (4.0-11.2)
[2016-10-12] MEDS: VANCOMYCIN FOR PO/GT/NG USE PO SCH ×4 (05:48→23:47)
[2016-10-12] MEDS: [UNRECOGNIZED DRUG - OTHER] IV SCH ×3 (05:49→21:55)
[2016-10-12] MEDS: METRONIDAZOLE IV SCH ×3 (05:49→21:55)
[2016-10-12] MEDS: PREMIXED IV SCH ×3 (05:49→21:55)
[2016-10-12 05:59] LABS: PLATELET COUNT (AUTO) 32 K/uL (150-450)
[2016-10-12 06:00] LABS: CREATININE 2.3 mg/dL (0.6-1.3); POTASSIUM 2.8 mmol/L (3.5-5.1)
[2016-10-12] MEDS: BLOOD SUGAR DIAGNOSTIC 1 EACH STRIP VI SCH ×4 (06:02→23:53)
[2016-10-12] MEDS: INSULIN REGULAR, HUMAN 300 UNIT/3 ML VIAL SQ PRN ×4 (06:03→23:53)
[2016-10-12] MEDS: NOVASOURCE RENAL 1000 ML LIQUID GT PRN (06:04)
[2016-10-12 06:09] LABS: BAND % (MANUAL) 2 % (0-10); LYMPHOCYTES % (MANUAL) 8 % (20-40); MONOCYTES % (MANUAL) 5 % (2-10); NEUTROPHILS % (MANUAL) 85 % (42-75)
[2016-10-12 06:12] LABS: ANISOCYTOSIS 1+; PLATELET ESTIMATE MARKED DECREASED; TARGET CELLS 1+
--- NOTE | 2016-10-12 07:45 | NUR ---
PT REC'D ORALLY INTUBATED 7.5 ETT SECURED WITH A TUBE CARMONA AT APPROX 21 LIP-LINE. ETT CUFF INFLATED, NO LEAK USING MINIMAL OCCLUDING VOLUME TECH. PT ON CONT VENT SUPPORT. NO WEANING ORDERS FOR THIS AM, ABG'S TO BE DRAWN. CURRENT VENT PARAMETERS AC12 500VT PEEP0 30%FiO2 TOLERATING WELL AT THIS TIME. BS DIMINISHED TI EQUAL. LAVAGE/SXN'ING PRN WITH SM/MOD THICK YELLOWING PALE SECRETIONS TO NOTE. BVM AT BEDSIDE. VENT ALARMS CHECKED AND RESET. CONT TO MONITOR AND REPORT ANY CHANGES IN CONDITION.
--- NOTE | 2016-10-12 07:45 | NUR ---
seen by dr paulino. orders received for lab draws in am Addendum: 10/12/16 at 1706 by KEON BENITEZ RN Amended: Links added.
[2016-10-12] MEDS: POTASSIUM CHLORIDE 50 ML IV SCH ×4 (08:19→11:33)
[2016-10-12] MEDS: POTASSIUM PHOSPHATE MM 5 MMOL in IV DEXTROSE 5% 100 ML IV SCH ×4 (08:30→13:38)
[2016-10-12] MEDS: PANTOPRAZOLE SODIUM 40 MG VIAL IV SCH ×2 (08:34→21:05)
[2016-10-12] MEDS: Z GUARD REMEDY PASTE 57 GM TUBE TOP SCH ×2 (08:35→21:05)
[2016-10-12] MEDS: PROPAFENONE HCL 150 MG TABLET PO SCH ×2 (08:35→17:27)
[2016-10-12] MEDS: CHOLECALCIFEROL 1,000 UNIT TABLET PO SCH (08:35)
[2016-10-12 08:49] LABS: ABG BASE EXCESS -2.7 mmol/L; ABG HCO3 20.7 mmol/L; ABG PCO2 30.4 mmHg (35.0-45.0); ABG PH 7.452 (7.350-7.450); ABG PO2 112.4 mmHg (75.0-100.0); ABG SITE RIGHT RADIAL; ABG TOTAL HEMOGLOBIN 7.9 G/dL (12.0-16.0); COHb 2.4 % (0.5-1.5); MetHb 0.5 % (0.0-1.5); O2Hb 95.5 % (94.0-97.0); VENT MODE VENT - A/C 12; VT, ABG 500 mL
[2016-10-12] MEDS: SODIUM CHLORIDE 4 MEQ/ML VIAL 77 MEQ in IV 10% DEXTROSE 1,000 ML IV PRN (10:27)
[2016-10-12] MEDS: MICAFUNGIN SODIUM 100 MG in IV NORMAL SALINE 100 ML IV SCH (12:59)
--- NOTE | 2016-10-12 12:59 | NUR ---
WOUND CARE CONSULT/FOLLOW UP: PT SEEN FOR SKIN ASSESSMENT. 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 PT HAS GENERALIZED EDEMA WITH WEEPING TO UPPER EXTREMITIES AND 4+ PITTING EDEMA TO LOWER EXTREMITIES. PT HAS GENERALIZED AREAS OF BRUISING. 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 PT INTUBATED, ON VENTILATOR, ON DIALYSIS. DUE TO MULTIPLE CO-MORBIDITIES, FURTHER SKIN BREAKDOWN MAY BE UNAVOIDABLE. DISCUSSED SKIN PROTECTION AND WOUND CARE WITH NURSING STAFF. ALL SKIN PROTECTION MEASURES IN PLACE INCLUDING FIRST STEP MATTRESS. PT HAS LAUGHLIN CATH AND RECTAL TUBE. WILL SEE PRN. IN AGREEMENT WITH PLAN OF CARE. Addendum: 10/12/16 at 1302 by EUN RETANA RN Amended: Links added.
--- NOTE | 2016-10-12 13:00 | NUR ---
seen by dr mortensen no orders received Addendum: 10/12/16 at 1708 by KEON BENITEZ RN Amended: Hermelinda added. Addendum: 10/12/16 at 1709 by KEON BENITEZ RN Amended: Hermelinda added.
[2016-10-12] MEDS: IV NORMAL SALINE 250 ML IV PRN (13:24)
--- NOTE | 2016-10-12 15:45 | NUR ---
seen by dr martinez. orders received Addendum: 10/12/16 at 1709 by KEON BENITEZ RN Amended: Links added.
--- NOTE | 2016-10-12 16:01 | NUR ---
hemodialysis started via right femoral vascular caheter.by JOSE MART . started on levophed drip at 2 mcg/min Addendum: 10/12/16 at 1614 by KEON BENITEZ RN Amended: Links added.
[2016-10-12] MEDS: NOREPINEPHRINE BITARTRATE 16 MG in IV DEXTROSE 5% 500 ML IV PRN (16:16)
--- NOTE | 2016-10-12 16:25 | NUR ---
Clinical Pharmacy Note: Vancomycin Dosing per Pharmacy Subjective: Vancomycin IV to continue on this dialysis patient for worsening of sepsis (per ID note). Objective: BUN 17/Scr 2.3 WBC 13.9 Temperature 98.1 Vancomycin pre HD level 14 Assessment/Plan: Patient is being dialyzed now and will be done around 7pm per dialysis nurse. Vancomycin 1 gram to be given tonight at 2000. Will continue dose by pre-HD random level. Will follow the dialysis schedule daily for further dosing.
--- NOTE | 2016-10-12 16:39 | NUR ---
placed on 100% Fio2 while on hemodialysis secondary to desaturation down to 50%. Addendum: 10/12/16 at 1639 by KEON BENITEZ RN Amended: Links added.
[2016-10-12] MEDS ORDERED: ALBUMIN HUMAN 25% 100 ML IV ONE ×2 (17:00→17:30)
--- NOTE | 2016-10-12 17:06 | NUR ---
seen by dr paulino. orders received for lab draws in am Addendum: 10/12/16 at 1706 by KENO BENITEZ RN Amended: Links added.
--- NOTE | 2016-10-12 19:07 | NUR ---
Received pt orally intubated with 7.5 ETT ~21cm at lip line, on Marlow vent with the following settings of AC-12, Vt-500, FIO2-40% and due to MD order lower FIO2 to 30%, RN notified. No s/s of respiratory distress noted. Airway care done, pt responded to physical stimuli(noticed blood in the sputum, RN notified). Resus. bag at bedside. Vent and alarms checked and reset.
[2016-10-12] MEDS ORDERED: VANCOMYCIN IV 1 G in PREMIXED 0 EACH IV ONE (20:00)
--- NOTE | 2016-10-12 20:00 | NUR ---
S/P Dialysis today, and 2L pulled out. Pt appears fatigued, barely opening eyes. Remains intubated on vent. Comfortable on current settings. Planned repeat weaning attempts in AM. Stable rhythm and VS. Family came for brief visit, condition update given. Family appreciative of care and info. Please see CCU flowsheet for full assessment and clinical data.
[2016-10-12] MEDS: LEVETIRACETAM IV 500 MG in IV DEXTROSE 5% 100 ML IV SCH (21:07)
[2016-10-12] MEDS: CEFEPIME HCL 0.5 G in IV DEXTROSE 5% 50 ML IV SCH (21:25)
[2016-10-13] VITALS (38 sets, daily range): BP systolic 84–152; BP diastolic 25–77
--- NOTE | 2016-10-13 02:00 | NUR ---
Weepy bilateral arms. Skin and wound issues appear worse. Routine skin and wound care rendered per protocol. Kept clean, dry and comfortable at all times.
--- NOTE | 2016-10-13 05:00 | NUR ---
Cont. monitor pt on present vent settings. During the shift no respiratory distress noted. Present vent settings pt tolerated well, no changes made. Sx and lavage prn. HME changed. Pt has weaning order for 7:00 AM. Day shift RT's notified. Oral care done. ETT moved to the left. Resus. bag at bedside. Vent and alarms on and audible.
[2016-10-13 05:27] LABS: EOSINOPHILS # (AUTO) 0.1 K/uL (0.0-0.7); EOSINOPHILS % (AUTO) 0.5 % (0.0-7.0); LYMPHOCYTES # (AUTO) 1.4 K/uL (0.8-4.8); LYMPHOCYTES % (AUTO) 7.3 % (20.5-51.5); MEAN CORPUSCULAR HEMOGLOBIN 30.6 uug (27.0-31.0); MEAN CORPUSCULAR HGB CONC 35 g/dL (32.0-37.0); MEAN CORPUSCULAR VOLUME 87.1 fL (81.0-99.0); MONOCYTES # (AUTO) 1.2 K/uL (0.1-1.30); MONOCYTES % (AUTO) 6.1 % (0.0-11.0); NEUTROPHILS # (AUTO) 16.8 K/uL (1.8-8.9); NEUTROPHILS % (AUTO) 86.1 % (38.5-71.5); RED CELL DISTRIBUTION WIDTH 16.1 % (11.5-14.5); WHITE BLOOD COUNT (AUTO) 19.5 K/uL (4.0-11.2)
[2016-10-13 05:30] LABS: ALBUMIN 2.3 g/dL (3.4-5.0); CALCIUM 7.1 mg/dL (8.5-10.1); MAGNESIUM 1.6 mg/dL (1.8-2.4); PHOSPHOROUS 2.4 mg/dL (2.5-4.9); POTASSIUM 3.2 mmol/L (3.5-5.1); TOTAL PROTEIN, SERUM 3.6 g/dL (6.4-8.2)
[2016-10-13 05:41] LABS: CREATININE 2.3 mg/dL (0.6-1.3)
[2016-10-13 05:48] LABS: RED BLOOD CELL COUNT(AUTO) 1.88 MIL/uL (4.20-5.40)
[2016-10-13 05:49] LABS: HEMATOCRIT 16.4 % (37.0-47.0); HEMOGLOBIN 5.8 g/dL (12.0-16.0); PLATELET COUNT (AUTO) 14 K/uL (150-450)
[2016-10-13 05:52] LABS: BAND % (MANUAL) 4 % (0-10); LYMPHOCYTES % (MANUAL) 5 % (20-40); MONOCYTES % (MANUAL) 5 % (2-10); NEUTROPHILS % (MANUAL) 86 % (42-75)
[2016-10-13 05:54] LABS: ANISOCYTOSIS 2+; PLATELET ESTIMATE MARKED DECREASED; TARGET CELLS 1+
--- NOTE | 2016-10-13 06:00 | NUR ---
Another vent weaning planned for this AM. Brother (DPOA for pt) called in for update. Some critical lab values this AM, await MD to return call. Please see CCU flowsheet for trends and clinical data.
[2016-10-13] MEDS: [UNRECOGNIZED DRUG - OTHER] IV SCH ×3 (06:01→21:56)
[2016-10-13] MEDS: METRONIDAZOLE IV SCH ×3 (06:01→21:56)
[2016-10-13] MEDS: PREMIXED IV SCH ×3 (06:01→21:56)
[2016-10-13] MEDS: VANCOMYCIN FOR PO/GT/NG USE PO SCH ×4 (06:02→23:29)
[2016-10-13] MEDS: BLOOD SUGAR DIAGNOSTIC 1 EACH STRIP VI SCH ×4 (06:09→23:35)
[2016-10-13] MEDS: INSULIN REGULAR, HUMAN 300 UNIT/3 ML VIAL SQ PRN (06:10)
--- NOTE | 2016-10-13 06:50 | NUR ---
Dr. Amy Sanchez returned call, new order to transfuse 2 units PRBCs noted.
--- NOTE | 2016-10-13 07:20 | NUR ---
PT RECEIVED ON ESPARZA VENT, SETTINGS AC 12, VT 500, 30% FIO2. 7.5 ETT IS PATENT AND SECURED WITH ETT CARMONA APPROX 21 CM AT THE LIP. WEANING STARTED PER MD ORDERS, SIMV 4, PS 10. DOING WELL AT THIS TIME. WILL CONTINUE TO MONITOR. ALARMS ARE ON AND AUDIBLE, BVM AT BEDSIDE.
--- NOTE | 2016-10-13 08:00 | NUR ---
FLEXISEAL HAS BLOOD CLOTS AND LIQUID STOOL COLOR OF TUBE FEEDING AND PINK TINGED DUE TO BLEEDING. PATIENT WILL BE TRANSFUSED 2 UNITS OF PRBC.
--- NOTE | 2016-10-13 08:30 | NUR ---
DOCTOR OK IN THE UNIT ROUNDING ON PATIENT. MADE AWARE OF PENDING ORDERS AND ADDITIONAL ABNORMAL LABS.
[2016-10-13 09:07] LABS: ABG BASE EXCESS -6.4 mmol/L; ABG PCO2 25.1 mmHg (35.0-45.0); ABG PH 7.449 (7.350-7.450); ABG PO2 116.9 mmHg (75.0-100.0); ABG SITE RIGHT RADIAL; ABG TOTAL HEMOGLOBIN 5.8 G/dL (12.0-16.0); COHb 2.9 % (0.5-1.5); MetHb 0.6 % (0.0-1.5); O2Hb 94.8 % (94.0-97.0); VENT MODE VENT - SIMV; VT, ABG 500 mL
[2016-10-13] MEDS: PANTOPRAZOLE SODIUM 40 MG VIAL IV SCH ×2 (09:42→20:40)
[2016-10-13] MEDS: PROPAFENONE HCL 150 MG TABLET PO SCH ×2 (09:49→17:09)
[2016-10-13] MEDS: CHOLECALCIFEROL 1,000 UNIT TABLET PO SCH (09:50)
[2016-10-13] MEDS: Z GUARD REMEDY PASTE 57 GM TUBE TOP SCH ×2 (09:50→20:37)
--- NOTE | 2016-10-13 10:50 | NUR ---
DOCTOR NIMO IN UNIT TO SEE PATIENT. PENDING COLLECTION FOR URINE. PATIENT IS STILL ANURIC.
--- NOTE | 2016-10-13 11:25 | NUR ---
DOCTOR OROZCO AND DOCTOR LINK IN THE UNIT TO SEE PATIENT
[2016-10-13] MEDS: NOVASOURCE RENAL 1000 ML LIQUID GT PRN (12:43)
[2016-10-13] MEDS: MICAFUNGIN SODIUM 100 MG in IV NORMAL SALINE 100 ML IV SCH (14:03)
--- NOTE | 2016-10-13 14:30 | NUR ---
PATIENT TEMPERATURE LOW PLACED ON DIDIER HUGGER BLANKET.
[2016-10-13] MEDS ORDERED: MAGNESIUM SULFATE/D5W 100 ML IV SCH (15:00)
[2016-10-13] MEDS ORDERED: NEUTRA PHOS PACKET GT ONE (15:15)
--- NOTE | 2016-10-13 15:52 | NUR ---
Clinical Pharmacy Note: Vancomycin Dosing per Pharmacy Subjective: Vancomycin IV to continue on this dialysis patient for worsening of sepsis (per ID note). Objective: BUN 17/Scr 2.3 WBC 19.5 Temperature 97.8 Assessment/Plan: Will continue to dose by pre-HD level. Patient was dialyzed yesterday and 1 gram was given post dialysis at 1999. Per dialysis center, there will be no dialysis today. No dose will be given today and will continue to follow dialysis schedule and order pre-HD level accordingly. Will follow daily.
[2016-10-13] MEDS ORDERED: POTASSIUM CHLORIDE 50 ML IV SCH (16:00)
--- NOTE | 2016-10-13 16:19 | NUR ---
POST INFUSING PLATELETS CORDIS IJ REMOVED PER DOCTOR TREY ORDERS. SENT TIP FOR CULTURES.
[2016-10-13 19:02] LABS: *BLOOD, URINE 3+ (NEGATIVE); *CLARITY,URINE CLOUDY (CLEAR); *COLOR,URINE AMBER (YELLOW); *KETONES,URINE NEGATIVE (NEGATIVE); *UROBILINOGEN,URINE 0.2 E.U./dl (NORMAL); LEUKOCYTE ESTERASE ,URINE 3+ (NEGATIVE); NITRITE, URINE NEGATIVE (NEGATIVE); UGLUCOSE NEGATIVE (NEGATIVE)
[2016-10-13 19:32] LABS: THYROID STIMULATING HORMONE 1.86 mIU/mL (0.358-3.740)
--- NOTE | 2016-10-13 20:00 | NUR ---
Remains on vent, reportedly tolerated weaning this AM, now back on AC mode. Pt drowsy, eyes barely open. Informed pt that brother called in and noted pt's eyes looked around. Generalized edema, upper ext. weepy. Arms elevated with pillows at all times, kept clean and dry. Received blood and blood products today, no dialysis. OG tube patent, tube feeding was decreased to 25 ml/hr pending re-eval by FNS re: large stools. Another FNS consult requested. Flexiseal output yellow liquid with bloody discoloration. Please see CCU flowsheet for full assessment and clinical data.
[2016-10-13 20:02] LABS: *BILIRUBIN,URIN 2+ (NEGATIVE); *PROTEIN,URINE 3+ (NEGATIVE)
[2016-10-13 20:06] LABS: ICTOTEST POSITIVE (NEGATIVE); SQUAMOUS EPITHELIAL CELL,UR MODERATE /HPF (NONE SEEN); WBC,URINE 80-100 /HPF (0-3); YEAST,URINE MANY /HPF (NONE SEEN)
[2016-10-13] MEDS: LEVETIRACETAM IV 500 MG in IV DEXTROSE 5% 100 ML IV SCH (20:06)
[2016-10-13] MEDS: CEFEPIME HCL 0.5 G in IV DEXTROSE 5% 50 ML IV SCH (20:36)
--- NOTE | 2016-10-13 21:26 | NUR ---
PT ON CONT ESPARZA VENT WITH 7.5 ET/TUBE IN PLACE AND SECURED, WITH CURRENT VENT SETTINGS, A/C 12, VT 500ML, 30% , PT DOES ASSIST AT TIMES, SEMI RESPONSIVE, SUCTIONED LIGHT PALE YELL TINGE SECRETIONS, WITH GOOD COUGH EFFORT, CHECK CUFF, CHANGE HME ,NO VENT CHANGES MADE AT THIS TIME,. Ameya ROJASP Addendum: 10/13/16 at 2128 by WILLIAM MARTINEZ RT Amended: Links added.
--- NOTE | 2016-10-13 23:10 | NUR ---
Monitor trends show lowering BP, thus re-started on Levophed titrating to keep SBP >=100. Will continue to monitor closely.
[2016-10-13] MEDS: NOREPINEPHRINE BITARTRATE 16 MG in IV DEXTROSE 5% 500 ML IV PRN (23:20)
[2016-10-14] VITALS (96 sets, daily range): BP systolic 65–152; BP diastolic 29–100
--- NOTE | 2016-10-14 04:11 | NUR ---
PT ON CONT ESPARZA VENT WITH 7.5 ET/TUBE IN PLACE AND SECURED, WITH SAME CURRENT VENT SETTINGS, A/C 12, VT 500ML, FIO2 @ 30%, PT DOES ASSIST AT TIMES, CHECK CUFF, CHANGE HME, SUCTIONED VERY LIGHT PALE YELL TINGE SECRETIONS, WITH WEAK COUGH EFFORT, ORAL CARE DONE, NO VENT CHANGES MADE AT THIS TIME, ALL ALARMS OK, AMBU BAG AT BEDSIDE, ABG TO BE DONE ON DAY SHIFT. Ameya MARTINEZ RCP Addendum: 10/14/16 at 0414 by WILLIAM MARTINEZ RT Amended: Links added.
[2016-10-14] MEDS: IV NORMAL SALINE 250 ML IV PRN (05:11)
[2016-10-14] MEDS: POLYVINYL ALCOHOL OPHT DROPS 15 ML BOTTLE EACHEYE PRN ×2 (05:22→23:46)
[2016-10-14] MEDS: PREMIXED IV SCH ×3 (05:22→23:00)
[2016-10-14] MEDS: METRONIDAZOLE IV SCH ×3 (05:22→23:00)
[2016-10-14] MEDS: [UNRECOGNIZED DRUG - OTHER] IV SCH ×3 (05:22→23:00)
[2016-10-14] MEDS: VANCOMYCIN FOR PO/GT/NG USE PO SCH ×4 (05:22→23:46)
[2016-10-14] MEDS: BLOOD SUGAR DIAGNOSTIC 1 EACH STRIP VI SCH ×4 (05:36→23:46)
[2016-10-14] MEDS: DEXTROSE 50% 50 ML DISP.SYRIN IV PRN (05:36)
--- NOTE | 2016-10-14 06:30 | NUR ---
Continues to require Levophed for BP maintenance per parameter. Accuchek glucose was 53; D50 1 amp given and BS increased to 141. Will continue to monitor closely.
--- NOTE | 2016-10-14 06:53 | NUR ---
PT RECEIVED ON ESPARZA VENT WITH VENT SETTINGS A/C 12, VT 500, FIO2 30%. NO CHANGES MADE ON CURRENT SETTINGS. 7.5 ET TUBE IS PATENT AND SECURED AT APPROXIMATELY 21CM AT THE LIP. CUFF CHECKED. HME CHANGED. ORAL CARE DONE. SUCTIONED VERY SMALL AMOUNT OF PALE SECRETIONS. ALARM PARAMETERS CHECKED, ARE ON AND AUDIBLE. BVM AT BEDSIDE. VENT PLUGGED INTO RED EMERGENCY OUTLET. WILL CONTINUE TO MONITOR. ABG TO BE DONE AT 0900.
[2016-10-14 06:55] LABS: BASOPHILS # (AUTO) 0.1 K/uL (0.0-0.2); BASOPHILS % (AUTO) 0.4 % (0.0-2.0); EOSINOPHILS # (AUTO) 0.3 K/uL (0.0-0.7); EOSINOPHILS % (AUTO) 0.9 % (0.0-7.0); HEMATOCRIT 28.6 % (37.0-47.0); HEMOGLOBIN 9.8 g/dL (12.0-16.0); LYMPHOCYTES # (AUTO) 2.1 K/uL (0.8-4.8); LYMPHOCYTES % (AUTO) 6.2 % (20.5-51.5); MEAN CORPUSCULAR HEMOGLOBIN 30.7 uug (27.0-31.0); MEAN CORPUSCULAR HGB CONC 34 g/dL (32.0-37.0); MONOCYTES # (AUTO) 1.3 K/uL (0.1-1.30); MONOCYTES % (AUTO) 3.9 % (0.0-11.0); NEUTROPHILS % (AUTO) 88.6 % (38.5-71.5); PLATELET COUNT (AUTO) 65 K/uL (150-450); RED BLOOD CELL COUNT(AUTO) 3.17 MIL/uL (4.20-5.40); RED CELL DISTRIBUTION WIDTH 16.5 % (11.5-14.5)
[2016-10-14 07:04] LABS: WHITE BLOOD COUNT (AUTO) 33.8 K/uL (4.0-11.2)
[2016-10-14 07:15] LABS: ALBUMIN 2.2 g/dL (3.4-5.0); BILIRUBIN,TOTAL 6.7 mg/dL (0.2-1.0); CALCIUM 8.4 mg/dL (8.5-10.1); MAGNESIUM 1.9 mg/dL (1.8-2.4); POTASSIUM 4.6 mmol/L (3.5-5.1); TOTAL PROTEIN, SERUM 3.7 g/dL (6.4-8.2)
[2016-10-14 07:24] LABS: EOSINOPHILS % (MANUAL) 1 % (0-8); LYMPHOCYTES % (MANUAL) 8 % (20-40); MONOCYTES % (MANUAL) 3 % (2-10); NEUTROPHILS % (MANUAL) 88 % (42-75); PLATELET ESTIMATE DECREASED
[2016-10-14 07:25] LABS: ANISOCYTOSIS 1+
[2016-10-14 08:03] LABS: CREATININE 3.1 mg/dL (0.6-1.3)
[2016-10-14] MEDS: PROPAFENONE HCL 150 MG TABLET PO SCH (08:11)
[2016-10-14] MEDS: PANTOPRAZOLE SODIUM 40 MG VIAL IV SCH ×2 (08:12→20:30)
[2016-10-14] MEDS: Z GUARD REMEDY PASTE 57 GM TUBE TOP SCH ×2 (08:12→20:23)
[2016-10-14] MEDS: CHOLECALCIFEROL 1,000 UNIT TABLET PO SCH (08:12)
[2016-10-14] MEDS: LOPERAMIDE HCL 1 MG/5 ML UDC GT PRN (08:22)
[2016-10-14] MEDS: LORAZEPAM 2 MG/1 ML VIAL IV PRN (08:22)
--- NOTE | 2016-10-14 09:58 | NUR ---
CALLED DOCTOR OK FOR ADDITIONAL VASOPRESSORS. PATIENT IS MAXED ON LEVOPHED. PICC LINE INSERTION PENDING
--- NOTE | 2016-10-14 10:08 | NUR ---
PAGEAmeya OROZCO FOR CRITICAL ABG RESULTS
[2016-10-14 10:16] LABS: ABG BASE EXCESS -26.7 mmol/L; ABG HCO3 3.5 mmol/L; ABG PCO2 15.7 mmHg (35.0-45.0); ABG PO2 503.6 mmHg (75.0-100.0); ABG SITE LEFT RADIAL; ABG TOTAL HEMOGLOBIN 9.9 G/dL (12.0-16.0); COHb 0.5 % (0.5-1.5); MetHb 0.5 % (0.0-1.5); O2Hb 98.9 % (94.0-97.0); VENT MODE VENT - A/C; VT, ABG 500 mL
--- NOTE | 2016-10-14 10:21 | NUR ---
PAGED DOCTOR ERNESTO REGARDING CRITICAL ABG RESULTS ORDERED SEPSIS PROTOCOL VILLA CULTURES AND IVF BOLUS 30ML/KG. CALL DOCTOR EUCEDA TO ADDRESS THE NEED FOR BICARB AND ANY OTHER ADDITIONAL ORDERS.
[2016-10-14] MEDS ORDERED: IV NS 1000 ML 1,000 ML IV ONE (10:30)
[2016-10-14] MEDS: NOREPINEPHRINE BITARTRATE 16 MG in IV DEXTROSE 5% 500 ML IV PRN ×2 (10:30→21:43)
--- NOTE | 2016-10-14 11:26 | NUR ---
UNABLE TO COLLECT SPUTUM OR URINE CULTURES AT THIS TIME NO SPECIMEN OUTPUT FROM PATIENT. PATIENT HAS NO SECRETIONS AND IS ANURIC
[2016-10-14 11:28] LABS: ALBUMIN 2.1 g/dL (3.4-5.0); BILIRUBIN,DIRECT 4.3 mg/dL (0.0-0.2); BILIRUBIN,TOTAL 6.4 mg/dL (0.2-1.0); CALCIUM 8.4 mg/dL (8.5-10.1); TOTAL PROTEIN, SERUM 3.6 g/dL (6.4-8.2)
[2016-10-14 11:31] LABS: CREATININE 3.1 mg/dL (0.6-1.3)
--- NOTE | 2016-10-14 12:02 | NUR ---
2ND CALL TO DOCTOR OK NO CALL BACK FOR ABG RESULTS FOLLOW UP.
[2016-10-14] MEDS ORDERED: POTASSIUM CHLORIDE 50 ML IV SCH (12:30)
--- NOTE | 2016-10-14 13:30 | NUR ---
EMERGENCY RESPONSE COORDINATOR IN UNIT.
[2016-10-14] MEDS: SODIUM BICARBONATE 8.4% 50 MEQ in IV D5 1/2 NS 1000 ML 1,000 ML IV PRN (13:36)
--- NOTE | 2016-10-14 13:48 | NUR ---
Clinical Pharmacy Note: Vancomycin Dosing per Pharmacy Subjective: Vancomycin IV to continue on this dialysis patient for worsening of sepsis -empiric (per ID note). Objective: BUN 18/Scr 3.1 WBC 33.8 Temperature 98 Vancomycin pre HD level 17 Assessment/Plan: Patient will be dialyzed today. Vancomycin 500mg IVPB x1 to be given today post HD since vancomycin re-HD level is between 15-20 mcg/ml (per vanco dosing protocol per HD patients). Will continue dose by pre-HD random level. Will follow the dialysis schedule daily for further dosing.
--- NOTE | 2016-10-14 14:00 | NUR ---
as per RN come back at 230, currently doing a procedure on a pt . MC
--- NOTE | 2016-10-14 14:00 | NUR ---
UNABLE TO DO CHEST XRAY WHILE EEG BEING DONE.
[2016-10-14] MEDS: MICAFUNGIN SODIUM 100 MG in IV NORMAL SALINE 100 ML IV SCH (14:03)
--- NOTE | 2016-10-14 14:15 | NUR ---
DIALYSIS NURSE IN UNIT. PATIENT IS PREPPED TO START DIALYSIS POST EEG.
--- NOTE | 2016-10-14 14:50 | NUR ---
CXR CAME BACK TO UNIT. DIALYSIS ALREADY STARTED TO DO DIALYSIS
[2016-10-14] MEDS: ALBUMIN HUMAN 25% 100 ML IV PRN ×2 (15:20→15:23)
[2016-10-14] MEDS: PHENYLEPHRINE IV 40 MG in IV DEXTROSE 5% 250 ML IV PRN (15:23)
[2016-10-14] MEDS ORDERED: VANCOMYCIN IV 500 MG in IV DEXTROSE 5% 100 ML IV ONE (17:00)
--- NOTE | 2016-10-14 20:00 | NUR ---
Brother called in, updated with events of the day. Made aware of pt's critical state. Pt remains on vent. support. On Bicarb drip 50 ml/hr, Levophed drip titrating to keep SBP =>100, has been off Neosynephrine. See IV spreadsheet. Dr Howe here, made aware of sepsis protocol done earlier. MD added Aztreonam to antibiotic regimen. Feedings continue at 25 ml/hr with no residual. OGTube placement confirmed. Flexiseal output blood tinged, yellow. Please see CCU flowsheet for full assessment and clinical data.
[2016-10-14] MEDS: LEVETIRACETAM IV 500 MG in IV DEXTROSE 5% 100 ML IV SCH (20:23)
[2016-10-14] MEDS: CEFEPIME HCL 0.5 G in IV DEXTROSE 5% 50 ML IV SCH (20:30)
--- NOTE | 2016-10-14 20:30 | NUR ---
Remains hypothermic, on Gaby Hugger. Anasarca, upper extremities very weepy. Kept clean/dry and arms up on pillows at all times.
--- NOTE | 2016-10-14 21:12 | NUR ---
PT ON CONT ESPARZA VENT WITH 7.5 ET/TUBE IN PLACE AND SECURED, WITH SETTINGS, A/C 12 VT 500ML, 40% FOUND ON PT AT THIS TIME, ALSO NOTIFIED NURSE OF THE VENT SETTINGS,. PT DOES ASSIST 27-30 BREATHS PER MINUTE, VERY WEAK COUGH AND GAG REFLEX, ALL ALARMS OK, AMBU BAG AT BEDSIDE, NO OTHER VENT CHANGES MADE AT THIS TIME, SAT 100%. Ameya ROJASP Addendum: 10/14/16 at 2114 by WILLIAM MARTINEZ RT Amended: Links added.
[2016-10-14] MEDS: AZTREONAM 0.5 G in IV NORMAL SALINE 50 ML IV SCH (21:44)
[2016-10-15] VITALS (89 sets, daily range): BP systolic 60–166; BP diastolic 29–132
--- NOTE | 2016-10-15 04:00 | NUR ---
Unable to wean Levophed. Pt sensitive to any slight changes. Close monitoring continues.
[2016-10-15 04:55] LABS: ALBUMIN 2.1 g/dL (3.4-5.0); BILIRUBIN,TOTAL 7.6 mg/dL (0.2-1.0); CALCIUM 6.9 mg/dL (8.5-10.1); MAGNESIUM 1.6 mg/dL (1.8-2.4); PHOSPHOROUS 6.1 mg/dL (2.5-4.9); POTASSIUM 4.2 mmol/L (3.5-5.1); TOTAL PROTEIN, SERUM 2.9 g/dL (6.4-8.2)
--- NOTE | 2016-10-15 05:10 | NUR ---
PT ON CONT ESPARZA VENT WITH 7.5 ET/ TUBE IN PLACE AND SECURED, WITH SETTINGS, A/C 12, VT 500ML, 40%, PT DOES ASSIST 20-30 BPM, SUCTIONED VERY LITTLE LIGHT YELL TINGE SECRETIONS, WITH VERY WEAK COUGH EFFORT, AND WEAK GAG REFLEX, CHANGE HME, SPUTUM SAMPLE DONE, ORAL CARE DONE, CLEAN MOUTH, NO VENT CHANGES MADE AT THIS TIME, ALL ALARMS OK, AMBU BAG AT BEDSIDE, SAT 98-99%. Ameya MARTINEZ RCP Addendum: 10/15/16 at 0515 by WILLIAM MARTINEZ RT Amended: Links added.
[2016-10-15] MEDS: AZTREONAM 0.5 G in IV NORMAL SALINE 50 ML IV SCH ×2 (05:14→14:30)
[2016-10-15] MEDS: VANCOMYCIN FOR PO/GT/NG USE PO SCH ×3 (05:14→18:28)
[2016-10-15] MEDS: POLYVINYL ALCOHOL OPHT DROPS 15 ML BOTTLE EACHEYE PRN ×2 (05:15→20:00)
[2016-10-15] MEDS: IV NORMAL SALINE 250 ML IV PRN (05:48)
[2016-10-15] MEDS: NOVASOURCE RENAL 1000 ML LIQUID GT PRN (05:50)
--- NOTE | 2016-10-15 06:00 | NUR ---
Gaby Venegasgger in use all night; temp slowly improving. Otherwise general condition unchanged. Please see CCU flowsheet for trends and clinical data.
[2016-10-15 06:01] LABS: MEAN CORPUSCULAR HEMOGLOBIN 30.9 uug (27.0-31.0); MEAN CORPUSCULAR HGB CONC 33 g/dL (32.0-37.0); MEAN CORPUSCULAR VOLUME 93.4 fL (81.0-99.0); RED CELL DISTRIBUTION WIDTH 18.3 % (11.5-14.5); WHITE BLOOD COUNT (AUTO) 27.7 K/uL (4.0-11.2)
[2016-10-15] MEDS: PREMIXED IV SCH ×3 (06:11→22:05)
[2016-10-15] MEDS: BLOOD SUGAR DIAGNOSTIC 1 EACH STRIP VI SCH ×3 (06:11→18:23)
[2016-10-15] MEDS: METRONIDAZOLE IV SCH ×3 (06:11→22:05)
[2016-10-15] MEDS: [UNRECOGNIZED DRUG - OTHER] IV SCH ×3 (06:11→22:05)
[2016-10-15 07:04] LABS: RED BLOOD CELL COUNT(AUTO) 1.95 MIL/uL (4.20-5.40)
[2016-10-15 07:07] LABS: HEMATOCRIT 18.2 % (37.0-47.0); PLATELET COUNT (AUTO) 42 K/uL (150-450)
--- NOTE | 2016-10-15 08:00 | NUR ---
seen by dr dhaliwal with new orders. condition report given. Addendum: 10/15/16 at 0924 by KEON BENITEZ RN Amended: Links added.
[2016-10-15] MEDS: CHOLECALCIFEROL 1,000 UNIT TABLET PO SCH (08:46)
[2016-10-15] MEDS: PANTOPRAZOLE SODIUM 40 MG VIAL IV SCH ×2 (08:46→20:52)
[2016-10-15] MEDS: Z GUARD REMEDY PASTE 57 GM TUBE TOP SCH ×2 (08:48→20:52)
[2016-10-15] MEDS: LOPERAMIDE HCL 1 MG/5 ML UDC GT PRN (08:48)
--- NOTE | 2016-10-15 09:07 | NUR ---
Clinical Pharmacy Note: Vancomycin Dosing per Pharmacy Subjective: Vancomycin IV to continue on this dialysis patient for worsening of sepsis -empiric (per ID note). Objective: BUN 11/Scr 2 WBC 27.7 Temperature 98 Assessment/Plan: No dialysis has been scheduled for today. No vancomycin dose shall be due today as per vancomycin dosing protocol per HD patients. Will continue dose by pre-HD random level. Will follow the dialysis schedule daily for further dosing.
[2016-10-15 09:43] LABS: ANISOCYTOSIS 2+; BAND % (MANUAL) 4 % (0-10); LYMPHOCYTES % (MANUAL) 15 % (20-40); MONOCYTES % (MANUAL) 4 % (2-10); NEUTROPHILS % (MANUAL) 77 % (42-75)
[2016-10-15 09:44] LABS: PLATELET ESTIMATE MARKED DECREASED
--- NOTE | 2016-10-15 09:53 | NUR ---
left message for dr martinez re: g results. ph 6.7, pco2 16. Fio2 titrated down to 30% PO2 177 Addendum: 10/15/16 at 0955 by KEON BENITEZ RN Amended: Links added.
[2016-10-15 09:58] LABS: ABG BASE EXCESS -30.5 mmol/L; ABG HCO3 2.2 mmol/L; ABG PCO2 16.1 mmHg (35.0-45.0); ABG PH 6.758 (7.350-7.450); ABG PO2 177.4 mmHg (75.0-100.0); ABG SITE RIGHT RADIAL; ABG TOTAL HEMOGLOBIN 6.6 G/dL (12.0-16.0); COHb 2.5 % (0.5-1.5); MetHb 1.2 % (0.0-1.5); O2Hb 95.4 % (94.0-97.0); VENT MODE VENT - A/C; VT, ABG 500 mL
--- NOTE | 2016-10-15 10:16 | NUR ---
dr martinez returned call, no orders received. dr meehan contacted re acidosis Addendum: 10/15/16 at 1017 by KEON BENITEZ RN Amended: Links added.
[2016-10-15] MEDS ORDERED: SODIUM BICARBONATE 8.4% 50 MEQ/50 ML DISP.SYRIN IV ONE (10:30)
--- NOTE | 2016-10-15 10:32 | NUR ---
talked to dr madhuri byers orders received Addendum: 10/15/16 at 1033 by KEON BENITEZ RN Amended: Links added. Addendum: 10/15/16 at 1107 by KEON BENITEZ RN Amended: Links added.
[2016-10-15] MEDS: SODIUM BICARBONATE 8.4% 50 MEQ in IV D5 1/2 NS 1000 ML 1,000 ML IV PRN (10:42)
--- NOTE | 2016-10-15 10:45 | NUR ---
sodium bicarbonate 50meq given IVpush. IV fluid D5 1/2 NS plus 1 amp sodium bicarbonate remains at 50ml/hr. Addendum: 10/15/16 at 1107 by KEON BENITEZ RN Amended: Links added.
--- NOTE | 2016-10-15 11:28 | NUR ---
seen by dr martinez and dr gray. both mds aware of patient's worsening condition Addendum: 10/15/16 at 1129 by KEON BENITEZ RN Amended: Links added. Addendum: 10/15/16 at 1131 by KEON BENITEZ RN Amended: Links added.
--- NOTE | 2016-10-15 11:28 | NUR ---
PT RECEIVED ON ESPARZA VENT, SETTINGS AC 12, VT 500, 30% FIO2. 7.5 ETT IS PATENT AND SECURED WITH ETT CARMONA APPROX 21 CM AT THE LIP. NO S/S OF RESPIRATORY DISTRESS NOTED AT THIS TIME. HAS MINIMAL AMOUNT OF THIN PALE YELLOW SECRETIONS. ALARMS ARE ON AND AUDIBLE, BVM AT BEDSIDE. WILL CONTINUE TO MONITOR.
--- NOTE | 2016-10-15 11:31 | NUR ---
accucheck 85, no insulin coverage Addendum: 10/15/16 at 1131 by KEON BENITEZ RN Amended: Links added.
[2016-10-15] MEDS ORDERED: ALBUMIN HUMAN 25% 100 ML IV ONE (13:15)
--- NOTE | 2016-10-15 13:15 | NUR ---
patient pulseless, asystole and unable to get a blood pressure despite maximum doses of neosynephrine and levophed. code blue called. Addendum: 10/15/16 at 1344 by KEON BENITEZ RN Amended: Links added.
--- NOTE | 2016-10-15 13:25 | NUR ---
keny alejandro. talked to dr Alas and to the family. DNR order obtained thereafter. fio2 now up to 100% fio2 Addendum: 10/15/16 at 1346 by KEON BENITEZ RN Amended: Links added.
--- NOTE | 2016-10-15 13:25 | NUR ---
PT VENTILATED WITH BVM 100% DURING CODE BLUE. PLACED BACK ON PREVIOUS SETTINGS WITH 100% FIO2 POST CODE. WILL CONTINUE TO MONITOR.
--- NOTE | 2016-10-15 13:30 | NUR ---
2ND UNIT PRBCS RETURNED to the Blood [facility]. MD dr dhaliwal cancelled 2nd unit prbcs
[2016-10-15] MEDS: NOREPINEPHRINE BITARTRATE 16 MG in IV DEXTROSE 5% 500 ML IV PRN ×3 (13:50→21:15)
[2016-10-15] MEDS: PHENYLEPHRINE IV 40 MG in IV DEXTROSE 5% 250 ML IV PRN ×2 (13:51→14:37)
[2016-10-15] MEDS: MICAFUNGIN SODIUM 100 MG in IV NORMAL SALINE 100 ML IV SCH (13:52)
[2016-10-15] MEDS ORDERED: LEVOFLOXACIN 500 MG/D5W 500 MG in PREMIXED 1 EACH IV ONE (15:45)
--- NOTE | 2016-10-15 16:07 | NUR ---
family at the bedside. updated with current condition. Addendum: 10/15/16 at 1612 by KEON BENITEZ RN Amended: Hermelinda added. Addendum: 10/15/16 at 1614 by KEON BENITEZ RN Amended: Hermelinda gutiérrez.
--- NOTE | 2016-10-15 16:12 | NUR ---
family at the bedside. updated with current condition. Addendum: 10/15/16 at 1612 by KEON BENITEZ RN Amended: Hermelinda added. Addendum: 10/15/16 at 1614 by KEON BENTIEZ RN Amended: Hermelinda gutiérrez.
--- NOTE | 2016-10-15 16:13 | NUR ---
dr miller informed of new microbiology result from the stools. Addendum: 10/15/16 at 1614 by KEON BENITEZ RN Amended: Links added.
[2016-10-15] MEDS: PHENYLEPHRINE IV 80 MG in IV DEXTROSE 5% 250 ML IV PRN ×2 (17:31→22:49)
[2016-10-15] MEDS: INSULIN REGULAR, HUMAN 300 UNIT/3 ML VIAL SQ PRN (18:26)
--- NOTE | 2016-10-15 19:01 | NUR ---
Received pt orally intubated with 7.5 ETT ~21cm at lip line, on Marlow vent with the following settings of AC-12, Vt-500, FIO2-100%. No s/s of respiratory distress noted. Airway care done, (noticed blood in the sputum, RN notified). Low saturation reading on monitor, RN aware. Resus. bag at bedside. Vent and alarms checked and reset.
--- NOTE | 2016-10-15 19:25 | NUR ---
report given to Laureen. Patient on maximim dose of neosynephrine drip, levophed at 30mcg/min/ abd fio2 back to 100%. tube fdg on hold for episodes of emesis total of 300 ml. remains anuric. and hypothermic , kept on Odilia Hugger.. remains with bloody diarrhea. remains on contact isolation
[2016-10-15] MEDS ORDERED: VASOPRESSIN 50 UNIT in IV DEXTROSE 5% 500 ML IV PRN (20:30)
--- NOTE | 2016-10-15 20:30 | NUR ---
Received order for Pitressin & given permission to start at max dose; from Dr Jay.
--- NOTE | 2016-10-15 20:30 | NUR ---
Received order for Felisa g8v from Dr Jay Addendum: 10/15/16 at 2258 by JOSIE BERRY RN disregard this note
[2016-10-15] MEDS: LEVETIRACETAM IV 500 MG in IV DEXTROSE 5% 100 ML IV SCH (20:52)
[2016-10-15] MEDS: CEFEPIME HCL 0.5 G in IV DEXTROSE 5% 50 ML IV SCH (20:52)
--- NOTE | 2016-10-15 21:00 | NUR ---
Due to O2 calibration and low battery clock alarms changed vent with the same settings. Pulse ox probe placed on pt's forehead, better reading and wave form on monitor noted.
--- NOTE | 2016-10-15 21:45 | NUR ---
Updated via telephone (DPOA) Jarett Baker to events of the day. He spoke with Cas.
[2016-10-16] VITALS (9 sets, daily range): BP systolic 0–112; BP diastolic 0–45
[2016-10-16] MEDS: BLOOD SUGAR DIAGNOSTIC 1 EACH STRIP VI SCH (00:01)
[2016-10-16] MEDS: INSULIN REGULAR, HUMAN 300 UNIT/3 ML VIAL SQ PRN (00:01)
[2016-10-16] MEDS: VANCOMYCIN FOR PO/GT/NG USE PO SCH (00:01)
--- NOTE | 2016-10-16 02:05 | NUR ---
Patient pronounced, by BRITTNY Roberts. Calls to family, waiting for call-backs.
--- NOTE | 2016-10-16 02:05 | NUR ---
Pt pronounced by CATHY Ashby
--- NOTE | 2016-10-16 02:22 | NUR ---
Patient apneic for 5 minutes. Pupils fixed and dilated. No audible heart tones or breath sounds. No palpable pulses and corneal reflexes. Pronounced @ 0205.
--- NOTE | 2016-10-16 03:05 | NUR ---
Message to answering service Dr Alas / patients passing.
--- NOTE | 2016-10-16 03:05 | NUR ---
To [facility] sayda.
[2016-10-17] MEDS ORDERED: LEVOFLOXACIN 250MG /D5W 250 MG in PREMIXED 1 EACH IV SCH (09:00)
== END 2016-10-16 02:05 | disposition expired | DRG 870 ==
LOC: ER 15:21 → MED 17:05 → TELE-TD 09-26 09:21 → CCU 09-26 18:56 → TELE-TD 09-27 16:00 → CCU 10-02 18:22
PROVIDERS: ADMIT Internal Medicine Nephrology; ATTEND Internal Medicine Nephrology
PROC: 05H633Z Insertion of Infusion Device into Left Subclavian Vein, Percutaneous Approach (ICD-10-PCS; principal; 2016-09-26)
PROC: B547ZZA Ultrasonography of Left Subclavian Vein, Guidance (ICD-10-PCS; 2016-09-26)
PROC: 30233N1 Transfusion of Nonautologous Red Blood Cells into Peripheral Vein, Percutaneous Approach (ICD-10-PCS; 2016-10-01)
PROC: 5A1955Z Respiratory Ventilation, Greater than 96 Consecutive Hours (ICD-10-PCS; 2016-10-02)
PROC: 0BH18EZ Insertion of Endotracheal Airway into Trachea, Via Natural or Artificial Opening Endoscopic (ICD-10-PCS; 2016-10-02)
PROC: 5A12012 Performance of Cardiac Output, Single, Manual (ICD-10-PCS; 2016-10-02)
PROC: 02H63JZ Insertion of Pacemaker Lead into Right Atrium, Percutaneous Approach (ICD-10-PCS; 2016-10-03)
PROC: 02HK3JZ Insertion of Pacemaker Lead into Right Ventricle, Percutaneous Approach (ICD-10-PCS; 2016-10-03)
PROC: 0JH606Z Insertion of Pacemaker, Dual Chamber into Chest Subcutaneous Tissue and Fascia, Open Approach (ICD-10-PCS; 2016-10-03)
PROC: 06HM33Z Insertion of Infusion Device into Right Femoral Vein, Percutaneous Approach (ICD-10-PCS; 2016-10-04)
PROC: B54BZZA Ultrasonography of Right Lower Extremity Veins, Guidance (ICD-10-PCS; 2016-10-04)
PROC: 5A1D60Z (ICD-10-PCS; 2016-10-04)
PROC: 30233K1 Transfusion of Nonautologous Frozen Plasma into Peripheral Vein, Percutaneous Approach (ICD-10-PCS; 2016-10-07)
PROC: 30233R1 Transfusion of Nonautologous Platelets into Peripheral Vein, Percutaneous Approach (ICD-10-PCS; 2016-10-09)
DX: A41.9 Sepsis, unspecified organism (principal); J15.6 Pneumonia due to other Gram-negative bacteria; N17.0 Acute kidney failure with tubular necrosis; D65 Disseminated intravascular coagulation [defibrination syndrome]; J96.01 Acute respiratory failure with hypoxia; R65.21 Severe sepsis with septic shock; K72.00 Acute and subacute hepatic failure without coma; J15.9 Unspecified bacterial pneumonia; J69.0 Pneumonitis due to inhalation of food and vomit; N39.0 Urinary tract infection, site not specified; A04.7 Enterocolitis due to Clostridium difficile; D62 Acute posthemorrhagic anemia; D68.9 Coagulation defect, unspecified; E87.2 Acidosis; K57.92 Diverticulitis of intestine, part unspecified, without perforation or abscess without bleeding; I44.2 Atrioventricular block, complete; K57.32 Diverticulitis of large intestine without perforation or abscess without bleeding; E83.42 Hypomagnesemia; R62.7 Adult failure to thrive; E11.22 Type 2 diabetes mellitus with diabetic chronic kidney disease; E78.5 Hyperlipidemia, unspecified; E86.1 Hypovolemia; E87.70 Fluid overload, unspecified; M32.9 Systemic lupus erythematosus, unspecified; Z86.73 Personal history of transient ischemic attack (TIA), and cerebral infarction without residual deficits; E86.0 Dehydration; M1A.9XX0 Chronic gout, unspecified, without tophus (tophi); I48.2 Chronic atrial fibrillation; Z79.01 Long term (current) use of anticoagulants; N39.41 Urge incontinence; L89.152 Pressure ulcer of sacral region, stage 2; L89.312 Pressure ulcer of right buttock, stage 2; I46.9 Cardiac arrest, cause unspecified; I49.5 Sick sinus syndrome; G40.409 Other generalized epilepsy and epileptic syndromes, not intractable, without status epilepticus; F03.90 Unspecified dementia, unspecified severity, without behavioral disturbance, psychotic disturbance, mood disturbance, and anxiety; I12.9 Hypertensive chronic kidney disease with stage 1 through stage 4 chronic kidney disease, or unspecified chronic kidney disease; I25.10 Atherosclerotic heart disease of native coronary artery without angina pectoris; I25.2 Old myocardial infarction; I51.7 Cardiomegaly; I73.9 Peripheral vascular disease, unspecified; K22.70 Barrett's esophagus without dysplasia; K29.80 Duodenitis without bleeding; N18.9 Chronic kidney disease, unspecified; Z87.11 Personal history of peptic ulcer disease; Z87.19 Personal history of other diseases of the digestive system; Z87.891 Personal history of nicotine dependence; K20.9 Esophagitis, unspecified
CPT/HCPCS: 36415; 36569; 36600; 70030-TC; 71010; 74000; 76000; 76700; 76770; 83550; 83605; 83735; 84100; 84443; 85025; 85610; 85730; 86625; 86850; 86900; 86901; 86920; 87040; 87046; 87070; 87086; 90937; 92506; 92526; 92950; 93005; 94002; 94003; 95819; 97001; 97003; 97110; A4217; A4649; A4663; C1751; C1758; C1769; C9113; J0692; J0696; J1265; J1644; J1815; J1940; J1953; J1956; J2060; J2185; J2248; J2250; J2270; J2370; J2405; J2543; J3010; J3370; J3475; J3480; J3490; J7030; J7040; J7042; J7050; J7060; J7070; J7131; P9016-BL; P9017-BL; P9021; P9035-BL; P9047; Q9967